=== PATIENT | female | born 1980 | race African-American/Black ===

== ENCOUNTER 2018-10-05 19:36 | Emergency (ER) | payer MEDICAID, SELFPAY ==
[2018-10-05 19:38] VITALS: BP 156/105; PULSE 96; RESP 18; TEMP 37.4; O2SAT 99; BMI 34.4
--- NOTE | 2018-10-05 20:00 | US_ITS ---
STUDY: FIRST TRIMESTER OBSTETRICAL ULTRASOUND REASON FOR EXAM: Female, 38 years old. Spotting in early . LMP: 08/02/2018 TECHNIQUE: Transvaginal real-time examined with grayscale image documentation. TECHNICAL QUALITY: Adequate. PRIOR ULTRASOUND: None. FINDINGS: There is visualization of a single gestational sac in a normal intrauterine position. The mean sac diameter (MSD) measures 1.26 cm, indicating an estimated gestational age (EGA) of 6 weeks, 0 days. The gestational sac shape is within normal limits. There is no demonstrated yolk sac. The placenta is not visualized secondary to early gestational age. There is no demonstrated embryo ( pole). The estimated gestation age (EGA) by LMP is 9 weeks, 1 days. The estimated date of delivery (SERAFIN) by LMP is 05/09/2019. The estimated gestation age (EGA) by US is 6 weeks, 0 days. The estimated date of delivery (SERAFIN) by US is 05/31/2019. The uterus measures 11.1 x 7.6 x 6.5 cm. There is a 2.2 x 2.1 x 2.1 cm fibroid of the lower uterine segment. There is a 2.4 x 2.4 x 1.8 cm right uterine fibroid. The cervix is closed. The right ovary measures 2.9 x 1.7 x 1.4 cm. There is no right ovarian cyst. There is no visualized right adnexal mass or complex lesion. The left ovary measures 3.4 x 2.4 x 1.4 cm. There is a hypervascular nodule of the left ovary measuring less than 2 cm most likely an involuting corpus luteum cyst. There is no visualized left adnexal mass or complex lesion. There is no fluid in the cul de sac. US/Transvaginal w/Preg US IMPRESSION: Single intrauterine gestational sac measuring 6 weeks and 0 days without visualized pole or yolk sac. Findings suggest a blighted ovum. Negative for subchorionic hemorrhage. The cervix is closed. There are multiple fibroids the largest of which are 2.2 x 2.1 x 2.1 cm in the lower uterus and 2.4 x 2.4 x 1.8 cm in the right uterus. Normal right ovary. Hypervascular hypoechoic nodule of the left ovary measuring less than 2 cm probably an involuting corpus luteum. No additional adnexal masses or free fluid. Electronically Signed: Marlee Rivera MD at 22:21 EST , Service support ,
--- NOTE | 2018-10-05 20:03 | ED.DCSUM_ITS ---
- ER Visit Summary Date of Service: 10/05/18 Chief Complaint: [] Vaginal bleeding saw BD SPECIAL EDUCATION TEACHER today 6 hours ago History of Present Illness: The patient is a 38 F [] reports she was seen today by her BD SPECIAL EDUCATION TEACHER found to be 5 weeks, by dates, had a full ECHO TECH evaluation pelvic exam pelvic ultrasound the pelvic ultrasound did not show from her description an obvious IUP she was told she need further outpatient management and is scheduled for additional therapy next week she did have blood drawn somewhere up she believes in the [facility], she presents concerned that she is having a miscarriage, she is having the same pelvic cramps at the same intermittent as she describes tiny amount of vaginal bleeding no other complaints She left the office 6 hours ago and she agrees that really nothing has changed since she left the office Physical Examination: [] General, no distress resting comfortably HEENT is generally unremarkable The neck is supple no adenopathy Cardiovascular, regular rate and rhythm Lungs, clear bilateral Abdomen, soft nontender, please note she just had a pelvic exam in the office so that is deferred she agrees Extremities, no clubbing cyanosis or edema Neurologic, awake alert answering questions appropriately moving all 4 extremities Do not have access to the studies given all of the above screening labs pelvic ultrasound will be done to evaluate for possibility of ectopic Patient CBC is unremarkable her quant is 12,000 the pelvic ultrasound shows gestational sac 6 weeks size no other acute abnormalities Just all the above with the patient discussed the concept of threatened AB the need to help with her product development specialist for further management she agrees we will confirm her ABO Rh status and have her follow-up with her physicians and return for change in symptoms Test Results: [] Emergency Department Course and Treatment: [] Treatment Plan: [] Disposition: [] Home stable Impression: [] Apparent early based on ultrasound, threatened AB This note was generated with [employer] software. It may contain incorrect words, spelling, and punctuation that were not noted in review of the chart prior to signing ED Disposition - Plan for ED Patient: Chief Complaint: Vag Bld, Preg Referrals: Tal Story MD [Primary Care Provider] -
[2018-10-05 22:11] LABS: hCG Titer Quant., Serum 12181 mIU/mL (<9 non-preg)
[2018-10-05] MEDS: 0.9% Normal Saline 1,000 ML 1000 ML IV (22:25)
[2018-10-05 22:26] LABS: Absolute Lymphocyte Count 2.22 X10^3/ul (0.83-4.51); Absolute Neutrophil Count 5.4 X10^3/uL (2.0-7.7); Basophil# 0.01 X10^3/uL; Basophil% 0.1 % (0-1); Eosinophil# 0.03 X10^3/uL; Eosinophils% 0.4 % (0-5); Hematocrit 34.3 % (37-47); Hemoglobin 10.7 g/dl (12.0-15.0); Lymphocyte # 2.22 X10^3/ul (4.0); Lymphocyte % 26.9 % (19-41); Mean Corp Hgb Conc 31.2 g/gl (32-36); Mean Corpuscular Hgb 23.2 pg (27.0-32.0); Mean Corpuscular Volume 74.2 fL (81-99); Mean Platelet Vol. 9.1 fl (6.2-12.0); Monocyte# 0.59 X10^3/uL; Monocyte% 7.2 % (0-10); Neutrophil # 5.38 X10^3/uL (2.7-7.7); Neutrophil % 65.3 % (47-70); POSITIVE COUNT NO; POSITIVE DIFFERENTIAL NO; POSITIVE MORPHOLOGY NO; Platelet Count 281 K/mm3 (150-450); RBC Distribution Width CV 16.4 % (11.6-14.6); RBC Distribution Width SD 44.2 fl (35.1-43.9); Red Blood Count 4.62 M/mm3 (4.2-5.4); White Blood Count 8.2 K/mm3 (4.4-11.0)
[2018-10-05 22:27] VITALS: BP 125/86; PULSE 85; RESP 16; O2SAT 100
--- NOTE | 2018-10-05 22:46 | DCINST.ED_ITS ---
ED Disposition - Plan for ED Patient: Chief Complaint: Vag Bld, Preg Instructions: ED Miscarriage Poss Referrals: Tal Story MD [Primary Care Provider] - Additional Instructions: Please follow-up with her outpatient providers including her recreation leader tomorrow return for change in symptoms
[2018-10-05 22:59] VITALS: BP 124/82; PULSE 74; RESP 16; O2SAT 98
--- OUTSIDE RECORDS SUMMARY | 2018-11-21 15:23 | XMS RPT_ITS ---
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 (HPV) D*INVALID FOR*02/03/2016 Surveillance of previously prescribed contracep*INVALID FOR*02/03/2016 Knee sprain and strain [WSD2684] INVALID FOR*02/03/2016 Patellofemoral disorder of right knee [M22.2X1] INVALID FOR*02/03/2016 Supervision of other normal [Z34.80] INVALID FOR*02/03/2016 More... Trichomonal vaginitis in [O23.599, A5*INVALID FOR*02/03/2016 More... Encounter for supervision of normal first pregn*INVALID FOR*09/23/2015 Encounter for supervision of normal i*INVALID FOR*02/03/2016 Chronic bilateral low back pain without sciatic*INVALID FOR* Encounter Status:Closed by BROCK ROBIN MD on 05/09/18 PROGRESS Observed: 11/25/2017 Status: COMPLETED Source: [facility] 10:54 AM [facility] REPOSITORY HNO ID: [id number] Author: Nedra Tran (Neftali) TANESHA Tovar Service: (none) Author Type: Nurse Practitioner Type: Progress Notes Filed: 11/25/2017 10:57 AM Note Text: HPI Patient presents with: stomach pain and nausea: x 1 week-zofran is not helping and worsening pain Pt reports seen at [facility] ED for stomach pain. Reviewed with pt urgent care policy of not completing ED f/u. Pt verbalized understanding. Family will transport to local ED for eval/tx. ROS Physical Exam ALLERGIES ALLERGIES DATE TYPE / CODE NAME / CODE REACTION SEVERITY SOURCE 10/27/2018 Drug iodine/[id number] Hives Unknown [facility] Allergy/4160 852(RXNORM) [facility] [address](SNOMED Repository CT) 09/28/2005 DRUG IODINE RASH [facility] INGREDI/[address] [place] [address](SNOMED Repository CT) ENCOUNTERS ENCOUNTERS ADMIT/DISCHARGE ACCOUNT ADMITTING ENCOUNTER LOCATION SOURCE NUMBER CLASS 11/07/2018/11/08/[id number] [place] Repository 10/27/2018/10/28/19 [id number] Emergency Jose Ramon[address] ing:ED Repository 10/19/2018/10/23/[id number] Repository 10/10/2018/10/11/20 [id number] Ambulatory [address] Repository 10/07/2018/10/07/[id number] Repository 10/05/2018/10/05/20 [id number] Emergency Jose Ramon[address] ing:ED Repository 10/05/2018/10/05/20 [id number] Ambulatory [address] [place] Repository 10/05/2018/10/05/20 [id number] Ambulatory [address] [place] Repository 10/05/2018/10/10/20 [id number] Ambulatory [address] [place] Repository 10/05/2018/10/05/20 [id number] Ambulatory [address] [place] Repository 08/23/2018/08/24/20 [id number] Ambulatory [address] [place] Repository 08/15/2018/08/16/20 [id number] Ambulatory [address] [place] Repository 05/09/2018/05/10/20 [id number] Ambulatory [address] [place] Repository 11/25/2017/11/25/19 [id number] Ambulatory [address] [place] Repository PAYERS PAYERS ENCOUNTER GUARANTOR PAYER SUBSCRIBER SOURCE 10/27/2018 RAYMOND MARK [facility] Insurance:TOBY POLO: Replaced By [facility] GILBERT parmar Number: [id number] [id number] Repository [address]Kyj: [phone]) Date:2018-10-27P O [phone] (HP) [address]ATTN: [place] [address]IZ: 10/27/2018 Secondary NOT GIVENUNK Jose Ramon Insurance:SELF PAY [facility]: Effective Repository Date:2018-10-27 10/05/2018 SHANIQUIA L Primary SHANIQUIA L [facility] Insurance:[address] [facility] [id number] [id number] Repository [address] [place] [address] Date:2018-10-05P O [phone]: [phone] [address]ATTN: CLAIMS [phone] (HP) [place] [address]WS: 10/05/2018 Secondary NOT GIVENUNK Jose Ramon Insurance:SELF PAY [facility] Number: Effective Repository Date:2018-10-05
== END 2018-10-05 23:01 | disposition home or self-care (01) ==
PROVIDERS: Emergency Provider Emergency Medicine; Family Provider Internal Medicine; PCP Internal Medicine
DX: O20.0 Threatened abortion (principal)
CPT/HCPCS: 76817; 84702; 85025; 86900; 96360; 99283; J7030; A4216

== ENCOUNTER 2018-10-27 22:12 | Emergency (ER) | payer MEDICAID, SELFPAY ==
[2018-10-27 22:13] VITALS: BP 138/79; PULSE 82; RESP 16; TEMP 36.8; O2SAT 100; BMI 33.5
[2018-10-27 22:57] LABS: Absolute Lymphocyte Count 1.87 X10^3/ul (0.83-4.51); Absolute Neutrophil Count 4.4 X10^3/uL (2.0-7.7); Basophil# 0.03 X10^3/uL; Basophil% 0.4 % (0-1); Eosinophil# 0.11 X10^3/uL; Eosinophils% 1.6 % (0-5); Hematocrit 33.4 % (37-47); Hemoglobin 10.2 g/dl (12.0-15.0); Lymphocyte # 1.87 X10^3/ul (4.0); Lymphocyte % 26.6 % (19-41); Mean Corp Hgb Conc 30.5 g/gl (32-36); Mean Corpuscular Hgb 23.4 pg (27.0-32.0); Mean Corpuscular Volume 76.6 fL (81-99); Mean Platelet Vol. 10.8 fl (6.2-12.0); Monocyte# 0.56 X10^3/uL; Neutrophil # 4.44 X10^3/uL (2.7-7.7); Neutrophil % 63.1 % (47-70); POSITIVE COUNT NO; POSITIVE DIFFERENTIAL NO; POSITIVE MORPHOLOGY NO; Platelet Count 212 K/mm3 (150-450); RBC Distribution Width CV 17.5 % (11.6-14.6); RBC Distribution Width SD 47.4 fl (35.1-43.9); Red Blood Count 4.36 M/mm3 (4.2-5.4)
[2018-10-27 23:10] LABS: Anion Gap 10 (5-15); BUN 6 mg/dL (7-18); BUN/Creat Ratio 8.2 RATIO (10-20); Calcium,Total 8.9 mg/dL (8.5-10.1); Chloride 106 mmol/L (98-107); Creatinine, Serum 0.74 mg/dL (0.55-1.02); EST Glomerular Filtration Rate 94 mL/min (>60); Est Glom Filt Rate - Afr Amer 114 mL/min (>60); Estimated Creatinine Clearance 89.88 ml/min; Glucose 116 mg/dL (74-106); Potassium 3.9 mmol/L (3.5-5.1); Sodium Level 137 mmol/L (136-145)
[2018-10-27 23:20] LABS: Pregnancy, Serum, hCG Quali. POSITIVE Negative (0-9 Nonpreg)
[2018-10-27 23:21] LABS: hCG Titer Quant., Serum 21 mIU/mL (<9 non-preg)
[2018-10-27] MEDS: 0.9% Normal Saline 1,000 ML 999 ML IV (23:29)
[2018-10-27] MEDS: Ketorolac 30 MG/ML Syringe IV (23:29)
[2018-10-27] MEDS: Ondansetron 4 MG/2 ML Vial IV (23:30)
[2018-10-27 23:37] LABS: Lipase 92 U/L (73-393)
[2018-10-27 23:40] VITALS: BP 138/74; PULSE 68; RESP 16; O2SAT 100
[2018-10-27 23:44] LABS: Bacteria 0 SEEN /hpf (None Seen); Mucous, Urine 0 SEEN /hpf (<or=2+); Red Blood Cells-Urine 0 SEEN /hpf (0-5); Squamous Epithelial Cells - UA 0 SEEN /hpf (5-10); White Blood Cells 0 SEEN /hpf (0-5)
[2018-10-27 23:46] LABS: Color, Urine Yellow (Yellow); Glucose, Dipstick Normal (Normal); Ketone-Dipstick Negative (Negative); Leukocyte Esterase-Dipstick Negative /ul (Negative); Nitrite-Dipstick Negative (Negative); Occult Blood-Urine 25 /ul (Negative); Protein-Dipstick Negative (Negative); Urine Bilirubin Dipstick Negative (Negative); Urine Clarity Clear (Clear); Urine Urobilinogen Normal (Normal); Urine pH 6.5 (5.0 - 8.0)
[2018-10-27 23:53] LABS: AST(SGOT) 24 U/L (15-37); Alanine Aminotransfer ALT/SGPT 19 U/L (13-56); Albumin, Serum 3.4 g/dL (3.2-5.0); Alkaline Phosphatase 58 U/L (45-117); Bilirubin, Direct 0.08 mg/dL (0.00-0.30); Globulin 4.1 g/dL (2.2-4.2); Protein, Total 7.5 g/dL (6.4-8.2)
--- NOTE | 2018-10-28 00:26 | ED.VISSUMM ---
- ER Visit Summary Date of Service: 10/28/18 Chief Complaint: Abdominal pain History of Present Illness: The patient is a 38 F who presents with abdominal pain. Is been present for 5 days. She complains of diffuse cramping pain. The patient provides a history but the visitor frequently interrupts and conflicts with this. The patient denied any vomiting however the visitor stated that she has been vomiting at which point the patient said that she has had some small emesis. Patient denies any vaginal bleeding. She denies any vaginal discharge. She had a fever of 102 with the initial onset of symptoms but has only been running a low-grade fever since that time with temperature 100.5. She did have a recent miscarriage. She had seen her OB and then presented here to the emergency department. She had a pelvic ultrasound most consistent with blighted ovum. She states she did follow-up with OB and had a repeat ultrasound which showed a completed miscarriage. Physical Examination: Afebrile vitals normal Moist mucous membranes Heart regular rate and rhythm Lungs are clear Abdomen soft nondistended she does have some diffuse nonfocal tenderness no guarding no rebound Alert Test Results: Labs including CBC CMP lipase unremarkable. Urinalysis unremarkable. Quantitative hCG 21. Emergency Department Course and Treatment: Patient was treated with IV fluids Toradol and Zofran. She is improved on reevaluation. Given that she had a follow-up ultrasound and was told that she had completed her miscarriage and her quant is now down to 21 I do not believe any further obstetrical workup necessary at this time such as repeat ultrasound. She was advised on supportive care. She was given a prescription for antiemetics. She understands to return for new or worsening symptoms. She was discharged. Treatment Plan: [] Disposition: Discharge Impression: Abdominal pain Vomiting Diarrhea This note was generated with [facility] dictation software. It may contain incorrect words, spelling, and punctuation that were not noted in review of the chart prior to signing ED Disposition - Plan for ED Patient: Chief Complaint: Abd Pain Referrals: Tal Story MD [Primary Care Provider] -
--- NOTE | 2018-10-28 00:30 | ED.DCSUM_ITS ---
- ER Visit Summary Date of Service: 10/28/18 Chief Complaint: Abdominal pain History of Present Illness: The patient is a 38 F who presents with abdominal pain. Is been present for 5 days. She complains of diffuse cramping pain. The patient provides a history but the visitor frequently interrupts and conflicts with this. The patient denied any vomiting however the visitor stated that she has been vomiting at which point the patient said that she has had some small emesis. Patient denies any vaginal bleeding. She denies any vaginal discharge. She had a fever of 102 with the initial onset of symptoms but has only been running a low-grade fever since that time with temperature 100.5. She did have a recent miscarriage. She had seen her OB and then presented here to the emergency department. She had a pelvic ultrasound most consistent with blighted ovum. She states she did follow-up with OB and had a repeat ultrasound which showed a completed miscarriage. Physical Examination: Afebrile vitals normal Moist mucous membranes Heart regular rate and rhythm Lungs are clear Abdomen soft nondistended she does have some diffuse nonfocal tenderness no guarding no rebound Alert Test Results: Labs including CBC CMP lipase unremarkable. Urinalysis un remarkable. Quantitative hCG 21. Emergency Department Course and Treatment: Patient was treated with IV fluids Toradol and Zofran. She is improved on reevaluation. Given that she had a follow-up ultrasound and was told that she had completed her miscarriage and her quant is now down to 21 I do not believe any further obstetrical workup necessary at this time such as repeat ultrasound. She was advised on supportive care. She was given a prescription for antiemetics. She understands to return for new or worsening symptoms. She was discharged. Treatment Plan: [] Disposition: Discharge Impression: Abdominal pain Vomiting Diarrhea This note was generated with [employer] dictation software. It may contain incorrect words, spelling, and punctuation that were not noted in review of the chart prior to signing ED Disposition - Plan for ED Patient: Chief Complaint: Abd Pain Referrals: Tal Story MD [Primary Care Provider] -
--- NOTE | 2018-10-28 00:31 | ED.DEP ---
ED Disposition - Plan for ED Patient: Chief Complaint: Abd Pain Instructions: ED Abdominal Pain Unkn Cause Prescriptions: Ondansetron [Zofran Odt] 4 mg PO Q8H PRN PRN #10 tab PRN Reason: Nausea Referrals: Tal Story MD [Primary Care Provider] -
[2018-10-28 00:47] VITALS: BP 125/73; PULSE 72; RESP 18; O2SAT 100
== END 2018-10-28 00:48 | disposition home or self-care (01) ==
LOC: ED 10-28 00:35
PROVIDERS: Emergency Provider Emergency Medicine; Family Provider Internal Medicine; PCP Internal Medicine
DX: R10.84 Generalized abdominal pain (principal); R19.7 Diarrhea, unspecified; R11.2 Nausea with vomiting, unspecified
CPT/HCPCS: 80048; 80076; 81001; 83690; 84702; 84703; 85025; 96361; 96374; 96375; 99283; J7030; A4216; J2405

== ENCOUNTER → 2019-01-23 09:15 | Outpatient (CLI) | payer MEDICAID, SELFPAY ==
[2019-01-23 09:10] VITALS: BMI 33.5
[2019-01-23 10:56] LABS: Absolute Lymphocyte Count 1.47 X10^3/ul (0.83-4.51); Absolute Neutrophil Count 2.2 X10^3/uL (2.0-7.7); Basophil# 0.01 X10^3/uL; Basophil% 0.2 % (0-1); Eosinophil# 0.05 X10^3/uL; Eosinophils% 1.2 % (0-5); Hematocrit 40.6 % (37-47); Lymphocyte # 1.47 X10^3/ul (4.0); Lymphocyte % 35.1 % (19-41); Mean Corpuscular Hgb 26.4 pg (27.0-32.0); Mean Corpuscular Volume 82.4 fL (81-99); Mean Platelet Vol. 9.5 fl (6.2-12.0); Monocyte# 0.42 X10^3/uL; Neutrophil # 2.24 X10^3/uL (2.7-7.7); Neutrophil % 53.5 % (47-70); POSITIVE COUNT NO; POSITIVE DIFFERENTIAL NO; POSITIVE MORPHOLOGY NO; Platelet Count 234 K/mm3 (150-450); RBC Distribution Width CV 18.1 % (11.6-14.6); RBC Distribution Width SD 54.9 fl (35.1-43.9); Red Blood Count 4.93 M/mm3 (4.2-5.4); White Blood Count 4.2 K/mm3 (4.4-11.0)
[2019-01-23 11:28] LABS: Glucose Challenge Gest 1H 50g 116 mg/dL (70-140); T4 Free Direct 1.12 ng/dL (0.76-1.46); Thyroid Stim Hormone (TSH) 1.18 uIU/mL (0.358-3.74)
[2019-01-23 12:05] LABS: HIV - WCH Non-Reactive (Nonreactive); Rubella IgG 50.6 IU/mL
[2019-01-23 18:31] LABS: Protein, Urine (Random) 9.6 mg/dL (<11.9); Protein:Creat Ratio 46 mg/g CRE (0-200)
[2019-01-23 20:14] LABS: Chlamydia Trachomatis by PCR Negative (Negative); Neisserai gonorrhoeae by PCR Negative (Negative); Probe Check PASS; Sample Adequacy Control PASS; Specimen Processing Control PASS
[2019-01-24 14:07] LABS: Hemoglobin Fraction A 97.8 % (96.4-98.8); Hemoglobin Fraction A2 2.2 % (1.8-3.2); Hemoglobin Fraction C 0 % (0.0); Hemoglobin Fraction F 0 % (0.0-2.0); Hemoglobin Fraction S 0 % (0.0); Hemoglobin Solubility,Panel Negative (Negative)
[2019-01-25 14:35] LABS: HEPATITIS B SURFACE AG Negative (Negative)
[2019-01-26 03:38] LABS: Rapid Plasmin Reagin (RPR) NONREACTIVE (NONREACTIVE)
[2019-01-29 03:05] LABS: HPV Genotype 16, Aptima Negative (Negative)
[2019-01-29 11:47] LABS: HPV APTIMA, High Risk Positive (Negative); HPV Genotype 18,45 Aptima Negative (Negative)
== END ==
PROVIDERS: Family Provider Internal Medicine; PCP Internal Medicine; Referring Provider Obstetrics & Gynecology; Visit Provider Obstetrics & Gynecology
DX: O09.90 Supervision of high risk pregnancy, unspecified, unspecified trimester (principal); O99.210 Obesity complicating pregnancy, unspecified trimester; O99.280 Endocrine, nutritional and metabolic diseases complicating pregnancy, unspecified trimester; E01.0 Iodine-deficiency related diffuse (endemic) goiter; Z3A.00 Weeks of gestation of pregnancy not specified; Z87.59 Personal history of other complications of pregnancy, childbirth and the puerperium
CPT/HCPCS: 36415; 82570; 82950; 83021; 84156; 84439; 84443; 85025; 85660; 86592; 86703; 86762; 86850; 86900; 87086; 87088; 87340; 87491; 87591; 87624; 88175; G0145

== ENCOUNTER → 2019-01-26 13:53 | Outpatient (CLI) | payer MEDICAID, SELFPAY ==
[2019-01-23 09:10] VITALS: BMI 33.5
--- NOTE | 2019-01-26 13:55 | US_ITS ---
STUDY: THYROID ULTRASOUND REASON FOR EXAM: Female, 38 years old. Thyromegaly TECHNIQUE: Ultrasound evaluation of the thyroid was performed with real-time and static ocampo-scale imaging. COMPARISON: None. FINDINGS: RIGHT LOBE: The right lobe of the thyroid gland measures 5.2 x 2 x 1.7 cm. There is a homogeneous echotexture. Single solid nodule measuring 6 x 5 x 3 mm in the mid to lower pole region. LEFT LOBE: The left lobe of the thyroid gland measures 5.5 x 2.0 x 1 point cm. There is a homogeneous echotexture. There are no demonstrated solid, cystic or complex lesions. ISTHMUS: The isthmus measures 0.5 cm. The regional lymph nodes are normal. US/Thyroid IMPRESSION: Mild thyromegaly with small subcentimeter right lobe thyroid nodule Electronically Signed: Cy Renteria DO at 12:48 EDT Tel , Service support ,
== END ==
PROVIDERS: Family Provider Internal Medicine; PCP Internal Medicine; Referring Provider Obstetrics & Gynecology; Visit Provider Obstetrics & Gynecology
DX: E01.0 Iodine-deficiency related diffuse (endemic) goiter (principal)
CPT/HCPCS: 76536

== ENCOUNTER → 2019-02-05 | Outpatient (CLI) | payer MEDICAID, SELFPAY ==
[2019-02-05 10:07] VITALS: BMI 33.5
== END | disposition home or self-care (01) ==
LOC: LAB 10:35
PROVIDERS: Family Provider Internal Medicine; PCP Internal Medicine; Referring Provider Obstetrics & Gynecology; Visit Provider Obstetrics & Gynecology
DX: Z34.81 Encounter for supervision of other normal pregnancy, first trimester (principal); Z31.430 Encounter of female for testing for genetic disease carrier status for procreative management
CPT/HCPCS: 36415

== ENCOUNTER → 2019-03-06 14:20 | Outpatient (CLI) | payer MEDICAID, SELFPAY ==
[2019-03-06 10:29] VITALS: BMI 33.5
--- NOTE | 2019-03-06 14:22 | US_ITS ---
STUDY: OBSTETRICAL ULTRASOUND - LIMITED REASON FOR EXAM: Female, 38 years old. Assess viability. LMP: 09/25/2018 PRIOR ULTRASOUND: None. TECHNIQUE: Transabdominal and Transvaginal TECHNICAL QUALITY: Adequate. FINDINGS: There is a single intrauterine fetus. The fetus is in a cephalic presentation. There is no demonstrated cardiac activity. The placenta is anterior There are Grade 0 placental changes. The cervix measures 2.83 cm in length. The cervix is low lying and possibly covers the internal os. The crown-rump length measures 5.49 cm corresponding to gestational age of 12 weeks and 1 day. US/OB Limited (No Biometrics) IMPRESSION: Findings consistent with failure. Anterior and low-lying placenta with questionable placenta previa. Electronically Signed: Sarah Victoria MD at 16:56 EDT Tel , Service support ,
== END ==
PROVIDERS: Family Provider Internal Medicine; PCP Internal Medicine; Referring Provider Obstetrics & Gynecology; Visit Provider Obstetrics & Gynecology
DX: O36.80X0 Pregnancy with inconclusive fetal viability, not applicable or unspecified (principal)
CPT/HCPCS: 76815

== ENCOUNTER 2019-03-08 08:55 | Day surgery (SDC) | payer MEDICAID, SELFPAY ==
[2019-03-06 10:29] VITALS: BMI 33.5
--- NOTE | 2019-03-07 03:06 | HP.PCM_ITS ---
- Problem List (1) Abnormal test Status: Acute Comment: high risk trisomy 18, patient wishes to continue , have US with MFM (2) Hx LEEP (loop electrosurgical excision procedure), cervix, Status: Acute Comment: check cervical length at 18 weeks (3) Hypertension Status: Chronic Comment: baseline labs ordered. ekg. no meds. (4) Genital herpes Status: Acute Comment: valtrex at 36 weeks (5) HPV test positive Status: Acute Comment: repeat pap (6) Thyromegaly Status: Acute Comment: tsh free t4 thyroid ultrasound (7) Depression affecting Status: Acute Comment: celexa, counseling recommended (8) Status: Acute Qualifiers: Comment: carrier, genetic, and ntd screening desired. 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: No Is patient in pain?: No Allergies iodine Allergy (Verified 03/06/19 10:29) Hives Medications Pnv No.121/Iron/Folic Acid [ Multivitamin Tablet] 1 ea PO DAILY 10/05/18 [History Confirmed 03/06/19] Ondansetron [Zofran Odt] 4 mg PO Q8H PRN PRN #10 tab 10/28/18 [Rx Confirmed 03/06/19] citalopram 20 mg tablet 20 mg PO DAILY #30 tab 01/23/19 [Rx Confirmed 03/06/19] promethazine 12.5 mg tablet 12.5 mg PO Q6H PRN #120 tab 01/23/19 [Rx Confirmed 03/06/19] Last Menstral Period: 11/21/18 Zika: Zika virus screening: Negative : No PFSH PFSH Medical History Low grade squamous intraepithelial lesion (LGSIL) (Resolved) Surgical History H/O hernia repair (Acute) Family History Unknown Diabetes Social History Smoking Status: Never smoker alcohol intake: never substance use type: does not use caffeine: Yes what type of physical activity do you participate in: walking seatbelt use: always do you feel safe at home: Yes additional social history: - Works at [employer] Pregancy History 4 Elective abortions Hx Para 2 Spontaneous abortions 1 Hx # Term Pregnancies Ectopic pregnancies Hx # Pregnancies Multiple births # of living children Past Pregnancies Del. Date Name GA/Weeks Outcome Route Bth Weight Gen [facility] 2007 Tayshaun live - full term [facility] Unknown 2015 Major live - full term Male [facility] Unknown 2017 SAB HPI 14 WEEK OB: Details: IDA IQBAL is a 38 year old who presents for routine OB visit. she denies any vaginal bleeding or lof. on exam and confirmed by formal ultrasound she has a confirmed missed ab with CRL measuring only 12 weeks. she has had abnormal genetic screening at high risk for trisomy 18. ACOG First Trimester First Trimester: Desire for , Alcohol, Tobacco Cessation, Illicit/Recreational Drug/Substance Use, Intimate Partner Violence, Barriers to care, Unstable Housing, Communication Barriers, Environmental/Work Hazards, Anticipated Course of Care, Toxoplasmosis Precations, Use of Any medications, Sexual activity, Exercise, Dental Care, Sauna/Hot tub use, Seat Belt use, Childbirth classes/Hospital facilities, , Travel, Indications for US and Screening for Aneuploidy Diagnostics Diagnostics Labs Blood Type B POSITIVE 01/23/19 Antibody Screen NEGATIVE 01/23/19 Hct 40.6 % (37-47) 01/23/19 Hgb 13.0 g/dl (12.0-15.0) 01/23/19 Obstetrics Ultrasound 03/06/19 Rubella IgG Antibody 50.6 IU/mL 01/23/19 RPR NONREACTIVE (NONREACTIVE) 01/23/19 Hep Bs Antigen Negative (Negative) 01/23/19 Chlam trachomat DNA PCR Negative (Negative) 01/23/19 N.gonorrhoeae DNA (PCR) Negative (Negative) 01/23/19 Glucose 1 Hr 50 gm 116 mg/dL (70-140) 01/23/19 Rhogam given: No 11/16/15 Miscellaneous Test Pending 02/05/19 Details: HIV: Urine Culture: Sequential Screen: NIPT Screen: ROS Const Reports system reviewed and no additional complaints, except as docu Card Reports system reviewed and no additional complaints, except as docu Resp Reports system reviewed and no additional complaints, except as docu GI Reports system reviewed and no additional complaints, except as docu, Reports nausea Reports system reviewed and no additional complaints, except as docu Musc Reports system reviewed and no additional complaints, except as docu Exam Const General: cooperative, healthy appearing, comfortable, anxious HENMT Head: normal to inspection Nose: external nose normal Face and sinus: normal facial exam Neck Neck: normal visual inspection, full ROM, no lymphadenopathy Thyroid: thyroid normal Chest Chest palpation & inspection: normal inspection of the chest Resp Effort & Inspection: normal respiratory effort Other: Cervical Exam: Extrem General: pedal edema Results [id number] Office Urine Glucose Negative Last Edit by Chel Paredes on 03/06/19 10:33 Office Urine Protein Negative Last Edit by Chel Paredes on 03/06/19 10:33 Assessment & Plan Problems 1. Hypertension I10 2. Depression affecting O99.340; F32.9 3. Hx LEEP (loop electrosurgical excision procedure), cervix, O34.40; Z98.890 4. History of pre-eclampsia Z87.59 5. 15 weeks gestation of Z3A.15 6. Low grade squamous intraepithelial lesion (LGSIL) 7. Genital herpes A60.00 8. Subchorionic hematoma in first trimester O41.8X10; O46.8X1 9. Supervision of high risk in second trimester O09.92 10. HPV test positive 11. Multigravida of advanced maternal age in first trimester O09.521 12. Thyromegaly E01.0 13. Missed O02.1 Plan recommend suction d and c. discussed surgical risks including risks of anesthesia, infection, bleeding, injury to bowel, bladder or blood vessels, and patient wishes to proceed with surgery. Orders Orders: POC Urinalysis 2 Dip (Clinic) 03/06/19 OB Limited 03/06/19 O36.80X0 Coding Level of Care Code Off vis,est,level 4 Diagnoses Hypertension I10 Depression affecting O99.340; F32.9 Hx LEEP (loop electrosurgical excision procedure), cervix, O34.40; Z98.890 History of pre-eclampsia Z87.59 15 weeks gestation of Z3A.15 Weeks of gestation: 15 weeks Low grade squamous intraepithelial lesion (LGSIL) Genital herpes A60.00 Subchorionic hematoma in first trimester O41.8X10; O46.8X1 Supervision of high risk in second trimester O09.92 Trimester: second trimester HPV test positive Multigravida of advanced maternal age in first trimester O09.521 Trimester: first trimester Thyromegaly E01.0 Missed O02.1
[2019-03-08] VITALS (7 sets, daily range): BP systolic 132–151; BP diastolic 75–93; PULSE 72–111; RESP 18; TEMP 36.1–36.7; O2SAT 100; BMI 36.4
--- NOTE | 2019-03-08 | POC_PTH ---
PATIENT: IDA IQBAL LOC: [facility] U#:[id number] AGE/SX: 38/F ROOM: RE03/08/[address]: Dr. Kirti Sweeney MD : 1980 BED: DIS: 03/08/2019 SPEC #: [id number] RECD: 03/08/19 13:04 STATUS: ROSA SALVATORE #: [id number] TANYA: 03/08/19 00:[address]: Kirti Sweeney DEPT: SURGICAL PATHOLOGY RECD BY: Fabian Atkinson ENTERED: 03/08/19 13:04 SP TYPE: PROD CONC OTHR DR: Dr. Tal Story MD Tissues: Product of conception, NOS Procedures: Surgery Specimen Level IV HEADER OPERATION: Dilation and curettage, suction PRE-OP DIAGNOSIS: Missed TISSUE SUBMITTED: Products of conception, LMP 11/21/18 MICROSCOPIC DIAGNOSIS Endometrium, curettage: Portions of macerated fetus, chorionic villi and decidualized tissue consistent with products of conception. AM:yanick 03/09/19 MICROSCOPIC DESCRIPTION Slides are reviewed. GROSS DESCRIPTION Received in fixative is one container labeled with the patient's name and designated products of conception. The specimen consists of multiple irregular fragments of pink-austin soft tissue that in aggregate measure 8 x 7 x 1.2 cm. The specimen contains portions of a macerated fetus measuring 7 cm in length. Turntable Operator portions are submitted for cytogenetic studies. Turntable Operator portions of fetus and tissue are submitted in two cassettes. / AM:yanick 03/08/19 TC:5 CPT: 72005
[2019-03-08 09:26] LABS: Hemoglobin 13.9 g/dl (12.0-15.0); Mean Corp Hgb Conc 33.9 g/gl (32-36); Mean Corpuscular Hgb 28.1 pg (27.0-32.0); Mean Corpuscular Volume 82.8 fL (81-99); Platelet Count 209 K/mm3 (150-450); RBC Distribution Width CV 15.2 % (11.6-14.6); RBC Distribution Width SD 45.3 fl (35.1-43.9); Red Blood Count 4.95 M/mm3 (4.2-5.4); White Blood Count 5.4 K/mm3 (4.4-11.0)
[2019-03-08] MEDS: Doxycycline 100 MG CAPSULE PO (09:26)
[2019-03-08 09:27] LABS: Scan Indicated on CBC? Y/N NO
--- NOTE | 2019-03-08 10:33 | PCM.OPRPT ---
Problem List (1) Abnormal test Status: Acute Comment: high risk trisomy 18, patient wishes to continue , have US with MFM (2) Hx LEEP (loop electrosurgical excision procedure), cervix, Status: Acute Comment: check cervical length at 18 weeks (3) Hypertension Status: Chronic Comment: baseline labs ordered. ekg. no meds. (4) Genital herpes Status: Acute Comment: valtrex at 36 weeks (5) HPV test positive Status: Acute Comment: repeat pap (6) Thyromegaly Status: Acute Comment: tsh free t4 thyroid ultrasound (7) Depression affecting Status: Acute Comment: celexa, counseling recommended (8) Status: Acute Qualifiers: Comment: carrier, genetic, and ntd screening desired. (9) AMA (advanced maternal age) multigravida 35+ Status: Acute Qualifiers: Comment: genetic conseling, plan 36 week growth us (10) Supervision of high-risk Status: Acute Qualifiers: Comment: SERAFIN 09/04/19 Sherine Sanabria (11) History of pre-eclampsia Status: Acute Comment: baseline labs, baby ASA at 12 weeks Report of Operation Date of Procedure: 03/08/19 Pre-Operative Diagnosis: Suspected trisomy 18, missed AB Post-Operative Diagnosis: Same Surgery/Procedure Performed:: Suction D&C Description of Surgical Findings:: 12-week size uterus Type of Anesthesia:: Local MAC Special Medications: Cytotec Specimen's removed: Products of conception Drains: None Estimated Blood Loss (mL): 200 cc Fluids Replaced: Crystalloid Description of Procedure: Patient was taken to the operating room and placed under MAC local anesthesia. She was prepped and draped in the normal sterile fashion the dorsal lithotomy position. Bladder was drained of clear urine and anterior lip of the cervix was grasped and the uterus sounded to 12 cm . Cervix was progressively dilated to allow passage of a 12 mm suction curette. Progressive passes were made removing the retained products of conception without complication. Sharp curettage confirmed complete removal of the retained products. All instruments were removed from the vagina and excellent hemostasis was noted and the patient was taken to recovery in stable condition. Grafts/Implants Used: None - Complications None - Admit VTE Documentation VTE Present on Admission: No VTE Mechan Device Prophylaxis: SCD's
[2019-03-08] MEDS: miSOPROStol 200 MCG Tablet ×2 (11:15)
--- NOTE | 2019-03-08 11:57 | DCINST_ITS ---
Discharge Diet: No Restrictions Discharge Activity: Return to Normal Activity, May Shower, May Take a Tub Bath Instructions: Understanding Miscarriage: Emotions, Understanding Miscarriage: Trying Again, Understanding Miscarriage: Recovery Allergies/Adverse Reactions: Allergies iodine Allergy (Verified 03/08/19 09:20) Hives Medications to take at Discharge NK 03/07/19 Primary Care Physician: Tal Story MD [Primary Care Provider] - Test Results: Test results from this visit will be discussed in further detail at your follow- up appointment, if applicable. Please Follow Up With: Kirti Sweeney MD - [phone]
== END 2019-03-08 12:40 | disposition home or self-care (01) ==
LOC: SDC 08:57 → AC 08:57
PROVIDERS: Family Provider Internal Medicine; PCP Internal Medicine; Referring Provider Obstetrics & Gynecology; Visit Provider Obstetrics & Gynecology
PROC: (CPT 59821; principal; 2019-03-08 10:15)
DX: O02.1 Missed abortion (principal); I10 Essential (primary) hypertension; Z79.899 Other long term (current) drug therapy
CPT/HCPCS: 59821; 85027; 86850; 86900; 88305; J7120

== ENCOUNTER 2019-06-24 10:41 | Emergency (ER) | payer MEDICAID, SELFPAY ==
[2019-03-23 08:28] VITALS: BMI 36.4
[2019-06-24 10:42] VITALS: BP 131/85; PULSE 79; RESP 16; TEMP 36.6; O2SAT 99; BMI 33.5
--- NOTE | 2019-06-24 10:57 | ED.VISSUMM ---
- ER Visit Summary Date of Service: 06/24/19 Chief Complaint: Nausea for 3 days History of Present Illness: The patient is a 38 F. Past medical history. Prior umbilical hernia repair. Patient states the last 3 days she had nausea but no vomiting or diarrhea. No dysuria. No vaginal bleeding or discharge. Last menstrual period was May 19 she is only a few days late. States her boyfriend has similar symptoms of nausea she gave it to him. No falls or head trauma. No neurological symptoms. Patient states she took a urine test at home that was negative she is concerned she could be and wants to be tested. Physical Examination: Well-appearing young female. Vital signs stable afebrile. HEENT exam normal. Dry reactive light. No facial droop. No trauma to her face or scalp. Nontender. Neck nontender no lymphadenopathy. No meningismus. Able to touch chin to chest. Lungs clear to auscultation bilaterally. Heart regular rhythm no murmur. Abdomen is soft and nontender. Normal bowel sounds no peritoneal signs. Extremities moves all 4. Neurovascular intact. Equal and symmetrical sustainable design consultant strength. Equal symmetrical dorsi and plantar flexion. Neurologically she is awake alert with no focal motor or sensory deficits. NIH score is 0. Test Results: test shows Emergency Department Course and Treatment: Patient with a normal exam with nausea. She is concerned she may be wants to be tested. He has Zofran for nausea. Treatment Plan: [] Disposition: Discharge Impression: Acute nausea secondary to viral syndrome. This note was generated with [employer] dictation software. It may contain incorrect words, spelling, and punctuation that were not noted in review of the chart prior to signing ED Disposition - Plan for ED Patient: Referrals: Tal Story MD [Primary Care Provider] -
--- NOTE | 2019-06-24 11:00 | ED.DEP ---
ED Disposition - Plan for ED Patient: Disposition: Home or Assisted Living Instructions: VOMITING (7y-Adult) Prescriptions: Ondansetron [Zofran Odt] 4 mg PO Q8H PRN PRN #10 tab PRN Reason: Nausea Prescription Printed Referrals: Tal Story MD [Primary Care Provider] - Additional Instructions: Zofran as needed for nausea. You may either swallowed or dissolve underneath her tongue. Plenty fluids and rest. Follow-up if not improving.
[2019-06-24] MEDS: Ondansetron ODT 4 MG Tablet 8 MG PO (11:03)
[2019-06-24 11:35] LABS: Internal QC Validated? YES +Cl - CLEAR BKGD; Pregnancy, Serum, hCG Quali. NEGATIVE Negative
== END 2019-06-24 11:45 | disposition home or self-care (01) ==
LOC: ED 11:11
PROVIDERS: Emergency Provider Emergency Medicine; Family Provider Internal Medicine; PCP Internal Medicine
DX: B34.9 Viral infection, unspecified (principal); R11.0 Nausea
CPT/HCPCS: 36415; 84703; 99283

== ENCOUNTER → 2019-09-25 08:41 | Outpatient (CLI) | payer MEDICAID, SELFPAY ==
[2019-09-25 09:32] LABS: hCG Titer Quant., Serum 480 mIU/mL (1-3)
== END ==
PROVIDERS: Family Provider Internal Medicine; PCP Internal Medicine; Referring Provider Obstetrics & Gynecology; Visit Provider Obstetrics & Gynecology
DX: N91.2 Amenorrhea, unspecified (principal)
CPT/HCPCS: 36415; 84702

== ENCOUNTER → 2019-10-31 12:24 | Outpatient (CLI) | payer MEDICAID, SELFPAY ==
--- NOTE | 2019-10-31 | EMB_PTH ---
PATIENT: IDA IQBAL LOC: [facility]#:[id number] AGE/SX: 44/F ROOM: RE10/31/[address]: Dr. Kirti Sweeney MD : 1980 BED: DIS: SPEC #: [id number] RECD: 10/31/19 12:33 STATUS: ROSA SALVATORE #: [id number] TANYA: 10/31/19 00:[address]: Kirti Sweeney DEPT: SURGICAL PATHOLOGY RECD BY: Addie Morales ENTERED: 10/31/19 13:49 SP TYPE: ENDOM BX/C MIKAEL DR: Dr. Tal Story MD Tissues: Endometrium, NOS Procedures: Surgery Specimen Level IV HEADER OPERATION: Not noted PRE-OP DIAGNOSIS: Complete TISSUE SUBMITTED: Endometrial tissue MICROSCOPIC DIAGNOSIS Endometrial tissue: Fragments of inflamed decidual tissue and blood clots. Scant fragment of benign endometrial tissue. See comment. SJ:yanick 11/01/19 COMMENT Villi are not identified. The entire specimen is examined. This case is discussed with Dr. Sweeney on 11/01/19. MICROSCOPIC DESCRIPTION Slides are reviewed. GROSS DESCRIPTION Received is one container labeled with the patient's name and not further designated. The specimen consists of multiple fragments of hemorrhagic soft tissue that in aggregate measure 4 x 4 x 0.7 cm. tissue is not identified. The entire specimen is submitted in four cassettes. / SJ:rg 10/31/19 TC:5 CPT: 15652
[2019-10-31 11:48] VITALS: BMI 33.5
[2019-10-31 12:55] LABS: Absolute Lymphocyte Count 2.47 X10^3/uL (0.83-4.51); Absolute Neutrophil Count 3.7 X10^3/uL (2.0-7.7); Basophil# 0.02 X10^3/uL; Basophil% 0.3 % (0-1); Eosinophil# 0.11 X10^3/uL; Eosinophils% 1.6 % (0-5); Hemoglobin 10.3 g/dL (12.0-15.0); Lymphocyte # 2.47 X10^3/ul (4.0); Lymphocyte % 36.2 % (19-41); Mean Corp Hgb Conc 32.2 g/dL (32-36); Mean Corpuscular Hgb 28.8 pg (27.0-32.0); Mean Corpuscular Volume 89.4 fL (81-99); Mean Platelet Vol. 9.3 fl (6.2-12.0); Monocyte# 0.54 X10^3/uL; Monocyte% 7.9 % (0-10); NRBC Flagged by Analyzer 0 % (0-5); Neutrophil # 3.67 X10^3/uL (2.7-7.7); Neutrophil % 53.7 % (47-70); Platelet Count 257 K/mm3 (150-450); RBC Distribution Width CV 12.9 % (11.6-14.6); RBC Distribution Width SD 42.2 fl (35.1-43.9); Red Blood Count 3.58 M/mm3 (4.2-5.4); White Blood Count 6.8 K/mm3 (4.4-11.0)
[2019-10-31 13:27] LABS: hCG Titer Quant., Serum 1201 mIU/mL (1-3)
== END ==
PROVIDERS: Family Provider Internal Medicine; PCP Internal Medicine; Referring Provider Obstetrics & Gynecology; Visit Provider Obstetrics & Gynecology
DX: O03.9 Complete or unspecified spontaneous abortion without complication (principal)
CPT/HCPCS: 36415; 84702; 85025; 88305

== ENCOUNTER → 2019-11-02 15:23 | Outpatient (CLI) | payer MEDICAID, SELFPAY ==
[2019-10-31 11:48] VITALS: BMI 33.5
[2019-11-02 16:55] LABS: hCG Titer Quant., Serum 553 mIU/mL (1-3)
== END ==
PROVIDERS: Family Provider Internal Medicine; PCP Internal Medicine; Referring Provider Obstetrics & Gynecology; Visit Provider Obstetrics & Gynecology
DX: O03.9 Complete or unspecified spontaneous abortion without complication (principal)
CPT/HCPCS: 36415; 84702

== ENCOUNTER → 2020-10-03 15:29 | Outpatient (CLI) | payer MEDICAID, SELFPAY ==
[2019-10-31 11:48] VITALS: BMI 33.5
[2020-10-03 17:00] LABS: hCG Titer Quant., Serum 2778 mIU/mL (1-3)
== END ==
PROVIDERS: PCP Internal Medicine; Visit Provider Obstetrics & Gynecology
DX: O20.0 Threatened abortion (principal)
CPT/HCPCS: 36415; 84702

== ENCOUNTER → 2020-10-06 09:22 | Outpatient (CLI) | payer MEDICAID, SELFPAY ==
[2019-10-31 11:48] VITALS: BMI 33.5
[2020-10-06 10:43] LABS: hCG Titer Quant., Serum 6302 mIU/mL (1-3)
== END ==
PROVIDERS: PCP Internal Medicine; Referring Provider Obstetrics & Gynecology; Visit Provider Obstetrics & Gynecology
DX: O20.0 Threatened abortion (principal)
CPT/HCPCS: 36415; 84702

== ENCOUNTER → 2020-10-13 12:57 | Outpatient (CLI) | payer MEDICAID, SELFPAY ==
[2019-10-31 11:48] VITALS: BMI 33.5
--- NOTE | 2020-10-13 13:00 | US_ITS ---
STUDY: FIRST TRIMESTER OBSTETRICAL ULTRASOUND REASON FOR EXAM: Female, 40 years old VIABILITY, LMP 08/27/20. HCG DRAWN 10/06/20- 8312 TECHNIQUE: Transvaginal TECHNICAL QUALITY: Adequate. PRIOR ULTRASOUND: None. FINDINGS: There is visualization of a single gestational sac in a normal intrauterine position. The mean sac diameter (MSD) measures 2.1 cm, indicating an estimated gestational age (EGA) of 7 weeks, 0 days. The gestational sac shape is within normal limits. There is hypoechoic avascular heterogeneous echotexture most consistent with subchorionic hemorrhage of moderate degree. There is a visualized yolk sac. The yolk sac measures 0.3 cm. The placenta is non-visualized. There is visualization of a live embryo. The crown-rump length (CRL) measures 0.49 cm, indicating an estimated gestational age (EGA) of 6 weeks, 2 days. There is demonstrated cardiac activity with a heart rate of 132 bpm. The estimated gestation age (EGA) by LMP is 6 weeks, 5 days. The estimated date of delivery (SERAFIN) by LMP is 06/03/2021. The estimated gestation age (EGA) by US is 6 weeks, 4 days. The estimated date of delivery (SERAFIN) by US is 06/04/2021. The uterus measures 12 x 8.5 x 7.2 cm. There is a hypoechoic 2.9 x 3.5 x 3.3 cm lower uterine fibroid. The cervix is closed. There are nabothian cysts The right ovary measures 3 x 2.3 x 4 cm. There is no right ovarian cyst. There is no visualized right adnexal mass or complex lesion. The left ovary measures 3 x 1.7 x 1.8 cm. There is no left ovarian cyst. There is no visualized left adnexal mass or complex lesion. There is no fluid in the cul de sac. There is color flow to both ovaries. US/Init OB < 14Wks US IMPRESSION: Live intrauterine 6 weeks 4 day gestation with an SERAFIN of 06/04/2021. Subchorionic hemorrhage. No adnexal masses, large pelvic fluid or ovarian torsion. Uterine fibroid and nabothian cysts as incidental findings. No adnexal masses, large pelvic fluid or ovarian torsion. Electronically Signed: Adenike Prabhakar MD at 6:51 EST , Service support ,
== END ==
PROVIDERS: PCP Internal Medicine; Referring Provider Obstetrics & Gynecology; Visit Provider Obstetrics & Gynecology
DX: O09.90 Supervision of high risk pregnancy, unspecified, unspecified trimester (principal); Z3A.00 Weeks of gestation of pregnancy not specified
CPT/HCPCS: 76801

== ENCOUNTER → 2020-10-23 | Outpatient (CLI) | payer MEDICAID, SELFPAY ==
[2020-10-23 09:54] VITALS: BMI 38.5
[2020-10-23 13:32] LABS: Amphetamine Urine VISTA NEGATIVE (<1000 ng/mL); Barbiturate Urine VISTA NEGATIVE (< 200 ng/mL); Benzodiazepine Urine VISTA NEGATIVE (< 200 ng/mL); Cocaine Urine VISTA NEGATIVE (< 300 ng/mL); Ecstacy Urine VISTA NEGATIVE (< 500 ng/mL); Methadone Urine VISTA NEGATIVE (< 300 ng/mL); PCP Urine VISTA NEGATIVE (< 25 ng/mL); THC Urine VISTA NEGATIVE (< 50 ng/mL); Vista UDS pH Range 6
[2020-10-23 18:15] LABS: Chlamydia Trachomatis by PCR Negative (Negative); Neisserai gonorrhoeae by PCR Negative (Negative)
[2020-10-23 18:16] LABS: Probe Check PASS; Sample Adequacy Control PASS; Specimen Processing Control PASS
[2020-10-29 08:48] LABS: HPV APTIMA, High Risk Positive (Negative)
== END | disposition home or self-care (01) ==
LOC: LABSPEC 12:38
PROVIDERS: PCP Internal Medicine; Referring Provider Obstetrics & Gynecology; Visit Provider Obstetrics & Gynecology
DX: O09.90 Supervision of high risk pregnancy, unspecified, unspecified trimester (principal); Z12.4 Encounter for screening for malignant neoplasm of cervix; Z3A.00 Weeks of gestation of pregnancy not specified
CPT/HCPCS: 80307; 87086; 87088; 87491; 87591; 87624; 88175; G0145

== ENCOUNTER → 2020-10-28 10:22 | Outpatient (CLI) | payer MEDICAID, SELFPAY ==
[2020-10-23 09:54] VITALS: BMI 38.5
[2020-10-28 10:53] LABS: Absolute Lymphocyte Count 2.14 X10^3/uL (0.83-4.51); Basophil# 0.01 X10^3/uL; Basophil% 0.1 % (0-1); Eosinophil# 0.06 X10^3/uL; Eosinophils% 0.8 % (0-5); Hematocrit 33.3 % (37-47); Hemoglobin 10.4 g/dL (12.0-15.0); Lymphocyte # 2.14 X10^3/ul (4.0); Lymphocyte % 28.2 % (19-41); Mean Corp Hgb Conc 31.2 g/dL (32-36); Mean Corpuscular Hgb 23.2 pg (27.0-32.0); Mean Corpuscular Volume 74.3 fL (81-99); Mean Platelet Vol. 9.7 fl (6.2-12.0); Monocyte# 0.42 X10^3/uL; Monocyte% 5.5 % (0-10); NRBC Flagged by Analyzer 0 % (0-5); Neutrophil # 4.95 X10^3/uL (2.7-7.7); Neutrophil % 65.1 % (47-70); Platelet Count 336 K/mm3 (150-450); RBC Distribution Width CV 17.4 % (11.6-14.6); RBC Distribution Width SD 46.6 fl (35.1-43.9); Red Blood Count 4.48 M/mm3 (4.2-5.4); White Blood Count 7.6 K/mm3 (4.4-11.0)
[2020-10-28 11:41] LABS: Glucose Challenge Gest 1H 50g 136 mg/dL (70-140)
[2020-10-28 12:18] LABS: HIV - WCH Non-Reactive (Nonreactive); Hepatitis B Surface Antigen Non-Reactive (Nonreactive); Hepatitis C Antibody Non-Reactive (Nonreactive); Rubella IgG Reactive (Nonreactive)
[2020-10-30 01:36] LABS: Rapid Plasmin Reagin (RPR) NONREACTIVE (NONREACTIVE)
== END ==
PROVIDERS: PCP Internal Medicine; Referring Provider Obstetrics & Gynecology; Visit Provider Obstetrics & Gynecology
DX: O99.210 Obesity complicating pregnancy, unspecified trimester (principal); O09.90 Supervision of high risk pregnancy, unspecified, unspecified trimester; Z3A.00 Weeks of gestation of pregnancy not specified
CPT/HCPCS: 36415; 82950; 85025; 86592; 86703; 86762; 86803; 86850; 86900; 86901; 87340

== ENCOUNTER → 2020-10-29 09:53 | Outpatient (CLI) | payer MEDICAID, SELFPAY ==
[2020-10-23 09:54] VITALS: BMI 38.5
[2020-10-29 10:42] LABS: Glucose GTT-Gestation. Fasting 92 mg/dL (<105)
[2020-10-29 12:51] LABS: Glucose GTT-Gestational 1 Hr 137 mg/dL (<190)
[2020-10-29 13:11] LABS: Glucose GTT-Gestational 2 Hr 123 mg/dL (<165)
[2020-10-29 13:59] LABS: Glucose GTT-Gestational 3 Hr 119 L (<145)
== END ==
PROVIDERS: PCP Internal Medicine; Referring Provider Obstetrics & Gynecology; Visit Provider Obstetrics & Gynecology
DX: O99.810 Abnormal glucose complicating pregnancy (principal); Z3A.00 Weeks of gestation of pregnancy not specified
CPT/HCPCS: 36415; 82951; 82952

== ENCOUNTER 2021-02-09 12:20 | Outpatient (CLI) | payer MEDICAID, SELFPAY ==
[2021-02-09] VITALS (80 sets, daily range): BP systolic 128–189; BP diastolic 62–91; PULSE 84–110; RESP 16–20; TEMP 36.7–37.2; O2SAT 92–99; BMI 41.1; BMI 40.7
[2021-02-09 13:00] LABS: Hematocrit 38.4 % (37-47); Hemoglobin 12.7 g/dL (12.0-15.0); Mean Corp Hgb Conc 33.1 g/dL (32-36); Mean Corpuscular Hgb 29.3 pg (27.0-32.0); Mean Corpuscular Volume 88.7 fL (81-99); Mean Platelet Vol. 9.7 fl (6.2-12.0); Platelet Count 223 K/mm3 (150-450); RBC Distribution Width CV 15.7 % (11.6-14.6); RBC Distribution Width SD 49.9 fl (35.1-43.9); Red Blood Count 4.33 M/mm3 (4.2-5.4); White Blood Count 7.5 K/mm3 (4.4-11.0)
[2021-02-09 13:11] LABS: AST(SGOT) 13 U/L (15-37); Alanine Aminotransfer ALT/SGPT 15 U/L (13-56); Creatinine, Serum 0.46 mg/dL (0.55-1.02); EST Glomerular Filtration Rate 160 mL/min (>60); Est Glom Filt Rate - Afr Amer 194 mL/min (>60); Estimated Creatinine Clearance 141.79 ml/min; Uric Acid 2.1 mg/dL (2.6-6.0)
[2021-02-09 13:14] LABS: Protein, Urine (Random) < 6.0 mg/dL (<11.9); Protein:Creat Ratio 198 mg/g CRE (0-200)
[2021-02-09] MEDS: Acetaminophen 500 MG Tablet 1000 MG PO (13:15)
[2021-02-09] MEDS: Metoclopramide 10 MG Tablet PO (15:24)
[2021-02-09] MEDS: NIFEdipine 10 MG Capsule PO (17:05)
[2021-02-09] MEDS: Magnesium Sulfate 4gm/100mL 4 GM/100 ML IV.SOLN. IV (17:30)
--- NOTE | 2021-02-09 17:47 | OB.TRI.NOTE ---
- Problem List (1) Chronic hypertension with superimposed preeclampsia Status: Acute Comment: seen 02/09- severe bps and JASSO, magnesium, transport to [facility] for evaluation. bmz x 1 given, procardia 10 mg IR and 30mgXL given. (2) ASCUS with positive high risk HPV Status: Acute Comment: colposcopy negative. Repeat pap at PP visit (3) Anemia affecting Status: Acute Qualifiers: Comment: iron added. 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 Pap repeated at B. (8) Genital herpes affecting Status: Acute Qualifiers: Comment: Acyclovir starting at 36 weeks (9) H/O pre-eclampsia in prior , currently Status: Acute Comment: baseline labs, baby ASA (10) Depression affecting Status: Acute Comment: currently not on medication (11) H/O LEEP Status: Acute (12) Supervision of high risk , antepartum Status: Acute Comment: PRR SERAFIN 06/03/21 PC: Sherine, Major Spouse: Kenny (13) Status: Acute Qualifiers: Comment: declines genetic and carrier testing; Anatomy scan 01/08/21- follow up scheduled in 2 weeks for additional views of heart, diaphragm and genitals otherwise normal anatomy scan (14) AMA (advanced maternal age) multigravida 35+ Status: Acute Qualifiers: Comment: Declines genetic testing (15) Hypertension Status: Chronic Comment: Diet controlled by PCP. Has never been on medication. baseline labs WNL, plan weekly nst/jareth after 32 weeks, growth q 4 weeks, deliver by 38-39 History of Present Illness Date of Service: 02/09/21 Was patient seen by the physician?: Yes Reason For Visit: PRE E LABS Date of Service: 02/09/21 Final SERAFIN: 06/03/21 Gestational age: 23 Weeks and 5 Days History of Present Illness: 40-year-old at 23 weeks 5 days presents with headache and severely elevated blood pressures. Patient has a history of chronic hypertension that was diet controlled without any medications in the past. She has had headaches increasing over the last couple of weeks and presented for routine visit today in the office and was noted to have severely elevated pressures 160s to 180s over 100s. Patient was evaluated in triage and both urine protein creatinine ratio, CBC, and CMP were within normal limits and headache improved with Tylenol however blood pressures were still in the severely elevated range and therefore she was started on Procardia and magnesium sulfate. Allergies iodine Allergy (Verified 02/09/21 11:20) Hives - Pertinent Past Medical History Medical History: Past Medical History (Last Reviewed 02/09/21 @ 11:20 by Shreya Rosen) Thyromegaly (Acute) HPV test positive (Acute) 2018. Pap repeated at [facility]. Depression affecting (Acute) currently not on medication Hypertension (Chronic) Diet controlled by PCP. Has never been on medication. baseline labs WNL, plan weekly nst/jareth after 32 weeks, growth q 4 weeks, deliver by 38-39 Family history of trisomy 18 Low grade squamous intraepithelial lesion (LGSIL) (Resolved) 2016 Low grade squamous intraepithelial lesion (LGSIL) (Resolved) Surgical History: Past Surgical History (Last Reviewed 02/09/21 @ 11:20 by Shreya Rosen) H/O LEEP (Acute) H/O dilation and curettage H/O hernia repair Laboratory Studies: Laboratory Tests 02/09/21 02/09/21 02/09/21 Range/Units 12:45 12:45 12:45 WBC 7.5 (4.4-11.0) K/mm3 RBC 4.33 (4.2-5.4) M/mm3 Hgb 12.7 (12.0-15.0) g/dL Hct 38.4 (37-47) % MCV 88.7 (81-99) fL MCH 29.3 (27.0-32.0) pg MCHC 33.1 (32-36) g/dL RDW Std Deviation 49.9 H (35.1-43.9) fl RDW Coeff of [place] 15.7 H (11.6-14.6) % Plt Count 223 (150-450) K/mm3 MPV 9.7 (6.2-12.0) fl Creatinine 0.46 L (0.55-1.02) mg/dL Estim Creat Clear Calc 141.79 ml/min Est GFR (MDRD) Af Amer 194 (>60) mL/min Est GFR (MDRD) Non-Af 160 (>60) mL/min Uric Acid 2.1 L (2.6-6.0) mg/dL AST 13 L (15-37) U/L ALT 15 (13-56) U/L U Random Total Protein < 6.0 (<11.9) mg/dL Urine Creatinine 28.30 (NO RANGE EST.) mg/dL Protein/Creatinin Ratio 198 (0-200) mg/g CRE Review of Systems Constitutional: Denies: Fever, Malaise Eyes: Reports: Vision Change. Denies: Blurred vision HEENT: Reports: Head Aches. Denies: Visual Changes Cardiovascular: Denies: Chest Pain, Palpitations Respiratory: Denies: Cough, Shortness of Breath, Wheezing Gastrointestinal: Denies: Abdominal Pain, Diarrhea, Nausea, Vomiting Genitourinary: Denies: Dysuria, Hematuria Musculoskeletal: Denies: Joint Pain, Muscle pain Skin: Denies: Lesions, Rash Neurological: Denies: Blurred vision, Focal weakness, Headaches Psychiatric: Denies: Anxiety, Depression Endocrine: Denies: Heat/ Cold Intolerance Hematologic/ Lymphatic: Denies: Easy Bruising, Easy Bleeding Physical Exam Vitals: Vital Signs Temp Pulse Resp BP Pulse Ox 99.0 F 101 H 20 H 163/91 H 99 02/09/21 17:34 02/09/21 17:45 02/09/21 17:30 02/09/21 17:39 02/09/21 17:45 General: Alert, Cooperative, No apparent distress HEENT: Atraumatic, Normocephalic. Negative for: Thyromegaly, Lymphadenopathy Cardiovascular: Regular rate Lungs: Normal air movement Abdomen: Soft, Non Tender, Gravid Neurological: Deep Tendon Reflexes 2+/4 and Symmetrical, Neuro grossly intact. 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 Negative for: Vulvar lesions Estimated gestational size: Appropriate for gestational size NST - FHR Rate Baby A Baseline: 150 Variability:: Moderate Accelerations:: 10 x 10 NST Reactive:: Appropriate for gestational age Uterine Activity:: none Impression/Plan 40-year-old at 23 weeks 5 days with chronic hypertension and possible superimposed preeclampsia versus hypertension exacerbation Recommend admitting and transporting to tertiary care facility to the care of [facility]. Procardia 10 mg IR given which controlled blood pressures and therefore maintenance dose of 30 mg XL was started daily. Magnesium sulfate 6 g bolus followed by 2 g an hour given. Celestone 12 mg IM x1 given. Patient stable for transport. Multi Select Codes - Visit Charges Office Visit/Consults: 50785 OV L4 Est
[2021-02-09] MEDS: Magnesium Sulfate 4gm/100mL 2 GM/50 ML IV.SOLN. IV (17:52)
[2021-02-09] MEDS: Lactated Ringers 1,000 ML 30 ML IV (18:00)
[2021-02-09] MEDS: NIFEdipine 30 MG Tablet PO (18:02)
[2021-02-09] MEDS: Magnesium Sulfate 20 GM/500 ML BAG IV (18:07)
[2021-02-09] MEDS: Labetalol (Prefilled) 20 MG/4 ML IV (18:13)
[2021-02-09] MEDS: Betamethasone/Betamethasone 30 MG/5 ML Vial 12 MG IM (18:35)
== END 2021-02-09 20:50 | disposition short-term general hospital (02) ==
LOC: WPOUT 12:31 → WP 12:31
PROVIDERS: PCP Internal Medicine; Referring Provider Obstetrics & Gynecology; Visit Provider Obstetrics & Gynecology
DX: O10.012 Pre-existing essential hypertension complicating pregnancy, second trimester (principal); Z3A.23 23 weeks gestation of pregnancy
CPT/HCPCS: 96365; 96366; 36415; 59025; 59050; 82565; 82570; 84156; 84450; 84460; 84550; 85027; 96372; 99218; J7120; G0378; J0702

== ENCOUNTER → 2021-02-27 06:40 | Outpatient (CLI) | payer MEDICAID, SELFPAY ==
[2021-02-20 09:07] VITALS: BMI 40.7
[2021-02-20 13:55] VITALS: BMI 40.7
[2021-02-27 07:22] LABS: Glucose GTT-Gestation. Fasting 113 mg/dL (<105)
[2021-02-27 08:17] LABS: Absolute Lymphocyte Count 1.72 X10^3/uL (0.83-4.51); Absolute Neutrophil Count 4.8 X10^3/uL (2.0-7.7); Basophil# 0.02 X10^3/uL; Basophil% 0.3 % (0-1); Eosinophil# 0.02 X10^3/uL; Eosinophils% 0.3 % (0-5); Hematocrit 39.1 % (37-47); Hemoglobin 13.1 g/dL (12.0-15.0); Lymphocyte # 1.72 X10^3/ul (0.83-4.51); Lymphocyte % 25.1 % (19-41); Mean Corp Hgb Conc 33.5 g/dL (32-36); Mean Corpuscular Hgb 30.3 pg (27.0-32.0); Mean Corpuscular Volume 90.5 fL (81-99); Mean Platelet Vol. 9.9 fl (6.2-12.0); Monocyte# 0.29 X10^3/uL; Monocyte% 4.2 % (0-10); NRBC Flagged by Analyzer 0 % (0-5); Neutrophil # 4.76 X10^3/uL (2.7-7.7); Neutrophil % 69.7 % (47-70); Platelet Count 229 K/mm3 (150-450); RBC Distribution Width CV 13.4 % (11.6-14.6); RBC Distribution Width SD 44.2 fl (35.1-43.9); Red Blood Count 4.32 M/mm3 (4.2-5.4); White Blood Count 6.8 K/mm3 (4.4-11.0)
[2021-02-27 08:36] LABS: Glucose GTT-Gestational 1 Hr 201 mg/dL (<190)
[2021-02-27 09:41] LABS: Glucose GTT-Gestational 2 Hr 165 mg/dL (<165)
[2021-02-27 11:13] LABS: Glucose GTT-Gestational 3 Hr 144 L (<145)
== END ==
PROVIDERS: PCP Internal Medicine; Referring Provider Obstetrics & Gynecology; Visit Provider Obstetrics & Gynecology
DX: O99.810 Abnormal glucose complicating pregnancy (principal); O99.019 Anemia complicating pregnancy, unspecified trimester; Z3A.00 Weeks of gestation of pregnancy not specified
CPT/HCPCS: 36415; 82951; 82952; 85025

== ENCOUNTER 2021-03-01 13:40 | Outpatient (CLI) | payer MEDICAID, SELFPAY ==
[2021-02-20 13:55] VITALS: BMI 40.7
[2021-03-01] VITALS (7 sets, daily range): BP systolic 125; BP diastolic 78; PULSE 91–102; TEMP 36.9; O2SAT 96–98; BMI 39.6
[2021-03-01 14:49] LABS: Bacteria 0 SEEN /hpf (None Seen); Mucous, Urine 0 SEEN /hpf (<or=2+); Red Blood Cells-Urine 0 SEEN /hpf (0-5); Squamous Epithelial Cells - UA 0 SEEN /hpf (5-10); White Blood Cells 0 SEEN /hpf (0-5)
[2021-03-01 14:57] LABS: Color, Urine Yellow (Yellow); Glucose, Dipstick Normal (Normal); Ketone-Dipstick Negative (Negative); Leukocyte Esterase-Dipstick Negative /ul (Negative); Nitrite-Dipstick Negative (Negative); Occult Blood-Urine 25 /ul (Negative); Protein-Dipstick Negative (Negative); Urine Bilirubin Dipstick Negative (Negative); Urine Clarity Clear (Clear); Urine Urobilinogen Normal (Normal)
--- NOTE | 2021-03-27 16:41 | OB.TRI.PN ---
Progress Notes Progress Note: Patient presents for triage evaluation secondary to cramping. Cervix closed. FHT: Moderate variability reactive no decelerations category I tracing [place]: No Contractions Assessment and plan: Reactive NST, reassuring maternal and status patient discharged to home to follow-up at next visit. See problem list details for additional plan information. Laboratory Studies: Laboratory Tests 03/01/21 Range/Units 14:35 Urine Color Yellow (Yellow) Urine Clarity Clear (Clear) Urine pH 6.0 (5.0 - 8.0) Ur Specific [place] 1.010 (1.002-1.030) Urine Protein Negative (Negative) mg/dl Urine Glucose (UA) Normal (Normal) mg/dl Urine Ketones Negative (Negative) mg/dl Urine Occult Blood 25 H (Negative) /ul Urine Nitrite Negative (Negative) Urine Bilirubin Negative (Negative) mg/dL Urine Urobilinogen Normal (Normal) mg/dl Ur Leukocyte Esterase Negative (Negative) /ul Urine RBC 0 SEEN (0-5) /hpf Urine WBC 0 SEEN (0-5) /hpf Ur Squamous Epith Cells 0 SEEN (5-10) /hpf Urine Bacteria 0 SEEN (None Seen) /hpf Urine Mucus 0 SEEN (<or=2+) /hpf Charges/Coding Procedures Urinary/Genital [id number]: [id number] non-stress test Interp
== END 2021-03-01 15:20 | disposition home or self-care (01) ==
LOC: WPOUT 13:46 → WP 13:46
PROVIDERS: PCP Internal Medicine; Referring Provider Obstetrics & Gynecology; Visit Provider Obstetrics & Gynecology
DX: Z34.90 Encounter for supervision of normal pregnancy, unspecified, unspecified trimester (principal)
CPT/HCPCS: 59050; 81001; 99218; G0378

== ENCOUNTER → 2021-03-06 13:20 | Outpatient (CLI) | payer MEDICAID, SELFPAY ==
[2021-02-09 12:38] VITALS: BMI 40.7
[2021-03-01 13:54] VITALS: BMI 39.6
--- NOTE | 2021-03-06 13:23 | US_ITS ---
STUDY: OBSTETRICAL ULTRASOUND - BIOPHYSICAL PROFILE REASON FOR EXAM: Female, 40 years old hypertension LMP: 08/27/2020. PRIOR ULTRASOUND: None. TECHNIQUE: Transabdominal TECHNICAL QUALITY: Adequate. FINDINGS: There is a single intrauterine fetus. The fetus is in a cephalic presentation. There is demonstrated cardiac activity with a heart rate of 137 bpm. There is a normal amniotic fluid volume. The largest amniotic fluid pocket measures 5 cm. The amniotic fluid index (ANTONIETA) is 15.95 cm. The placenta is fundal in location. There are Grade 0 placental changes. Age by LMP: 27 weeks, 2 days. SERAFIN by LMP: 06/03/2021. Gender: Male BIOPHYSICAL PROFILE: Breathing Movements (FBM): 2 Gross Body Movements (GBM): 2 Tone (FT): 2 Amniotic Fluid Volume (AFV): 2 TOTAL SCORE: 8 / 8 US/Biophysical Prof W/O Non Stres IMPRESSION: Normal biophysical profile of 8/8. Electronically Signed: Virgil Elizabeth MD at 14:21 EDT , Service support ,
== END ==
PROVIDERS: PCP Internal Medicine; Referring Provider Obstetrics & Gynecology; Visit Provider Obstetrics & Gynecology
DX: O11.9 Pre-existing hypertension with pre-eclampsia, unspecified trimester (principal); Z3A.00 Weeks of gestation of pregnancy not specified
CPT/HCPCS: 76819

== ENCOUNTER 2021-03-10 13:00 | Outpatient (RCR) | payer MEDICAID, SELFPAY ==
[2021-02-09 12:38] VITALS: BMI 40.7
[2021-03-01 13:54] VITALS: BMI 39.6
== END 2021-03-23 23:59 ==
LOC: DC 13:00
PROVIDERS: PCP Internal Medicine; Visit Provider Obstetrics & Gynecology
DX: O11.9 Pre-existing hypertension with pre-eclampsia, unspecified trimester (principal); O10.919 Unspecified pre-existing hypertension complicating pregnancy, unspecified trimester; Z3A.00 Weeks of gestation of pregnancy not specified
CPT/HCPCS: 97802

== ENCOUNTER → 2021-03-13 12:26 | Outpatient (CLI) | payer MEDICAID, SELFPAY ==
[2021-02-09 12:38] VITALS: BMI 40.7
[2021-03-13 10:53] VITALS: BMI 39.6
--- NOTE | 2021-03-13 12:27 | US_ITS ---
STUDY: OBSTETRICAL ULTRASOUND - BIOPHYSICAL PROFILE REASON FOR EXAM: Female, 40 years old BPP at 28 weeks LMP: 08/27/2020 PRIOR ULTRASOUND: 03/06/2021 TECHNIQUE: Transabdominal TECHNICAL QUALITY: Adequate. FINDINGS: There is a single intrauterine fetus. The fetus is in a breech presentation. There is demonstrated cardiac activity with a heart rate of 152 bpm. There is a normal amniotic fluid volume. The largest amniotic fluid pocket measures 4.90 cm. The amniotic fluid index (ANTONIETA) is 16.3 cm. The placenta is anterior in location and is not low lying. There are Grade 0 placental changes. Age by LMP: 28 weeks, 2 days. SERAFIN by LMP: 06/03/2021. BIOPHYSICAL PROFILE: Breathing Movements (FBM): 0 Gross Body Movements (GBM): 2 Tone (FT): 2 Amniotic Fluid Volume (AFV): 2 TOTAL SCORE: 6 / 8 US/Biophysical Prof W/O Non Stres IMPRESSION: biophysical profile of 03/31. Electronically Signed: Gio Jain MD at 13:27 EDT , Service support ,
== END ==
PROVIDERS: PCP Internal Medicine; Referring Provider Obstetrics & Gynecology; Visit Provider Obstetrics & Gynecology
DX: O11.9 Pre-existing hypertension with pre-eclampsia, unspecified trimester (principal); Z3A.00 Weeks of gestation of pregnancy not specified
CPT/HCPCS: 76819

== ENCOUNTER → 2021-03-20 12:26 | Outpatient (CLI) | payer MEDICAID, SELFPAY ==
[2021-02-09 12:38] VITALS: BMI 40.7
[2021-03-16 16:19] VITALS: BMI 39.6
--- NOTE | 2021-03-20 12:29 | US_ITS ---
STUDY: OBSTETRICAL ULTRASOUND - BIOPHYSICAL PROFILE REASON FOR EXAM: Female, 40 years old well being -- hypertension LMP: 08/27/2020. PRIOR ULTRASOUND: Comparison is made with prior examination dated 03/13/2021. TECHNIQUE: Transabdominal TECHNICAL QUALITY: Adequate. FINDINGS: There is a single intrauterine fetus. The fetus is in a cephalic presentation. There is demonstrated cardiac activity with a heart rate of 138 bpm. There is a normal amniotic fluid volume. The largest amniotic fluid pocket measures 5.9 cm. The amniotic fluid index (ANTONIETA) is 14.5 cm. The placenta is anterior in location and is not low lying. There are Grade 1 placental changes. Age by LMP: 29 weeks, 2 days. SERAFIN by LMP: 06/03/2021. BIOPHYSICAL PROFILE: Breathing Movements (FBM): 2 Gross Body Movements (GBM): 2 Tone (FT): 2 Amniotic Fluid Volume (AFV): 2 TOTAL SCORE: 8 / 8 US/Biophysical Prof W/O Non Stres IMPRESSION: Normal biophysical profile of 05/31. Electronically Signed: Virgil Elizabeth MD at 13:12 EDT , Service support ,
== END ==
PROVIDERS: PCP Internal Medicine; Referring Provider Obstetrics & Gynecology; Visit Provider Obstetrics & Gynecology
DX: O11.9 Pre-existing hypertension with pre-eclampsia, unspecified trimester (principal); Z3A.00 Weeks of gestation of pregnancy not specified
CPT/HCPCS: 76819

== ENCOUNTER 2021-03-24 16:18 | Outpatient (RCR) | payer MEDICAID, SELFPAY ==
[2021-03-16 16:19] VITALS: BMI 39.6
[2021-03-24 13:12] VITALS: BMI 39.6
== END 2021-03-24 23:59 | disposition home or self-care (01) ==
LOC: DC 16:18
PROVIDERS: PCP Internal Medicine; Visit Provider Obstetrics & Gynecology
DX: O11.9 Pre-existing hypertension with pre-eclampsia, unspecified trimester (principal); Z3A.00 Weeks of gestation of pregnancy not specified

== ENCOUNTER → 2021-03-27 12:23 | Outpatient (CLI) | payer MEDICAID, SELFPAY ==
[2021-02-09 12:38] VITALS: BMI 40.7
[2021-03-24 13:12] VITALS: BMI 39.6
--- NOTE | 2021-03-27 12:25 | US_ITS ---
STUDY: OBSTETRICAL ULTRASOUND - BIOPHYSICAL PROFILE REASON FOR EXAM: Female, 40 years old well being -- GDM GHTN LMP: 08/27/2020. PRIOR ULTRASOUND: Comparison is made with prior study of 03/20/2021. TECHNIQUE: Transabdominal TECHNICAL QUALITY: Adequate. FINDINGS: There is a single intrauterine fetus. The fetus is in a breech presentation. There is demonstrated cardiac activity with a heart rate of 158 bpm. There is a normal amniotic fluid volume. The largest amniotic fluid pocket measures 3.6 cm. The amniotic fluid index (ANTONIETA) is 13 cm. The placenta is anterior in location and is not low lying. There are Grade 1 placental changes. Age by LMP: 30 weeks, 2 days. SERAFIN by LMP: 06/03/2021. BIOPHYSICAL PROFILE: Breathing Movements (FBM): 2 Gross Body Movements (GBM): 2 Tone (FT): 2 Amniotic Fluid Volume (AFV): 2 TOTAL SCORE: 8 / 8 US/Biophysical Prof W/O Non Stres IMPRESSION: Normal biophysical profile of 05/31. Electronically Signed: Virgil Elizabeth MD at 14:23 EDT , Service support ,
== END ==
PROVIDERS: PCP Internal Medicine; Referring Provider Obstetrics & Gynecology; Visit Provider Obstetrics & Gynecology
DX: O11.9 Pre-existing hypertension with pre-eclampsia, unspecified trimester (principal); Z3A.00 Weeks of gestation of pregnancy not specified
CPT/HCPCS: 76819

== ENCOUNTER → 2021-04-10 12:25 | Outpatient (CLI) | payer MEDICAID, SELFPAY ==
[2021-02-09 12:38] VITALS: BMI 40.7
[2021-03-27 14:02] VITALS: BMI 39.6
--- NOTE | 2021-04-10 12:28 | US_ITS ---
STUDY: SECOND AND THIRD TRIMESTER OBSTETRICAL ULTRASOUND REASON FOR EXAM: Female, 40 years old growth , BPP -- GDM GHTN LMP: 08/27/2020. TECHNIQUE: Transabdominal TECHNICAL QUALITY: Adequate. PRIOR ULTRASOUND: Comparison is made with prior study dated 03/27/2021. FINDINGS: There is a single intrauterine fetus. The fetus is in a cephalic presentation. There is demonstrated cardiac activity with a heart rate of 125 bpm. There is a normal amniotic fluid volume. The largest amniotic fluid pocket measures 7.2 cm. The amniotic fluid index (ANTONIETA) is 19.4 cm. The placenta is anterior in location and is not low lying. There are Grade 1 placental changes. The cervix measures 3 cm in length. The adnexal regions are not visualized. BIOMETRY: BPD: 7.9 cm: 31 weeks, 4 days HC: 29.78 cm: 32 weeks, 6 days AC: 28.26 cm: 32 weeks, 2 days FL: 6.39 cm: 32 weeks, 6 days CI: 76% FL/BPD: 81% FL/HC: FL/AC: 23% HC/AC: 1.05 age by current US: 32 weeks, 2 days. SERAFIN by current US: 06/03/2021. Estimated weight: 1989 grams, +/- 2098 grams, 27 %. age by prior US: 32 weeks, 1 days. SERAFIN by prior US: 06/04/2021. Age by LMP: 32 weeks, 2 days. SERAFIN by LMP: 06/03/2021. IMPRESSION: Single live intrauterine gestation with a mean gestational age of 32 weeks and 2 days. Electronically Signed: Virgil Elizabeth MD at 13:31 EDT , Service support , STUDY: OBSTETRICAL ULTRASOUND - BIOPHYSICAL PROFILE REASON FOR EXAM: Female, 40 years old growth , BPP -- GDM GHTN LMP: 08/27/2020. PRIOR ULTRASOUND: Comparison is made with prior examination dated 03/27/2021. TECHNIQUE: Transabdominal TECHNICAL QUALITY: Adequate. FINDINGS: There is a single intrauterine fetus. The fetus is in a cephalic presentation. There is demonstrated cardiac activity with a heart rate of 125 bpm. There is a normal amniotic fluid volume. The largest amniotic fluid pocket measures 7. cm. The amniotic fluid index (ANTONIETA) is 19.4 cm. The placenta is anterior in location and is not low lying. There are Grade 1 placental changes. Age by LMP: 32 weeks, 2 days. SERAFIN by LMP: 06/03/2021. age by prior US: 32 weeks, 2 days. SERAFIN by prior US: 06/03/2021. BIOPHYSICAL PROFILE: Breathing Movements (FBM): 2 Gross Body Movements (GBM): 2 Tone (FT): 2 Amniotic Fluid Volume (AFV): 2 TOTAL SCORE: 8 / 8 US/OB Limited With Biometrics IMPRESSION: Normal biophysical profile of 05/31. Electronically Signed: Virgil Elizabeth MD at 13:32 EDT , Service support ,
--- NOTE | 2021-04-10 12:28 | US_ITS ---
STUDY: SECOND AND THIRD TRIMESTER OBSTETRICAL ULTRASOUND REASON FOR EXAM: Female, 40 years old growth , BPP -- GDM GHTN LMP: 08/27/2020. TECHNIQUE: Transabdominal TECHNICAL QUALITY: Adequate. PRIOR ULTRASOUND: Comparison is made with prior study dated 03/27/2021. FINDINGS: There is a single intrauterine fetus. The fetus is in a cephalic presentation. There is demonstrated cardiac activity with a heart rate of 125 bpm. There is a normal amniotic fluid volume. The largest amniotic fluid pocket measures 7.2 cm. The amniotic fluid index (ANTONIETA) is 19.4 cm. The placenta is anterior in location and is not low lying. There are Grade 1 placental changes. The cervix measures 3 cm in length. The adnexal regions are not visualized. BIOMETRY: BPD: 7.9 cm: 31 weeks, 4 days HC: 29.78 cm: 32 weeks, 6 days AC: 28.26 cm: 32 weeks, 2 days FL: 6.39 cm: 32 weeks, 6 days CI: 76% FL/BPD: 81% FL/HC: FL/AC: 23% HC/AC: 1.05 age by current US: 32 weeks, 2 days. SERAFIN by current US: 06/03/2021. Estimated weight: 1989 grams, +/- 2098 grams, 27 %. age by prior US: 32 weeks, 1 days. SERAFIN by prior US: 06/04/2021. Age by LMP: 32 weeks, 2 days. SERAFIN by LMP: 06/03/2021. IMPRESSION: Single live intrauterine gestation with a mean gestational age of 32 weeks and 2 days. Electronically Signed: Virgil Elizabeth MD at 13:31 EDT , Service support , STUDY: OBSTETRICAL ULTRASOUND - BIOPHYSICAL PROFILE REASON FOR EXAM: Female, 40 years old growth , BPP -- GDM GHTN LMP: 08/27/2020. PRIOR ULTRASOUND: Comparison is made with prior examination dated 03/27/2021. TECHNIQUE: Transabdominal TECHNICAL QUALITY: Adequate. FINDINGS: There is a single intrauterine fetus. The fetus is in a cephalic presentation. There is demonstrated cardiac activity with a heart rate of 125 bpm. There is a normal amniotic fluid volume. The largest amniotic fluid pocket measures 7. cm. The amniotic fluid index (ANTONIETA) is 19.4 cm. The placenta is anterior in location and is not low lying. There are Grade 1 placental changes. Age by LMP: 32 weeks, 2 days. SERAFIN by LMP: 06/03/2021. age by prior US: 32 weeks, 2 days. SERAFIN by prior US: 06/03/2021. BIOPHYSICAL PROFILE: Breathing Movements (FBM): 2 Gross Body Movements (GBM): 2 Tone (FT): 2 Amniotic Fluid Volume (AFV): 2 TOTAL SCORE: 8 / 8 US/Biophysical Prof W/O Non Stres IMPRESSION: Normal biophysical profile of 05/31. Electronically Signed: Virgil Elizabeth MD at 13:32 EDT , Service support ,
== END ==
PROVIDERS: PCP Internal Medicine; Referring Provider Obstetrics & Gynecology; Visit Provider Obstetrics & Gynecology
DX: O11.3 Pre-existing hypertension with pre-eclampsia, third trimester (principal); O09.513 Supervision of elderly primigravida, third trimester; Z3A.32 32 weeks gestation of pregnancy
CPT/HCPCS: 76816; 76819

== ENCOUNTER → 2021-04-17 08:52 | Outpatient (CLI) | payer MEDICAID, SELFPAY ==
[2021-03-27 14:02] VITALS: BMI 39.6
[2021-04-10 13:59] VITALS: BMI 39.6
--- NOTE | 2021-04-17 08:56 | US_ITS ---
STUDY: OBSTETRICAL ULTRASOUND - BIOPHYSICAL PROFILE REASON FOR EXAM: Female, 40 years old. well-being LMP: 08/27/20 PRIOR ULTRASOUND: 04/10/21 TECHNIQUE: Transabdominal ultrasound evaluation was performed. FINDINGS: There is a single intrauterine fetus. The fetus is in a cephalic presentation. There is demonstrated cardiac activity with a heart rate of 141 bpm. There is a normal amniotic fluid volume. The amniotic fluid index (ANTONIETA) is 15.2 cm. The placenta is anterior in location and is not low lying. BIOPHYSICAL PROFILE: Breathing Movements (FBM): 0 Gross Body Movements (GBM): 2 Tone (FT): 2 Amniotic Fluid Volume (AFV): 2 TOTAL SCORE: 6 / 8 US/Biophysical Prof W/O Non Stres IMPRESSION: biophysical profile of 6/8 with no breathing movements observed. Electronically Signed: Jose Berger MD at 17:01 EDT Tel , Service support ,
== END ==
PROVIDERS: PCP Internal Medicine; Referring Provider Obstetrics & Gynecology; Visit Provider Obstetrics & Gynecology
DX: O11.9 Pre-existing hypertension with pre-eclampsia, unspecified trimester (principal); Z3A.00 Weeks of gestation of pregnancy not specified
CPT/HCPCS: 76819

== ENCOUNTER → 2021-04-24 12:04 | Outpatient (CLI) | payer MEDICAID, SELFPAY ==
[2021-03-27 14:02] VITALS: BMI 39.6
[2021-04-24 10:52] VITALS: BMI 39.6
--- NOTE | 2021-04-24 12:35 | US_ITS ---
STUDY: SECOND AND THIRD TRIMESTER OBSTETRICAL ULTRASOUND - LIMITED REASON FOR EXAM: Female, 40 years old ANTONIETA -- 34 weeks ANTONIETA LMP: 08/27/2020 PRIOR ULTRASOUND: Comparison is made with prior study dated 04/17/2021. TECHNIQUE: Transabdominal TECHNICAL QUALITY: Adequate. FINDINGS: There is a single intrauterine fetus. The fetus is in a cephalic presentation. There is demonstrated cardiac activity with a heart rate of 140 bpm. There is a normal amniotic fluid volume. The largest amniotic fluid pocket measures 4.2 cm x 5.4 cm. The amniotic fluid index (ANTONIETA) is 13.5 to cm. The placenta is anterior in location and is not low lying. There are Grade 2 placental changes. The cervix measures 4 cm in length. BIOMETRY: Age by LMP: 34 weeks, 2 days. SERAFIN by LMP: 06/03/2021. age by prior US: 34 weeks, 2 days. SERAFIN by prior US: 06/03/2021. US/OB Limited (No Biometrics) IMPRESSION: Normal amniotic fluid. Electronically Signed: Virgil Elizabeth MD at 14:22 EDT , Service support ,
== END ==
PROVIDERS: PCP Internal Medicine; Referring Provider Obstetrics & Gynecology; Visit Provider Obstetrics & Gynecology
DX: O16.3 Unspecified maternal hypertension, third trimester (principal); Z3A.34 34 weeks gestation of pregnancy
CPT/HCPCS: 76815

== ENCOUNTER → 2021-05-01 12:35 | Outpatient (CLI) | payer MEDICAID, SELFPAY ==
[2021-03-27 14:02] VITALS: BMI 39.6
[2021-05-01 11:02] VITALS: BMI 39.6
--- NOTE | 2021-05-01 12:37 | US_ITS ---
STUDY: SECOND AND THIRD TRIMESTER OBSTETRICAL ULTRASOUND - LIMITED REASON FOR EXAM: Female, 40 years old ANTONIETA LMP: 08/27/2020. PRIOR ULTRASOUND: Comparison is made with prior study dated 04/24/2021. TECHNIQUE: Transabdominal TECHNICAL QUALITY: Adequate. FINDINGS: There is a single intrauterine fetus. The fetus is in a cephalic presentation. There is demonstrated cardiac activity with a heart rate of 140 bpm. There is a normal amniotic fluid volume. The largest amniotic fluid pocket measures 5.9 cm. The amniotic fluid index (ANTONIETA) is 19.5 cm. The placenta is anterior in location and is not low lying. There are Grade 2 placental changes. US/OB Limited (No Biometrics) IMPRESSION: Normal amniotic fluid index. Electronically Signed: Virgil Elizabeth MD at 14:51 EDT , Service support ,
== END ==
PROVIDERS: PCP Internal Medicine; Referring Provider Obstetrics & Gynecology; Visit Provider Obstetrics & Gynecology
DX: I10 Essential (primary) hypertension (principal)
CPT/HCPCS: 76815

== ENCOUNTER → 2021-05-08 12:25 | Outpatient (CLI) | payer MEDICAID, SELFPAY ==
[2021-03-27 14:02] VITALS: BMI 39.6
[2021-05-06 15:32] VITALS: BMI 39.6
--- NOTE | 2021-05-08 12:25 | US_ITS ---
STUDY: SECOND AND THIRD TRIMESTER OBSTETRICAL ULTRASOUND REASON FOR EXAM: Female, 40 years old growth -- 36 weeks LMP: 08/27/2020. TECHNIQUE: Transabdominal TECHNICAL QUALITY: Adequate. PRIOR ULTRASOUND: Comparison is made with prior study dated 05/01/2021. FINDINGS: There is a single intrauterine fetus. The fetus is in a cephalic presentation. There is demonstrated cardiac activity with a heart rate of 147 bpm. There is a normal amniotic fluid volume. The largest amniotic fluid pocket measures 5.2 cm. The amniotic fluid index (ANTONIETA) is 8.3 cm. The placenta is anterior in location and is not low lying. There are Grade 2 placental changes. The cervical length was not measured due to the head positioning. The adnexal regions are not visualized. BIOMETRY: BPD: 8.75 cm: 35 weeks, 2 days HC: 33.28 cm: 37 weeks, 6 days AC: 32.42 cm: 36 weeks, 2 days FL: 7.18 cm: 36 weeks, 5 days CI: 75% FL/BPD: 82% FL/HC: FL/AC: 22% HC/AC: 1.03 age by current US: 36 weeks, 3 days. SERAFIN by current US: 06/02/2021. Estimated weight: 2931 grams, +/- 440 grams, 56 %. age by prior US: 36 weeks, 2 days. SERAFIN by prior US: 06/03/2021. Age by LMP: 30 weeks, 2 days. SERAFIN by LMP: 06/03/2021. US/OB Limited With Biometrics IMPRESSION: Single live uterine gestation with a mean gestational age of 36 weeks and 2 days. The measurements obtained today fall within the normal expected range. Electronically Signed: Virgil Elizabeth MD at 9:16 EDT , Service support ,
== END ==
PROVIDERS: PCP Internal Medicine; Referring Provider Obstetrics & Gynecology; Visit Provider Obstetrics & Gynecology
DX: O16.3 Unspecified maternal hypertension, third trimester (principal); Z3A.36 36 weeks gestation of pregnancy
CPT/HCPCS: 76816; 87077; 87081; 87186

== ENCOUNTER 2021-05-22 06:45 | Inpatient (IN) | payer MEDICAID, SELFPAY ==
[2021-05-15 10:19] VITALS: BMI 39.6
[2021-05-22] VITALS (50 sets, daily range): BP systolic 113–176; BP diastolic 59–95; PULSE 74–254; TEMP 36–36.9; O2SAT 92–100; BMI 39.8
--- NOTE | 2021-05-22 07:15 | HP.PCM.OB_ITS ---
HPI - General General Date of Admission: 05/22/21 HPI Narrative IDA IQBAL, is a 40 F who presents for IOL secondary to cHTN and GDMA2. she denies any bleeding or LOF admits good FM Maternal Data Information SERAFIN Calculator Estimated Delivery Date Method Current WG Current Estimate 06/03/21 LMP (Certain) 38w 2d PFSH PFSH Medical History Depression affecting Family history of trisomy 18 HPV test positive Hypertension Low grade squamous intraepithelial lesion (LGSIL) Low grade squamous intraepithelial lesion (LGSIL) Positive GBS test Thyromegaly Home Medications vitamin#30 30 mg iron-10 mg iron-folic acid 1 mg-omg3 capsule 1 cap PO DAILY 10/31/19 [History Last Taken 03/01/21] Flucelvax Quad 2607-0866 (PF) 60 mcg (15 mcg x 4)/0.5 mL IM syringe 0.5 ml IM ONCE #0.5 ml NS 11/18/20 [Clinic Last Taken Unknown] aspirin 03/01/21 [History Last Taken 03/01/21 06:00] nifedipine 30 mg tablet,extended release 24 hr 30 mg PO DAILY #30 tab 03/13/21 [Rx Last Taken Unknown] blood-glucose meter #1 ea 03/16/21 [History Last Taken Unknown] lancets 30 gauge #100 ea 03/16/21 [History Last Taken Unknown] pen needle, diabetic 32 gauge x 5/32 #50 ea 03/16/21 [Rx Last Taken Unknown] blood sugar diagnostic #150 ea 03/22/21 [Rx Last Taken Unknown] insulin detemir U-100 100 unit/mL (3 mL) subcutaneous pen 34 unit SUBCUT QHS ml 04/10/21 [History Last Taken Unknown] famotidine 20 mg tablet 20 mg PO QHS #60 tab 04/28/21 [Rx Last Taken Unknown] Allergy/AdvReac Type Severity Reaction Status Date / Time iodine Allergy Hives Verified 05/01/21 11:02 Family History Unknown Diabetes Surgical History H/O dilation and curettage H/O hernia repair H/O LEEP Social History adopted: No household members: family number of children: 2 current occupational status: employed 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 Date Name GA/Weeks Outcome Route Bth Weight Infant Gen Labor Lgth Anesthesia Del Locatn Provider FOB Unknown 2007 Tayshaun 39 live - full term Male 12 hours epidural [facility] Unknown 2015 Major 40 live - full term 6lbs 12oz Male 12 hours epidural [facility] Unknown 09/2018- SAB Unknown 10/2019- SAB Unknown 02/2019 12 [facility] Delivery Date: Racquel Malloy Delivery Date: Racquel Malloy Delivery Date: Blighted Ovum Racquel Rose Delivery Date: No notes to display Delivery Date: Trisomy 18- suction dilation and curettage Racquel Rose Visit Details Expected Delivery Route/Plan plan IOL at 38 weeks with SM 05/22 Labor Preferences- CB/BF classes: [] labor support person: [] labor intervention preferences: [] pain management options preferred: [] cut cord/dad catch: [] : [] PP control planned: nexplanon in hospital discussed possible routes of delivery and associated risks: [] special requests: [] Plans flu vaccine: given tdap vaccine: [] rhogam: [] LARC form signed: 02/20 movement and labor precautions reviewed. Problem list reviewed and updated with the most current plan of care details and appropriate orders placed. Relevant counseling for the gestational age provided. Continue routine care and follow up unless otherwise noted in visit n otes/problem list details OB Flowsheet Initial Weight: Not Recorded Date -?-?-?-?-?-?-?-?-?-?-?--?- EGA Weight BP Urine Prot -?-?-?-?-?-?-?-?-?-?-?-?- Glucose FHR FuHt Pres Dilation -?-?-?-?-?-?-?-?-?-?-?-?- Effaced St Visit Note 10/23/20 -?-?-?-?-?-?-?-?-?-?-?-?- 8w 1d 224 lb 2 oz 158/90 -?-?-?-?-?-?-?-?-?-?-?-?- 160 -?-?-?-?-?-?-?-?-?-?-?-?- GP - CRL 18mm co nsistent with LMP. 11/18/20 -?-?-?-?-?-?-?-?-?-?-?-?- 11w 6d 229 lb 130/90 Negative -?-?-?-?-?-?-?-?-?-?-?-?- Negative 160 -?-?-?-?-?-?-?-?-?-?-?-?- SM- no vb crampi ng 12/17/20 -?-?-?-?-?-?-?-?-?-?-?-?- 16w 0d 228 lb 134/86 Negative -?-?-?-?-?-?-?-?-?-?-?-?- Negative 150 -?-?-?-?-?-?-?-?-?-?-?-?- GP - no cramping or bleeding. +FM. Anatomy scan scheduled 12/29. 01/15/21 -?-?-?-?-?-?-?-?-?-?-?-?- 20w 1d 234 lb 142/90 Negative -?-?-?-?-?-?-?-?-?-?-?-?- Negative 150 -?-?-?-?-?-?-?-?-?-?-?-?- GP - no cramping or bleeding. Colpo done today. 02/09/21 -?-?-?-?-?-?-?-?-?-?-?-?- 23w 5d 239 lb 4 oz 140/92 Nega tive -?-?-?-?-?-?-?-?-?-?-?-?- Negative 155 -?-?-?-?-?-?-?-?-?-?-?-?- GP - no ctx, LOF , VB, DFM. BP elevated. Reports headaches occurring every day and seeing spots in vision. Sent to triage for evaluation. 02/20/21 -?-?-?-?-?-?-?-?-?-?-?-?- 25w 2d 231 lb 120/70 Negative -?-?-?-?-?-?-?-?-?-?-?-?- Negative -?-?-?-?-?-?-?-?-?-?-?-?- 03/13/21 -?-?-?-?-?-?-?-?-?-?-?-?- 28w 2d 233 lb 120/90 Negative -?-?-?-?-?-?-?-?-?-?-?-?- Negative 140 28 -?-?-?-?-?-?-?-?-?-?-?-?- SM- check BS and fu with dr mitchell. no vb lof bps stable. no reg ctx good fm 03/24/21 -?-?-?-?-?-?-?-?-?-?-?-?- 29w 6d 229 lb 126/72 Trace -?-?-?-?-?-?-?-?-?-?-?-?- Negative 151 -?-?-?-?-?-?-?-?-?-?-?-?- -Work in for h jose like raised rash on arms, thighs abdomen since last pm. Used new lotion. Benadryl not helpful. Will try claritan and go to PCP if persists. 03/27/21 -?-?-?-?-?-?-?-?-?-?-?-?- 30w 2d 232 lb 124/82 Negative -?-?-?-?-?-?-?-?-?-?-?-?- Negative 140 30 -?-?-?-?-?-?-?-?-?-?-?-?- GP - no LOF, VB, DFM, ctx. Oneil's sister last week - coping well 04/10/21 -?-?-?-?-?-?-?-?-?-?-?-?- 32w 2d 230 lb 138/84 -?-?-?-?-?-?-?-?-?-?-?-?- 140 -?-?-?-?-?-?-?-?-?-?-?-?- SM- no vb lof go od fm no regular ctx discussed IOL at 38 weeks 04/17/21 -?--?-?-?-?-?-?-?-?-?-?-?- 33w 2d 233 lb 4 oz 122/70 Nega tive -?-?-?-?-?-?-?-?-?-?-?-?- Negative 140 -?-?-?-?-?-?-?-?-?-?-?-?- GP - NST only. R eactive. 04/24/21 -?-?-?-?-?-?-?-?-?-?-?-?- 34w 2d 233 lb 112/70 Negative -?-?-?-?-?-?-?-?-?-?-?-?- Negative 140 -?-?-?-?-?-?-?-?-?-?-?-?- SM- no vb lof go od cm no regualr ctx, continuing to increase celestone 04/29/21 -?-?-?-?-?-?-?-?-?-?-?-?- 35w 0d 233 lb 130/78 Negative -?-?-?-?-?-?-?-?-?-?-?-?- Negative 140 Cephalic 0 -?-?-?-?-?-?-?-?-?-?-?-?- GP - NST reactiv e. Having pelvic pressure. Cervix checked and was closed. GP - No reg ctx, LOF, VB. DF M earlier - now resolved. NST reactive. Having pelvic pressure. Cervix checked and was closed. 05/01/21 -?-?-?-?-?-?-?-?-?-?-?-?- 35w 2d 231 lb 8 oz 120/72 -?--?-?-?-?-?-?-?-?-?-?-?- 140 -?-?-?-?-?-?-?-?-?-?-?-?- GP - NST only. R eactive. 05/06/21 -?-?-?-?-?-?-?-?-?-?-?-?- 36w 0d 234 lb -?-?-?-?-?-?-?-?-?-?-?-?- 140 -?-?-?-?-?-?-?-?-?-?-?-?- GP - NST only. R eactive. 05/08/21 -?-?-?-?-?-?-?-?-?-?-?-?- 36w 2d 135 lb 110/76 -?-?-?-?-?-?-?-?-?-?-?-?- 130 36 Cephalic 1 -?-?-?-?-?-?-?-?-?-?-?-?- 50 -3 GP - no LO F, VB, DFM, ctx. Discussed scheduling IOL at next visit. NST r eactive. 05/13/21 -?-?-?-?-?-?-?-?-?-?-?-?- 37w 0d 230 lb 110/72 Negative -?-?-?-?-?-?-?-?-?-?-?-?- Negative 140 -?-?-?-?-?-?-?-?-?-?-?-?- MH-reactive NST only 05/15/21 -?-?-?-?-?-?-?-?-?-?-?-?- 37w 2d 230 lb -?-?-?-?-?-?-?-?-?-?-?-?- -?-?-?-?-?-?-?-?-?-?-?-?- SM- no vb lof go od fm no regular ctx plan IOL 38 weeks 05/22/21 -?-?-?-?-?-?-?-?-?-?-?-?- 38w 2d -?-?-?-?-?-?-?-?-?-?-?-?- -?-?-?-?-?-?-?-?-?-?-?-?- NST FHR Rate Baby A Baseline: 130 Variability:: Moderate Accelerations:: 15 x 15 Decelerations:: None NST Reactive:: Yes FHR Category:: Category I Uterine Activity:: irregular ROS Constitutional Constitutional: Reports systems reviewed and no addt'l complaints, except as documented Eyes Eyes: Denies change in vision ENT HEENT: Reports systems reviewed and no addt'l complaints, except as documented; Denies headache(s) Cardiovascular Cardiovascular: Reports systems reviewed and no addt'l complaints, except as documented; Denies chest pain or dyspnea Respiratory/Chest Respiratory/Chest: Reports systems reviewed and no addt'l complaints, except as documented Gastrointestinal Gastrointestinal: Reports systems reviewed and no addt'l complaints, except as documented; Denies abdominal pain Genitourinary Genitourinary: Reports systems reviewed and no addt'l complaints, except as documented, contractions Details: present (irregular) and movement Details: present; Denies dysuria or genital lesions Musculoskeletal Musculoskeletal: Reports systems reviewed and no addt'l complaints, except as documented Neurologic Neurologic: Reports systems reviewed and no addt'l complaints, except as documented Endocrine Endocrinology: Reports systems reviewed and no addt'l complaints, except as documented Vital Signs Vital Signs Vital Signs: Weight Body Mass Index (BMI) 39.6 Physical Exam Const alert, oriented x3, no apparent distress and healthy appearing HEENT normocephalic and moist oral mucous membranes Head and Scalp: atraumatic Neck full ROM, no lymphadenopathy, supple and thyroid normal General: trachea midline Lymph Lymphatic: no lymphadenopathy noted Chest inspection of chest normal Resp normal respiratory effort Cardio regular rate GI normal to inspection, nondistended, normoactive bowel sounds, soft to palpation and non-tender Inspection: gravid external exam normal Manual OB Exam: estimated gestational size appropriate, presentation cephalic, dilated, effaced and station Extremity normal to inspection General Extremity: Negative for edema Skin no rashes or lesions noted Neuro no focal motor deficits and deep tendon reflexes 2+ bilaterally Motor Exam: strength 5/5 throughout and clonus absent Psych mental status grossly normal Labs Labs Labs: Blood Type B POSITIVE Antibody Screen NEGATIVE Hct 39.1 % (37-47) Hgb 13.1 g/dL (12.0-15.0) Obstetrics US Rubella IgG Antibody Reactive (Nonreactive) Hep Bs Antigen Non-Reactive (Nonreactive) HIV 1&2 Antibody Non-Reactive (Nonreactive) C.trachomatis DNA (PCR) Negative (Negative) Glucose 1 Hr 50 gm 136 mg/dL (70-140) Rhogam given: No Miscellaneous Test Assessment & Plan (1) Hypertension: COMMENT: Diet controlled by PCP. Has never been on medication. baseline labs WNL, plan weekly nst/jareth after 32 weeks, growth q 4 weeks, deliver by 38-39 (2) AMA (advanced maternal age) multigravida 35+: COMMENT: Declines genetic testing (3) : QUALIFIERS: Weeks of gestation: 37 weeks Qualified Code(s): Z3A.37 - 37 weeks gestation of COMMENT: declines genetic and carrier testing; Anatomy scan 01/08/21- follow up scheduled in 2 weeks for additional views of heart, diaphragm and genitals otherwise normal anatomy scan (4) Supervision of high risk , antepartum: COMMENT: PRR SERAFIN 06/03/21 PC: Sherine, Major Spouse: Kenny (5) Depression affecting : COMMENT: currently not on medication (6) Genital herpes affecting : QUALIFIERS: Trimester: third trimester Qualified Code(s): O98.313 - Other infections with a predominantly sexual mode of transmission complicating , third trimester; A60.09 - Herpesviral infection of other urogenital tract COMMENT: Acyclovir starting at 36 weeks (7) HPV test positive: COMMENT: 2019. Pap repeated at NOB. 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 (11) ASCUS with positive high risk HPV: COMMENT: colposcopy negative. Repeat pap at PP visit (12) Chronic hypertension with superimposed preeclampsia: COMMENT: seen 02/09- severe bps and JASSO, magnesium, transport to [facility] for evaluation. bmz x 1 given, procardia 10 mg IR and 30mgXL given. (13) Gestational diabetes mellitus (GDM) affecting , antepartum: (14) Positive GBS test: PLAN: Patient presents IOL, plan management for with pitocin/AROM and FB Pain management: plans epidural. GBS pos- PCN in labor. Management of any complications: none I have reviewed the PFSH and made any clinically relevant updates.
[2021-05-22] MEDS: 0.9% Normal Saline Single 100 ML IV.SOLN. INTRA-UTER (07:43)
[2021-05-22] MEDS: Lactated Ringers 1,000 ML 50 ML IV (07:50)
[2021-05-22 08:12] LABS: Absolute Lymphocyte Count 1.82 X10^3/uL (0.83-4.51); Absolute Neutrophil Count 3.9 X10^3/uL (2.0-7.7); Basophil# 0.02 X10^3/uL; Basophil% 0.3 % (0-1); Eosinophil# 0.04 X10^3/uL; Eosinophils% 0.6 % (0-5); Hematocrit 36.4 % (37-47); Hemoglobin 12.3 g/dL (12.0-15.0); Lymphocyte # 1.82 X10^3/ul (0.83-4.51); Lymphocyte % 28.7 % (19-41); Mean Corp Hgb Conc 33.8 g/dL (32-36); Mean Corpuscular Hgb 30.7 pg (27.0-32.0); Mean Corpuscular Volume 90.8 fL (81-99); Mean Platelet Vol. 10.4 fl (6.2-12.0); Monocyte# 0.56 X10^3/uL; Monocyte% 8.8 % (0-10); NRBC Flagged by Analyzer 0 % (0-5); Neutrophil # 3.87 X10^3/uL (2.7-7.7); Neutrophil % 61.1 % (47-70); Platelet Count 186 K/mm3 (150-450); RBC Distribution Width CV 14.2 % (11.6-14.6); RBC Distribution Width SD 47.1 fl (35.1-43.9); Red Blood Count 4.01 M/mm3 (4.2-5.4); White Blood Count 6.3 K/mm3 (4.4-11.0)
[2021-05-22] MEDS: Oxytocin 30 units/NS 500 ml 30 UNITS/500 ML IV.SOLN IV (08:33)
[2021-05-22 08:40] LABS: Bedside Glucose 112 mg/dL (70-110)
[2021-05-22 09:41] LABS: Bedside Glucose 100 mg/dL (70-110)
[2021-05-22 10:36] LABS: Bedside Glucose 89 mg/dL (70-110)
[2021-05-22] MEDS: Penicillin G 3,000,000 Units 50 ML 100 UNITS IV ×3 (12:32→20:45)
[2021-05-22] MEDS: Lactated Ringers 500 ML 999 ML IV (12:35)
[2021-05-22] MEDS: fentaNYL-bupivacaine (epidural) 100 ML BAG EPIDURAL ×3 (13:33→22:39)
[2021-05-22 14:40] LABS: Bedside Glucose 73 mg/dL (70-110)
[2021-05-22] MEDS: Lactated Ringers 1,000 ML 200 ML IV ×2 (15:02→20:28)
--- NOTE | 2021-05-22 17:17 | PCM.PN.BLA ---
Progress Note Status post Morfin bulb expulsion, epidural placed. current tracing: FHT: 130 Moderate variability reactive occasional early decelerations category I tracing [place]: Every 3 minutes contractions reviewed tracing abnormalities since last note: Occasional early A/P: Continue Pitocin per protocol, AROM clear fluid and internal monitors placed now 560-2 mid position
[2021-05-22 18:31] LABS: Bedside Glucose 67 mg/dL (70-110)
[2021-05-22 18:31] LABS: Bedside Glucose 58 mg/dL (70-110)
[2021-05-22 18:40] LABS: Bedside Glucose 80 mg/dL (70-110)
[2021-05-22 19:36] LABS: Bedside Glucose 87 mg/dL (70-110)
[2021-05-22] MEDS: Mag Hydrox/Al Hydrox/Simeth 30 ML UDC PO (19:40)
[2021-05-22 21:11] LABS: Bedside Glucose 71 mg/dL (70-110)
[2021-05-22 21:40] LABS: Bedside Glucose 73 mg/dL (70-110)
[2021-05-22 22:45] LABS: Bedside Glucose 71 mg/dL (70-110)
[2021-05-22 23:46] LABS: Bedside Glucose 72 mg/dL (70-110)
[2021-05-23] VITALS (24 sets, daily range): BP systolic 119–142; BP diastolic 57–96; PULSE 85–100; RESP 16–17; TEMP 36.1–37.7; O2SAT 99–100
[2021-05-23] MEDS: 0.9% Saline Lock 10 ML Syringe IV (00:40)
[2021-05-23] MEDS: Ondansetron 4 MG/2 ML Vial IV (00:40)
[2021-05-23 00:41] LABS: Bedside Glucose 76 mg/dL (70-110)
[2021-05-23] MEDS: Penicillin G 3,000,000 Units 50 ML 100 UNITS IV (00:57)
[2021-05-23] MEDS: Lactated Ringers 1,000 ML 200 ML IV (01:36)
[2021-05-23 02:01] LABS: Bedside Glucose 87 mg/dL (70-110)
[2021-05-23 03:06] LABS: Bedside Glucose 85 mg/dL (70-110)
[2021-05-23] MEDS: fentaNYL-bupivacaine (epidural) 100 ML BAG EPIDURAL (03:50)
[2021-05-23 04:01] LABS: Bedside Glucose 85 mg/dL (70-110)
[2021-05-23 04:56] LABS: Bedside Glucose 81 mg/dL (70-110)
[2021-05-23 06:01] LABS: Bedside Glucose 84 mg/dL (70-110)
[2021-05-23] MEDS: Oxytocin 30 units/NS 500 ml 30 UNITS/500 ML IV.SOLN 334 UNITS IV (06:55)
[2021-05-23 07:25] LABS: Bedside Glucose 71 mg/dL (70-110)
--- NOTE | 2021-05-23 09:49 | EX.PCM.OBRPT ---
Assessment & Plan (1) Genital herpes affecting : QUALIFIERS: Trimester: third trimester Qualified Code(s): O98.313 - Other infections with a predominantly sexual mode of transmission complicating , third trimester; A60.09 - Herpesviral infection of other urogenital tract COMMENT: Acyclovir starting at 36 weeks (2) HPV test positive: COMMENT: 2019. Pap repeated at NOB. (3) Trisomy 18 in child of prior , currently : COMMENT: 02/2019 (4) Chronic hypertension with superimposed preeclampsia: COMMENT: seen 02/09- severe bps and JASSO, magnesium, transport to [facility] for evaluation. bmz x 1 given, procardia 10 mg IR and 30mgXL given. (5) Gestational diabetes mellitus (GDM) affecting , antepartum: (6) Positive GBS test: (7) Depression affecting : COMMENT: currently not on medication (8) Supervision of high risk , antepartum: COMMENT: PRR SERAFIN 06/03/21 PC: Sherine, Major Spouse: Kenny (9) : QUALIFIERS: Weeks of gestation: 37 weeks Qualified Code(s): Z3A.37 - 37 weeks gestation of COMMENT: declines genetic and carrier testing; Anatomy scan 01/08/21- follow up scheduled in 2 weeks for additional views of heart, diaphragm and genitals otherwise normal anatomy scan (10) AMA (advanced maternal age) multigravida 35+: COMMENT: Declines genetic testing (11) Hypertension: COMMENT: Diet controlled by PCP. Has never been on medication. baseline labs WNL, plan weekly nst/jareth after 32 weeks, growth q 4 weeks, deliver by 38-39 Maternal Data Information SERAFIN Calculator Estimated Delivery Date Method Current WG Current Estimate 06/03/21 LMP (Certain) 38w 3d Vaginal Delivery Operative Information Date of Procedure: 05/23/21 Pre-Operative Diagnosis: IOL chtn gdma2 Post-Operative Diagnosis: same Surgery / Procedure Performed: Spontaneous Vaginal Delivery Type of Anesthesia: Epidural Special Medications: none Estimated Blood Loss: 100 Fluids Replaced: crystalloid Findings Description of Procedure: Patient began pushing and delivered the head in the CHRISTOPHER presentation. The head was delivered atraumatically and a tight nuchal cord x2 was identified and easily reduced over the infant's head. The anterior and posterior shoulders delivered without complication followed by the rest of the infant and the was placed on the maternal abdomen. Delayed cord clamping was employed for approximately 60 seconds. Cord was clamped and cut and gentle traction was applied to the cord and the placenta delivered spontaneously immediately following it was noted to be intact with three-vessel cord. The perineum and vagina were inspected and noted to have no laceration. EBL was 100 cc. Patient and tolerated delivery well. Presentation: CHRISTOPHER Amniotic Membrane Rupture Type: Artificial Amniotic Fluid Description: Clear Placental Delivery Description: Spontaneous Placenta Disposition: [facility] Cord Vessel Description: 3 Vessels Cord Entanglement: Around neck x 2, tight A Gender: Male Delayed Cord Clamping: Yes Post Vaginal Delivery Medications Given After Delivery: IV Pitocin Episiotomy Description: None Laceration: None Complication Complications: None Procedures Urinary/Genital [id number]: [id number] Vaginal Delivery+ Care([facility])
--- NOTE | 2021-05-23 09:53 | PCM.DC ---
Discharge Instructions Diet Discharge Diet: No restrictions Activity Discharge Activity: Return to Normal Activity, May Not Drive (while taking narcotic pain medications.) and May Shower May resume sexual activity in: 4-6 weeks Dressing / Incision Call your doctor if your incision/area has: Continuous Slow Oozing, Sudden Increased Bleeding, Increased Pain/ Swelling, Increased Redness and Foul Smelling Discharge Follow Up Care Please Follow Up With: Kirti Sweeney MD When: Call [phone] to make an appointment with your doctor in 6 weeks. If you had elevated blood pressure or 4th degree laceration, you will need to be seen in 2 weeks. Test Results: Test results from this visit will be discussed in further detail at your follow-up appointment, if applicable. Discharge Plan Admission Admit Date/Time: 05/22/21 06:45 Attending Provider: Kirti Sweeney Primary Care Provider: Tal Story Discharge Orders/Prescriptions Prescriptions: No Action vitamin#30 30 mg iron-10 mg iron-folic acid 1 mg-omg3 capsule 30 mg iron-10 mg iron-1 mg capsule 1 cap PO DAILY RF: 0 Flucelvax Quad (PF) 60 mcg (15 mcg x 4)/0.5 mL syringe 0.5 ml IM ONCE Qty: 0.5 RF: 0 Levemir FlexTouch U-100 Insuln 100 unit/mL (3 mL) insulin pen 60 unit subcut QHS RF: 0 (DME) blood-glucose meter Misc See Rx Instructions ea .ROUTE .MEDSUPPLY Qty: 1 RF: 0 (DME) lancets 30 gauge misc See Rx Instructions ea .ROUTE .MEDSUPPLY Qty: 100 RF: 0 (DME) pen needle, diabetic [BD Ultra-Fine Jeannie Pen Needle] 32 gauge x 5/32 needle See Rx Instructions .ROUTE .MEDSUPPLY Qty: 50 RF: 2 aspirin 81 mg tablet,chewable 81 mg PO DAILY RF: 0 (DME) OneTouch Ultra Blue Test Strip Strip See Rx Instructions .ROUTE .MEDSUPPLY RF: 0 famotidine [Pepcid] 20 mg tablet 20 mg PO QHS RF: 0 nifedipine 30 mg tablet extended release 24hr 30 mg PO DAILY RF: 0
[2021-05-23] MEDS: Naproxen 500 MG Tablet PO (17:38)
--- NOTE | 2021-05-23 18:54 | CASEMGMT ---
Addendum entered by Radhika Allred 05/23/21 21:31: SW provided patient with 10 myths about depression and anxiety, Babies need their own space, Handout about on line resource for post anxiety and depression, Handout on phone number for post anxiety and depression, counseling agency and handout on depression during and after . Radhika Allred MSW AVELINA Original Note: SW Note: Consult Source: RN Reason for Consult: History of depression SW met with patient and introduced self. Patient was bottle feeding the . She appeared to be appropriately bonding with and voiced that she was in labor for 24 hours but I am glad he is here. During this introduction patient's significant other came into the room and SW asked patient if it was ok to speak in front of the significant other and she said yes. Mom: Raymond Romero G6 P now 3 Delivered at 38 +3 weeks PNC: Dr. Grubbs Control: Tubual Ligation : Guy GERARDO 05/23/21 Apgars 7 and 9 Weight 3170 grams Pediatrican: Dr. Banda Combination of breast and formula. Mother said that the breast feeding did not go well but we will keep trying. Mother's Other children: Boy age 12 and Boy age 5 Housing: Patient reports that her and the kids reside in an apartment. FOB said that he stops in everyday. Transportation: Patient reports she has a vehicle and is able to drive Supplies: Carseat, bassinet, crib, clothes and diapers. Patient said that she has all the supplies. Kelsyn said as soon as i found out i was having a boy I started getting stuff and putting it in an extra room in the basement. Supports: Patient said that the FOB, Sriram, will help with the . Patient said that her mom and sister live 5 minutes away. Education Level: Patient has her GED and reports no learning issues. 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 Patient said that she plans to take 12 weeks off. She said that when she returns to work she and the child's father, Sriram, will take turns caring for the . Patient said that she works 2nd shift and the FOB works 3rd/1st shift. Agency Involvement: [employer] [place], WIC and no other community resources or agency involvement FOB: Sriram Time Together: 8 years Involved at : CANDI said that he will be involved with . He appeared to be actively interested in the and how well he was eating while this ticket writer was in the room. Employment: CANDI works at [employer] as a electro mechanical engineer. He reports he works 3rd and 1st shift. He reports he works lots of hours. CANDI reports he has 2 older children (one in and one going to college) and 2 younger children that reside in the [facility]. CANDI reports that he has ongoing contact with his younger children FOB MH/AOD/Domestic Violence History: FOB denied any history Maternal MH History: Patient reports that she had post depression when her 12 year old was born. Patient said I was a first time mom, lived with mom and it was just the circumstances. Patient said that she was put on meds but I didn't like how they made me feel and discontinued the meds herself. Patient said that she also had depression after her miscarriage in 2018. Patient said that she has educated herself on Post depression and feels fine now. SW educated patient on post depression and then asked patient if that was consistent with what she had educated herself about and she said yes. SW advised patient of the symptoms of post depression. AOD History: Patient denied any history of AOD use Plan: N/B home with patient. OLIVIA updated RN. OLIVIA updated board that patient and were cleared for discharge. Radhika QUAN
[2021-05-24] VITALS: BP 116/61; PULSE 79; RESP 16; TEMP 35.9
[2021-05-24 04:00] VITALS: BP 111/58; PULSE 72; RESP 16; TEMP 36.1
[2021-05-24] MEDS: Naproxen 500 MG Tablet PO (06:10)
[2021-05-24 06:11] LABS: Bedside Glucose 118 mg/dL (70-110)
--- NOTE | 2021-05-24 06:50 | PCM.PN.OB ---
Subjective Subjective Patient doing well without complaints. Tolerating PO. Ambulating and voiding without difficulty. feeding well. Denies chest pain, shortness of breath, calf pain/swelling, fevers, chills, lightheadedness. Objective Data Objective Data Vital Signs: Vital Signs Temp Pulse Resp BP Pulse Ox 96.9 F L 72 16 111/58 L 100 05/24/21 04:00 05/24/21 04:00 05/24/21 04:00 05/24/21 04:00 05/23/21 07:02 Oxygen Delivery Method Room Air Weight: 232 lb Body Mass Index (BMI) 39.8 Intake & Output: Intake and Output for Last 24 Hours 05/22/21 05/23/21 05/24/21 23:59 23:59 23:59 Intake Total 4239.32 / 4239.32 2683.90 / 2683.90 Output Total 2049 / 2049 2150 / 2150 Balance 2189.32 / 2189.32 533.90 / 533.90 Lab / Micro Data Result Diagrams: 05/22/21 07:50 Labs: Laboratory Results - last 24 hr 05/23/21 06:35: POC Glucose 71 05/24/21 06:04: POC Glucose 118 H Micro: Microbiology 05/22/21 12:20 Mucosa - Nose SARS-CoV-2 Antigen (Rapid) - Final ROS Constitutional Constitutional: Reports systems reviewed and no addt'l complaints, except as documented Cardiovascular Cardiovascular: Reports systems reviewed and no addt'l complaints, except as documented Respiratory/Chest Respiratory/Chest: Reports systems reviewed and no addt'l complaints, except as documented Gastrointestinal Gastrointestinal: Reports systems reviewed and no addt'l complaints, except as documented Physical Exam Const alert, oriented x3 and no apparent distress HEENT Head and Scalp: atraumatic Resp normal respiratory effort GI soft to palpation and non-tender Bimanual Exam - Vag & Uterus: uterus non-tender Uterus Palpation: uterus fundus firm (below Umbilicus) Assessment & Plan (1) Vaginal delivery: (2) Gestational diabetes mellitus (GDM) affecting , antepartum: (3) Chronic hypertension with superimposed preeclampsia: COMMENT: seen 02/09- severe bps and JASSO, magnesium, transport to [facility] for evaluation. bmz x 1 given, procardia 10 mg IR and 30mgXL given. PLAN: s/p PPD # 1 1. routine post delivery care 2. breast feeding- support given 3. rh positive 4. rubella immune
[2021-05-24 08:18] VITALS: BP 127/73; PULSE 89; RESP 16; TEMP 36.8; O2SAT 100
[2021-05-24] MEDS: Acetaminophen 500 MG Tablet 1000 MG PO (11:37)
[2021-05-24 11:39] VITALS: BP 125/83; PULSE 70; RESP 16; TEMP 36.4; O2SAT 100
== END 2021-05-24 12:55 | disposition home or self-care (01) | DRG 560 ==
PROVIDERS: Admitting Provider Obstetrics & Gynecology; PCP Internal Medicine; Referring Provider Obstetrics & Gynecology; Visit Provider Obstetrics & Gynecology
DX: O24.424 Gestational diabetes mellitus in childbirth, insulin controlled (principal); O10.92 Unspecified pre-existing hypertension complicating childbirth; O98.82 Other maternal infectious and parasitic diseases complicating childbirth; B95.1 Streptococcus, group B, as the cause of diseases classified elsewhere; O69.1XX0 Labor and delivery complicated by cord around neck, with compression, not applicable or unspecified; O76 Abnormality in fetal heart rate and rhythm complicating labor and delivery; Z3A.38 38 weeks gestation of pregnancy; Z37.0 Single live birth
CPT/HCPCS: 59025; 59050; 82962; 85025; 86850; 86900; 86901; 87426; 99218; J7120; A4216; G0378; J2405

== ENCOUNTER 2021-09-25 20:52 | Emergency (ER) | payer MEDICAID, SELFPAY ==
[2021-09-25 20:53] VITALS: BP 137/96; PULSE 83; RESP 16; TEMP 35.9; O2SAT 100; BMI 36.0
[2021-09-25 20:55] VITALS: BP 137/96; PULSE 83; RESP 16; TEMP 35.9; O2SAT 100
--- NOTE | 2021-09-25 21:25 | RAD_ITS ---
HISTORY: COUGH EXAMINATION/TECHNIQUE: XR Chest 1 View: 1 view COMPARISON: None FINDINGS: LINES/DEVICES: None. LUNGS: No consolidation, edema or effusion. No pneumothorax. MEDIASTINUM AND CARDIOVASCULAR STRUCTURES: Cardiac silhouette not enlarged. Central airways and mediastinal contour are unremarkable. BONES AND SOFT TISSUES: No acute bony abnormalities. RAD/Chest 1 View IMPRESSION: No radiographic evidence of acute cardiopulmonary disease. at 2141 Reported and signed by: Loco Ferris MD Electronically Signed: Loco Ferris MD at 21:40 EST Tel , Service support ,
--- NOTE | 2021-09-25 23:08 | EX.ED.DYSGE1 ---
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 She states that she is exposed to multiple residents as well as coworkers and does report that recently coworkers have been sick with Covid. She states she is not vaccinated. She reports in the last 1 to 2 days she has developed subjective fevers and chills with cough and shortness of breath. She states with concern she has developed the infection she presents for evaluation [facility] Medical History (Updated 09/25/21 @ 23:[address] 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) Positive GBS test Thyromegaly Home Medications vitamin#30 30 mg iron-10 mg iron-folic acid 1 mg-omg3 capsule 1 cap PO DAILY 10/31/19 [History Last Taken 05/22/21 08:00] Flucelvax Quad (PF) 60 mcg (15 mcg x 4)/0.5 mL IM syringe 0.5 ml IM ONCE #0.5 ml NS 11/18/20 [Clinic Last Taken Unknown] aspirin 81 mg PO DAILY 03/01/21 [History Last Taken 05/21/21 08:00] blood-glucose meter #1 ea 03/16/21 [History Last Taken Unknown] lancets 30 gauge #100 ea 03/16/21 [History Last Taken Unknown] pen needle, diabetic 32 gauge x 5/32 #50 ea 03/16/21 [Rx Last Taken Unknown] insulin detemir U-100 100 unit/mL (3 mL) subcutaneous pen 60 unit SUBCUT QHS ml 04/10/21 [History Last Taken 05/21/21 20:00] blood sugar diagnostic [OneTouch Ultra Blue Test Strip] 05/22/21 [History Last Taken Unknown] famotidine [Pepcid] 20 mg PO QHS 05/22/21 [History Last Taken 05/21/21 20:00] nifedipine 30 mg PO DAILY 05/22/21 [History Last Taken 05/21/21 20:00] dexamethasone [Decadron] 6 mg PO DAILY 10 Days #10 tab 09/25/21 [Rx Last Taken Unknown] promethazine-codeine 5 ml PO Q6H PRN 7 Days #140 ml 09/25/21 [Rx Last Taken Unknown] Allergy/AdvReac Type Severity Reaction Status Date / Time iodine Allergy Hives Verified 09/25/21 20:56 Family History (Updated 05/22/21 @ 08:19 by Scot Ward) Unknown Diabetes Surgical History (Updated 05/24/21 @ 06:[address] 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 [employer] Smoking Status: Never smoker alcohol intake: never substance use type: does not use caffeine: Yes what type of physical activity do you participate in: walking seatbelt use: always do you feel safe at home: Yes additional social history: - Kenny BURT ROS ED Constitutional Constitutional ED: Reports chills and fever(s) ENT ENT ED: Reports rhinorrhea and sore throat Cardiovascular Cardiovascular: Denies chest pain Respiratory/Chest Respiratory/Chest: Reports cough and dyspnea Gastrointestinal Gastrointestinal: Reports nausea; Denies abdominal pain, diarrhea or vomiting Genitourinary Genitourinary ED: Denies dysuria Musculoskeletal Musculoskeletal: Reports myalgias Integumentary Denies rash Neurologic Neurologic: Denies headache(s) Hematologic/Lymphatic Hematologic/Lymphatic: Denies easy bleeding or easy bruising EXAM Physical Exam Const Vital Signs: 09/25/21 20:53 09/25/21 20:55 09/25/21 23:42 Temperature 96.7 F L 96.7 F L 96 F L Temperature Source Temporal Temporal Pulse Rate 83 83 89 Respiratory Rate 16 16 18 Blood Pressure 137/96 H 137/96 H Blood Pressure Mean 109 109 Pulse Ox 100 100 Oxygen Delivery Method Room Air Room Air Positive well nourished and well developed General Appearance ED: well developed HEENT Reports moist mucous membranes HEENT Narrative: Cobblestoning the posterior pharynx consistent with sinus drainage but no airway edema or compromise Eyes PERRL and EOMs intact bilaterally Neck supple and no JVD Neck Narrative: Positive anterior cervical lymphadenopathy Resp normal respiratory effort Resp Narrative: Breath sounds are slight diminished with faint rhonchi in the bilateral bases but no signs of distress Cardio regular rate and regular rhythm GI normal to inspection, nondistended, normoactive bowel sounds, non-tender, non-distended and no masses Auscultation: normoactive bowel sounds Palpation: soft Extremity normal to inspection Extremity Narrative: No asymmetric edema no pitting edema negative Homans' sign bilaterally Neuro oriented x3 and CN's II-XII intact bilaterally Sensorium / Orientation: alert Motor Exam: strength 5/5 throughout Psych mental status grossly normal Skin no rashes or lesions noted MDM MDM MDM Narrative Medical decision making narrative: Patient presented to the ER afebrile and satting 100% on room air. She also had no physical exam findings concerning for respiratory distress. Her constellation of symptoms is concerning for Covid so a chest x-ray and Covid swab were ordered. Chest x-ray revealed no acute lung pathology. Covid test however is positive. At this time she is in no respiratory distress and she is not hypoxic and therefore does not need to be placed in the hospital and otherwise can be given symptomatic medications and discharged home Radiography Diagnostic Testing: Clinical Impression(s) from Imaging Studies Chest X-Ray 09/25/21 21:25 IMPRESSION: No radiographic evidence of acute cardiopulmonary disease. at 2141 Reported and signed by: Loco Ferris MD Electronically Signed: Loco Ferris MD at 21:40 EST Tel , Service support , Discharge Plan Triage Chief Complaint: Cough ED Provider: Rashid Gomez Dx/Rx/DC Orders Clinical Impression: COVID-19 Instructions: Coronavirus Disease 2019 (COVID-19): Caring for Yourself or Others Prescriptions: New dexamethasone [Decadron] 6 mg tablet 6 mg PO DAILY 10 Days Qty: 10 RF: 0 promethazine-codeine 6.25-10 mg/5 mL syrup 5 ml PO Q6H PRN (Reason: cough) 7 Days Qty: 140 RF: 0 No Action vitamin#30 30 mg iron-10 mg iron-folic acid 1 mg-omg3 capsule 30 mg iron-10 mg iron-1 mg capsule 1 cap PO DAILY RF: 0 Flucelvax Quad (PF) 60 mcg (15 mcg x 4)/0.5 mL syringe 0.5 ml IM ONCE Qty: 0.5 RF: 0 Levemir FlexTouch U-100 Insuln 100 unit/mL (3 mL) insulin pen 60 unit subcut QHS RF: 0 (DME) blood-glucose meter Misc See Rx Instructions ea .ROUTE .MEDSUPPLY Qty: 1 RF: 0 (DME) lancets 30 gauge misc See Rx Instructions ea .ROUTE .MEDSUPPLY Qty: 100 RF: 0 (DME) pen needle, diabetic [BD Ultra-Fine Jeannie Pen Needle] 32 gauge x 5/32 needle See Rx Instructions .ROUTE .MEDSUPPLY Qty: 50 RF: 2 aspirin 81 mg tablet,chewable 81 mg PO DAILY RF: 0 (DME) OneTouch Ultra Blue Test Strip Strip See Rx Instructions .ROUTE .MEDSUPPLY RF: 0 famotidine [Pepcid] 20 mg tablet 20 mg PO QHS RF: 0 nifedipine 30 mg tablet extended release 24hr 30 mg PO DAILY RF: 0 Stand Alone Forms: ED Work / School Excuse Primary Care Provider: Tal Story Referrals: Tal Story MD [Primary Care Provider] - Disposition Disposition: Home, Self Care Discharge Date/Time: 09/25/21 23:43
[2021-09-25 23:42] VITALS: PULSE 89; RESP 18; TEMP 35.5
== END 2021-09-25 23:43 | disposition home or self-care (01) ==
PROVIDERS: Emergency Provider Emergency Medicine; PCP Internal Medicine
DX: U07.1 COVID-19 (principal); I10 Essential (primary) hypertension; Z79.899 Other long term (current) drug therapy
CPT/HCPCS: 71045; 87426; 99282

== ENCOUNTER 2022-09-17 21:10 | Emergency (ER) | payer MEDICAID, SELFPAY ==
[2022-09-17 21:11] VITALS: BP 165/108; PULSE 81; RESP 18; TEMP 35.8; O2SAT 100; BMI 37.8
--- NOTE | 2022-09-17 21:18 | EDS_ITS ---
HPI History of Present Illness Chief Complaint: Dental Detail of Chief Complaint: Done pain Informant: patient Onset/Context/Timing Onset: Days Context: Sudden Onset Timing: Continuous Quality: Pain Location: Upper front teeth Current Severity: Mild Maximum Severity: Moderate Worsened by: Chewing, air, cold Relieved by: NSAIDs Associated Symptoms Assocated Symptom - Dental: cold sensitivity; Negative for fever, jaw swelling, face swelling or hot sensitivity Narrative Narrative: Patient is a 41-year-old woman with type 1 diabetes who presents with dental pain. She has dental appointment for 24 October. She is able to open and close her mouth completely there is no change in voice. She denies a traumatic fever, heart murmur, mitral valve prolapse, SBE or being immune suppressed. She denies facial swelling or rash. 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) Positive GBS test Thyromegaly Home Medications vitamin#30 30 mg iron-10 mg iron-folic acid 1 mg-omg3 capsule 1 cap PO DAILY 10/31/19 [History Last Taken 05/22/21 08:00] Flucelvax Quad [id number] (PF) 60 mcg (15 mcg x 4)/0.5 mL IM syringe (flu vac qs 2019(4 yr up)CD(PF)) 0.5 ml IM ONCE #0.5 mL 11/18/20 [Clinic Last Taken Unknown] aspirin 81 mg chewable tablet 81 mg PO DAILY htn 03/01/21 [History Last Taken 05/21/21 08:00] blood-glucose meter #1 ea 03/16/21 [History Last Taken Unknown] lancets 30 gauge #100 ea 03/16/21 [History Last Taken Unknown] pen needle, diabetic 32 gauge x 5/32 (BD Ultra-Fine Jeannie Pen Needle) #50 ea 03/16/21 [Rx Last Taken Unknown] insulin detemir U-100 100 unit/mL (3 mL) subcutaneous pen (Levemir FlexTouch U- 100 Insulin) 60 unit subcut QHS gdm 04/10/21 [History Last Taken 05/21/21 20:00] famotidine 20 mg tablet (Pepcid) 20 mg PO QHS indegestion 05/22/21 [History Last Taken 05/21/21 20:00] nifedipine 30 mg tablet,extended release 24 hr 30 mg PO DAILY ghtn 05/22/21 [History Last Taken 05/21/21 20:00] dexamethasone 6 mg tablet (Decadron) 6 mg PO DAILY 10 days #10 tabs 09/25/21 [Rx Last Taken Unknown] promethazine 6.25 mg-codeine 10 mg/5 mL syrup 5 ml PO Q6H PRN cough 7 days #140 mL 09/25/21 [Rx Last Taken Unknown] blood sugar diagnostic #100 ea 01/26/22 [Rx Last Taken Unknown] hydrocodone-acetaminophen 5-325mg 5mg-325mg 1 tab PO Q6H PRN PRN Pain 3 days #10 TABLETS 09/17/22 [Rx Last Taken Unknown] penicillin V potassium 500 mg tablet 500 mg PO 4X/DAY #40 tabs 09/17/22 [Rx Last Taken Unknown] Allergy/AdvReac Type Severity Reaction Status Date / Time iodine Allergy Hives Verified 09/25/21 20:56 Family History Unknown Diabetes Surgical History H/O dilation and curettage H/O hernia repair H/O LEEP Social History adopted: No household members: family number of children: 2 current occupational status: employed 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 [employer] Smoking Status: Never smoker alcohol intake: never substance use type: does not use caffeine: Yes what type of physical activity do you participate in: walking seatbelt use: always do you feel safe at home: Yes additional social history: - Kenny JAVED ROS ED Constitutional Constitutional ED: Denies chills, fever(s), subjective, sweats or weight loss Eyes Eyes: Denies blurry vision or change in vision ENT ENT ED: Denies ear pain, rhinorrhea or sore throat Cardiovascular Cardiovascular: Denies chest pain or palpitations Respiratory/Chest Respiratory/Chest: Denies cough or dyspnea Gastrointestinal Gastrointestinal: Denies nausea or vomiting Musculoskeletal Musculoskeletal: Denies arthralgias, back pain, myalgias or neck pain Integumentary Denies abscess, Abrasions or rash Hematologic/Lymphatic Hematologic/Lymphatic: Denies easy bleeding or easy bruising Allergic/Immunologic Allergic/Immunologic ED: Denies mouth swelling, tongue swelling or urticaria EXAM Physical Exam Const Vital Signs: 09/17/22 21:11 Temperature 96.4 F L Temperature Source Temporal Pulse Rate 81 Respiratory Rate 18 Blood Pressure 165/108 H Blood Pressure Mean 127 Pulse Ox 100 Oxygen Delivery Method Room Air Positive well nourished, well developed and obese General Appearance ED: well developed and NAD Nutritional Appearance: obese HEENT HEENT Narrative: Atraumatic normocephalic. Ears normal. Nares patent. Tooth #4 through #10 have dental decay to the pulp. There is evidence of peridental disease as well as gingivitis. There is no facial swelling. There is no facial cellulitis. There is no trismus. Negative for trauma Face and Sinus: Negative for sinuses nontender Mouth ED: Yes lips normal, Yes tongue normal, Yes salivary gland normal, No mouth trauma and No oral and palatal mucosa abnormal Mouth: lips normal, tongue normal, salivary gland normal, No mouth trauma and No oral and palatal mucosa abnormal Teeth and Gingiva: abnormal tooth and associated gingiva, caries, gingiva abnormal, poor dentition and teeth discoloration Throat: posterior oropharynx normal Eyes PERRL and EOMs intact bilaterally General Eye ED: Negative for pale conjunctiva or scleral icterus Neck no lymphadenopathy, supple and no JVD General: normal visual inspection; Negative for anterior neck swelling, tenderness or submandibular swelling Lymph Lymphatic: no lymphadenopathy noted Resp normal respiratory effort, no retractions and clear to auscultation bilaterally Cardio regular rate, regular rhythm, S1 normal heart sound, S2 normal heart sound and no murmurs Neuro oriented x3, CN's II-XII intact bilaterally and moves all extremities Psych mental status grossly normal Skin no rashes or lesions noted and no wounds MDM MDM MDM Narrative Medical decision making narrative: Patient clinically has symptomatic reversible pulpitis. There is also significant dental caries with presumed apical abscess. Patient was and said He opened analgesia and antibiotic. Discharge Plan Triage Chief Complaint: Dental ED Provider: Justino Junior Dx/Rx/DC Orders Clinical Impression: Abscess, apical, Dental caries extending into pulp, Generalized gingivitis on reduced periodontium in non-periodontitis patient, Symptomatic reversible pulpitis Instructions: ED Dental Pain, ED Tooth Abscess Prescriptions: New hydrocodone-acetaminophen [hydrocodone-acetaminophen] 5-325 mg tablet 1 tab PO Q6H PRN PRN (Reason: Pain) 3 Days Qty: 10 0RF penicillin V potassium 500 mg tablet 500 mg PO 4X/DAY Qty: 40 0RF No Action vitamin#30 30 mg iron-10 mg iron-folic acid 1 mg-omg3 capsule 30 mg iron-10 mg iron-1 mg capsule 1 cap PO DAILY Flucelvax Quad [id number] (PF) 60 mcg (15 mcg x 4)/0.5 mL syringe 0.5 ml IM ONCE Qty: 0.5 0RF Levemir FlexTouch U-100 Insuln 100 unit/mL (3 mL) insulin pen 60 unit subcut QHS (DME) blood-glucose meter Misc See Rx Instructions .ROUTE .MEDSUPPLY Qty: 1 Rx Instructions: As directed (DME) lancets 30 gauge misc See Rx Instructions .ROUTE .MEDSUPPLY Qty: 100 Label Comments: 1 EACH BY DOES NOT APPLY ROUTE 4 TIMES DAILY Rx Instructions: As directed (DME) pen needle, diabetic [BD Ultra-Fine Jeannie Pen Needle] 32 gauge x 5/32 needle See Rx Instructions .ROUTE .MEDSUPPLY Qty: 50 2RF Rx Instructions: As directed aspirin 81 mg tablet,chewable 81 mg PO DAILY Label Comments: TAKE 1 TABLET BY MOUTH DAILY famotidine [Pepcid] 20 mg tablet 20 mg PO QHS nifedipine 30 mg tablet extended release 24hr 30 mg PO DAILY dexamethasone [Decadron] 6 mg tablet 6 mg PO DAILY 10 Days Qty: 10 0RF promethazine-codeine 6.25-10 mg/5 mL syrup 5 ml PO Q6H PRN (Reason: cough) 7 Days Qty: 140 0RF (DME) blood sugar diagnostic Strip See Rx Instructions .ROUTE .MEDSUPPLY Qty: 100 0RF Rx Instructions: test 4 times daily Primary Care Provider: Tal Story Referrals: Tal Story MD [Primary Care Provider] - Dentist,Your [STAFF PHYSICIAN] - [facility] [place] appointment Disposition Disposition: Home, Self Care
[2022-09-17] MEDS: Naproxen 250 MG Tablet 500 MG PO (21:29)
[2022-09-17] MEDS: HYDROcodone Bitartrate/Apap 5/325 Tablet PO (21:30)
[2022-09-17] MEDS: Penicillin Vk 250 MG Tablet 500 MG PO (21:30)
== END 2022-09-17 21:31 | disposition home or self-care (01) ==
PROVIDERS: Emergency Provider Emergency Medicine; PCP Internal Medicine; Visit Provider Emergency Medicine
DX: L02.91 Cutaneous abscess, unspecified (principal); E10.638 Type 1 diabetes mellitus with other oral complications; K02.9 Dental caries, unspecified; K04.01 Reversible pulpitis
CPT/HCPCS: 99282

== ENCOUNTER → 2023-01-17 | Outpatient (CLI) | payer MEDICAID, SELFPAY | END | disposition home or self-care (01) | PROVIDERS: PCP Internal Medicine; Referring Provider Obstetrics & Gynecology; Visit Provider Obstetrics & Gynecology | DX: N91.2 Amenorrhea, unspecified (principal) | CPT/HCPCS: 36415; 84702 ==

== ENCOUNTER → 2023-01-20 | Outpatient (CLI) | payer MEDICAID, SELFPAY ==
--- NOTE | 2023-01-20 14:36 | US_ITS ---
STUDY: FIRST TRIMESTER OBSTETRICAL ULTRASOUND REASON FOR EXAM: Female, 42 years old. dating TECHNIQUE: Transvaginal US was obtained to better visualized the ovaries. TECHNICAL QUALITY: Adequate. PRIOR ULTRASOUND: None. FINDINGS: There is visualization of a single gestational sac in a normal intrauterine position. There is a visualized yolk sac. The yolk sac measures 3.6 mm. The placenta is non-visualized. Due to early gestation, the placenta is not seen. There is visualization of a live embryo. The crown-rump length (CRL) measures 24 mm, indicating an estimated gestational age (EGA) of 8 weeks, 6 days. There is demonstrated cardiac activity with a heart rate of 168 bpm. The estimated gestation age (EGA) by US is 8 weeks, 6 days. The estimated date of delivery (SERAFIN) by US is 11.3.23. The uterus measures 13.4x9.6 cm. There is no demonstrated uterine fibroid. The cervix is closed. Uterus is heterogeneous. The right ovary . It is not visualized. There is too much overlying bowel gas. The left ovary . It is not visualized. There is too much overlying bowel gas. There is no fluid in the cul de sac. US/Transvaginal w/Preg US IMPRESSION: There is a single live intrauterine with a heart rate of 168 bpm. Electronically Signed: Casey Larson MD at 20:52 EDT ,
== END | disposition home or self-care (01) ==
PROVIDERS: PCP Internal Medicine; Referring Provider Nurse Practitioner Women's Health; Visit Provider Nurse Practitioner Women's Health
DX: N91.2 Amenorrhea, unspecified (principal); Z78.9 Other specified health status
CPT/HCPCS: 76817

== ENCOUNTER → 2023-01-25 | Outpatient (CLI) | payer MEDICAID, SELFPAY ==
[2023-01-25 14:41] LABS: Absolute Lymphocyte Count 2.56 X10^3/uL (0.83-4.51); Absolute Neutrophil Count 4.5 X10^3/uL (2.0-7.7); Basophil# 0.02 X10^3/uL; Basophil% 0.3 % (0-1); Eosinophil# 0.08 X10^3/uL; Hematocrit 34.1 % (37-47); Hemoglobin 10.4 g/dL (12.0-15.0); Lymphocyte # 2.56 X10^3/ul (0.83-4.51); Lymphocyte % 32.7 % (19-41); Mean Corp Hgb Conc 30.5 g/dL (32-36); Mean Corpuscular Hgb 22.7 pg (27.0-32.0); Mean Corpuscular Volume 74.3 fL (81-99); Mean Platelet Vol. 9.8 fl (6.2-12.0); Monocyte# 0.61 X10^3/uL; Monocyte% 7.8 % (0-10); NRBC Flagged by Analyzer 0 % (0-5); Neutrophil # 4.51 X10^3/uL (2.7-7.7); Neutrophil % 57.7 % (47-70); Platelet Count 339 K/mm3 (150-450); RBC Distribution Width CV 18.5 % (11.6-14.6); RBC Distribution Width SD 48.2 fl (35.1-43.9); Red Blood Count 4.59 M/mm3 (4.2-5.4); White Blood Count 7.8 K/mm3 (4.4-11.0)
[2023-01-25 16:37] LABS: HIV - WCH Non-Reactive (Nonreactive); Hepatitis B Surface Antigen Non-Reactive (Nonreactive); Hepatitis C Antibody Non-Reactive (Nonreactive); Rubella IgG Reactive (Nonreactive); Syphilis Antibodies Non-reactive
== END | disposition home or self-care (01) ==
LOC: PAVLAB 13:57
PROVIDERS: PCP Internal Medicine; Referring Provider Obstetrics & Gynecology; Visit Provider Obstetrics & Gynecology
DX: O09.90 Supervision of high risk pregnancy, unspecified, unspecified trimester (principal)
CPT/HCPCS: 36415; 83036; 85025; 86703; 86762; 86780; 86803; 86850; 86900; 86901; 87086; 87088; 87340

== ENCOUNTER → 2023-01-27 | Outpatient (CLI) | payer MEDICAID, SELFPAY ==
[2023-01-27 10:57] LABS: Vitamin B12 455 pg/mL (211-911)
[2023-01-27 11:08] LABS: Ferritin 5 ng/mL (8-252); Glucose Challenge Gest 1H 50g 136 mg/dL (70-140); Iron 21 ug/dL (50-170); Iron Binding Capacity,Total 419 ug/dL (250-450)
== END | disposition home or self-care (01) ==
LOC: PAVLAB 09:04
PROVIDERS: PCP Internal Medicine; Referring Provider Obstetrics & Gynecology; Visit Provider Obstetrics & Gynecology
DX: O99.019 Anemia complicating pregnancy, unspecified trimester (principal)
CPT/HCPCS: 36415; 82607; 82728; 82746; 82950; 83021; 83540; 83550; 85660

== ENCOUNTER → 2023-01-31 | Outpatient (CLI) | payer MEDICAID, SELFPAY ==
[2023-01-31 10:45] LABS: Glucose GTT-Gestation. Fasting 112 mg/dL (<105)
[2023-01-31 12:42] LABS: Glucose GTT-Gestational 1 Hr 121 mg/dL (<190)
[2023-01-31 12:57] LABS: Glucose GTT-Gestational 2 Hr 133 mg/dL (<165)
[2023-01-31 14:05] LABS: Glucose GTT-Gestational 3 Hr 83 L (<145)
== END | disposition home or self-care (01) ==
LOC: LAB 10:05
PROVIDERS: PCP Internal Medicine; Referring Provider Obstetrics & Gynecology; Visit Provider Obstetrics & Gynecology
DX: Z13.1 Encounter for screening for diabetes mellitus (principal)
CPT/HCPCS: 36415; 82951; 82952

== ENCOUNTER 2023-02-19 17:43 | Emergency (ER) | payer MEDICAID, SELFPAY ==
[2023-02-19 17:43] VITALS: BP 135/92; PULSE 85; RESP 14; TEMP 36.4; O2SAT 99; BMI 37.4
--- NOTE | 2023-02-19 18:00 | EX.ED.DYSGE1 ---
HPI <VICENTE Mann - Last Filed: 02/19/23 19:14> History of Present Illness Chief Complaint: Fall Narrative Narrative: Patient is a 42-year-old female with history of hypertension, obesity who is a 3 para 4 who is 13 weeks presents to the emergency department after mechanical fall. Patient states he was getting out of her car when she slipped landing on her buttocks. Patient states that she does have pain to her right knee she is not sure if she banged it against something. Patient spoke with her significant other who wanted her to get checked visibly because she is 13 weeks . Patient denies any abdominal pain, abdominal trauma, vaginal bleeding or discharge. 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) Positive GBS test Thyromegaly Home Medications vitamin#30 30 mg iron-10 mg iron-folic acid 1 mg-omg3 capsule 1 cap PO DAILY 10/31/19 [History Last Taken 05/22/21 08:00] Allergy/AdvReac Type Severity Reaction Status Date / Time iodine Allergy Hives Verified 02/19/23 17:45 Family History Unknown Diabetes Surgical History H/O dilation and curettage H/O hernia repair H/O LEEP Social History adopted: No household members: family number of children: 2 current occupational status: employed 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 Positive pain to the right knee Neurological: Negative for any headache, syncope, numbness or tingling, dizziness Skin: Negative for any rashes, lumps, itching, abrasions, lacerations Psychiatric: Negative for any depression, anxiety, stress, suicidal ideation, homicidal ideation Hematologic: Negative for any easy bruising, excessive bruising, easy bleeding Allergies: Negative for any eczema, hives, rash EXAM <VICENTE Mann - Last Filed: 02/19/23 19:14> Physical Exam Narrative Exam Narrative: Vital signs reviewed. Abdomen: Soft, nontender, nondistended. No abdominal bruit or pulsatile masses. No hepatosplenomegaly Extremities: No peripheral edema, no signs of gross trauma or deformity. Active full range of motion of all extremities. Patient has an intact extensor mechanism. Patient does have pain on palpation with any flexion, she has pain on palpation to the inferior patella. There is no deformity. Negative for any joint effusion. Patient has +2 pedal pulses Neuro: Cranial nerves II through XII intact, no focal neurological deficits. Skin: Clean dry and intact with no rash, purpura, petechiae, vesicles or pustules. Backs/flank: No CVA tenderness, no midline spinal tenderness, no deformity. Psych: Normal mood and affect. No SI, HI or acute psychosis. Const Vital Signs: 02/19/23 17:43 02/19/23 17:49 Temperature 97.6 F L Temperature Source Temporal Pulse Rate 85 Respiratory Rate 14 Respiratory Effort Normal Respiratory Depth Normal Respiratory Pattern Normal Blood Pressure 135/92 H Blood Pressure Mean 106 Pulse Ox 99 Oxygen Delivery Method Room Air Room Air <Dr. Prosper Turner, DO - Last Filed: 02/19/23 19:13> Physical Exam Const Vital Signs: 02/19/23 17:43 02/19/23 17:49 Temperature 97.6 F L Temperature Source Temporal Pulse Rate 85 Respiratory Rate 14 Respiratory Effort Normal Respiratory Depth Normal Respiratory Pattern Normal Blood Pressure 135/92 H Blood Pressure Mean 106 Pulse Ox 99 Oxygen Delivery Method Room Air Room Air MDM <VICENTE Mann - Last Filed: 02/19/23 19:14> MDM Radiography Diagnostic Testing: Clinical Impression(s) from Imaging Studies Knee X-Ray 02/19/23 18:12 IMPRESSION: Normal x-ray examination of the knee. Electronically Signed: Ran Curtis MD at 19:07 EDT , Treatment and Re-Evaluation :: All radiologic examinations were read, reviewed by the emergency department attending. From these reads, a plan of care will be put in place. Patient appears generally well, patient appears nontoxic, vital signs are stable. Patient presents to the emergency department after mechanical fall landing on her buttocks, striking her right knee. Patient is 13 weeks , she was slightly concerned even though she had not had any abdominal trauma. An order was placed for heart tones, they were roughly 130, this was found by the nurse. Patient did receive x-rays of the right knee, knees were gross unremarkable for any acute osseous abnormality. Patient did receive Tylenol here for pain. She will continue to ice, perform gentle stretching. She will follow-up closely with her PCP as well as [facility]. At this time, is no indication to suspect any injury to the patient's abdomen, patient has no pain to her back. Patient has no patella fracture. She be diagnosed with a fall, knee contusion. She is instructed return for any worsening symptoms. <Dr. Prosper Turner, DO - Last Filed: 02/19/23 19:13> [facility] Narrative Medical decision making narrative: I have personally performed a face to face assessment of the patient and have reviewed the VASQUEZ Note. I performed a substantive portion of the visit including all aspects of the following. My christianson findings include: History: Patient presents after a fall. Patient states she slipped and fell and hit her right knee. Patient states she landed on her buttocks. Patient denies any head injury or loss of consciousness. Patient states her knee pain is worse with flexion of her knee. Patient states she is approximately 13 weeks . Patient denies any abdominal pain. Patient denies any abnormal vaginal bleeding or discharge. Patient denies any other injuries. Patient was able to ambulate after the fall. Exam: Vital signs are stable. Patient is afebrile. Patient is in no acute distress. Musculoskeletal exam reveals diffuse tenderness over the right knee. Range of motion was limited in flexion of the knee secondary to pain. Strength is 5/5 bilaterally in the lower extremities. Extensor mechanism is intact. There are no sensory deficits noted. There is no laxity appreciated. Varus and valgus stress test were negative. Julian's test was negative. Medical Decision Making: Differential diagnosis includes contusion, sprain, and occult fracture. X-rays of the right knee will be obtained to assess for fracture. Patient was concerned about her and requested heart tones be obtained. These were obtained and were 130. X-rays of the right knee were obtained. There are 4 views. On my independent interpretation, there is no acute fracture or dislocation. There is no effusion. There is no soft tissue swelling. Radiologist also interpreted the x-rays and agrees. Patient was advised of her findings. Patient was instructed to ice and elevate the right knee. Patient was instructed to take Tylenol as needed for pain. Patient was instructed to follow-up with her primary care physician in 5 to 7 days. Patient understood and was agreeable with the plan. All questions were answered. Radiography Diagnostic Testing: Clinical Impression(s) from Imaging Studies Knee X-Ray 02/19/23 18:12 IMPRESSION: Normal x-ray examination of the knee. Electronically Signed: Ran Curtis MD at 19:07 EDT , X-rays of the right knee were obtained. There are 4 views. On my independent interpretation, there is no acute fracture. There is no dislocation. There is no soft tissue swelling. Radiologist also interpreted the x-rays and agrees. Discharge Plan Triage Chief Complaint: Fall ED Midlevel Provider: Zohaib Hussein ED Provider: Prosper Turner Dx/Rx/DC Orders Clinical Impression: Fall, Contusion of knee Prescriptions: No Action vitamin#30 30 mg iron-10 mg iron-folic acid 1 mg-omg3 capsule 30 mg iron-10 mg iron-1 mg capsule 1 cap PO DAILY Primary Care Provider: Tal Story Referrals: Tal Story MD [Primary Care Provider] - Activity Restrictions/Additional Instructions: Please take Tylenol for your discomfort, apply ice and elevate. Disposition Disposition: Home, Self Care
[2023-02-19] MEDS: Acetaminophen 500 MG Tablet 1000 MG PO (18:06)
--- NOTE | 2023-02-19 18:12 | RAD_ITS ---
STUDY: X-RAY - RIGHT KNEE REASON FOR EXAM: Female, 42 years old. fall -- shield abdomen please 13 wks preg TECHNIQUE: 4 view(s) of the knee. COMPARISON: None. FINDINGS: Normal visualized distal femur. Normal visualized proximal tibia and fibula. Normal proximal tibiofibular articulation. Normal medial femorotibial compartment. Normal lateral femorotibial compartment. Normal patellofemoral articulation. The soft tissue structures are unremarkable. RAD/Knee 4 or More Views IMPRESSION: Normal x-ray examination of the knee. Electronically Signed: Ran Curtis MD at 19:07 EDT ,
== END 2023-02-19 19:18 | disposition home or self-care (01) ==
LOC: ED 18:24
PROVIDERS: Emergency Provider Emergency Medicine; PCP Internal Medicine; Visit Provider Emergency Medicine
DX: O9A.211 Injury, poisoning and certain other consequences of external causes complicating pregnancy, first trimester (principal); S80.01XA Contusion of right knee, initial encounter; Z3A.13 13 weeks gestation of pregnancy; W01.0XXA Fall on same level from slipping, tripping and stumbling without subsequent striking against object, initial encounter; O16.1 Unspecified maternal hypertension, first trimester; O99.211 Obesity complicating pregnancy, first trimester; O09.521 Supervision of elderly multigravida, first trimester
CPT/HCPCS: 73564; 99283

== ENCOUNTER → 2023-03-29 | Outpatient (CLI) | payer MEDICAID, SELFPAY ==
[2023-03-29 12:27] LABS: Protein, Urine (Random) 26.9 mg/dL (<11.9); Protein:Creat Ratio 172 mg/g CRE (0-200)
== END | disposition home or self-care (01) ==
LOC: LABSPEC 11:53
PROVIDERS: PCP Internal Medicine; Referring Provider Nurse Practitioner Women's Health; Visit Provider Nurse Practitioner Women's Health
DX: O12.10 Gestational proteinuria, unspecified trimester (principal); Z3A.00 Weeks of gestation of pregnancy not specified
CPT/HCPCS: 82570; 84156

== ENCOUNTER → 2023-05-25 | Outpatient (CLI) | payer MEDICAID, SELFPAY ==
[2023-05-25 10:32] LABS: Absolute Lymphocyte Count 1.52 X10^3/uL (0.83-4.51); Absolute Neutrophil Count 3.4 X10^3/uL (2.0-7.7); Basophil# 0.01 X10^3/uL; Basophil% 0.2 % (0-1); Eosinophil# 0.05 X10^3/uL; Eosinophils% 0.9 % (0-5); Hematocrit 37.4 % (37-47); Hemoglobin 12.4 g/dL (12.0-15.0); Lymphocyte # 1.52 X10^3/ul (0.83-4.51); Lymphocyte % 28.5 % (19-41); Mean Corp Hgb Conc 33.2 g/dL (32-36); Mean Corpuscular Volume 90.6 fL (81-99); Mean Platelet Vol. 10.2 fl (6.2-12.0); Monocyte# 0.34 X10^3/uL; Monocyte% 6.4 % (0-10); NRBC Flagged by Analyzer 0 % (0-5); Neutrophil # 3.39 X10^3/uL (2.7-7.7); Neutrophil % 63.6 % (47-70); Platelet Count 205 K/mm3 (150-450); RBC Distribution Width CV 14.2 % (11.6-14.6); RBC Distribution Width SD 45.5 fl (35.1-43.9); Red Blood Count 4.13 M/mm3 (4.2-5.4); White Blood Count 5.3 K/mm3 (4.4-11.0)
[2023-05-25 10:56] LABS: Glucose GTT-Gestation. Fasting 108 mg/dL (<105)
[2023-05-25 11:28] LABS: HIV - WCH Non-Reactive (Nonreactive); Syphilis Antibodies Non-reactive
[2023-05-25 11:51] LABS: Glucose GTT-Gestational 1 Hr 136 mg/dL (<190)
[2023-05-25 12:46] LABS: Glucose GTT-Gestational 2 Hr 125 mg/dL (<165)
[2023-05-25 13:58] LABS: Glucose GTT-Gestational 3 Hr 93 L (<145)
== END | disposition home or self-care (01) ==
LOC: LAB 09:51
PROVIDERS: PCP Internal Medicine; Referring Provider Obstetrics & Gynecology; Visit Provider Obstetrics & Gynecology
DX: O09.90 Supervision of high risk pregnancy, unspecified, unspecified trimester (principal); Z3A.00 Weeks of gestation of pregnancy not specified; Z86.32 Personal history of gestational diabetes
CPT/HCPCS: 36415; 82951; 82952; 85025; 86703; 86780

== ENCOUNTER 2023-07-06 13:25 | Outpatient (CLI) | payer MEDICAID, SELFPAY ==
[2023-07-06 13:30] VITALS: TEMP 36.6; O2SAT 100
[2023-07-06 13:31] VITALS: BP 140/83; PULSE 85
[2023-07-06 14:00] VITALS: BP 130/70; PULSE 79
[2023-07-06 14:07] LABS: Hematocrit 37.3 % (37-47); Hemoglobin 12.5 g/dL (12.0-15.0); Mean Corp Hgb Conc 33.5 g/dL (32-36); Mean Corpuscular Hgb 31.2 pg (27.0-32.0); Mean Platelet Vol. 10.3 fl (6.2-12.0); Platelet Count 182 K/mm3 (150-450); RBC Distribution Width CV 13.2 % (11.6-14.6); RBC Distribution Width SD 45.1 fl (35.1-43.9); Red Blood Count 4.01 M/mm3 (4.2-5.4); White Blood Count 6.5 K/mm3 (4.4-11.0)
[2023-07-06 14:15] VITALS: BP 132/73; PULSE 75
[2023-07-06 14:27] LABS: AST(SGOT) 13 U/L (15-37); Alanine Aminotransfer ALT/SGPT 15 U/L (13-56); Creatinine, Serum 0.47 mg/dL (0.55-1.02); EST Glomerular Filtration Rate 156 mL/min (>60); Est Glom Filt Rate - Afr Amer 189 mL/min (>60)
[2023-07-06 14:29] LABS: Protein, Urine (Random) < 6.0 mg/dL (<11.9); Protein:Creat Ratio 96 mg/g CRE (0-200)
[2023-07-06 14:31] VITALS: BP 135/77; PULSE 73
[2023-07-06 14:45] VITALS: BP 123/70; PULSE 74
--- NOTE | 2023-07-06 14:50 | OB.TRI.HP_ITS ---
HPI - General General Date of Admission: 07/06/23 HPI Narrative IDA IQBAL, is a 42 F who was sent to L&D after was found to have an elevated blood pressure in the office. She denies headaches, visual changes, or RUQ pain. 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) Positive GBS test Thyromegaly Home Medications vitamin#30 30 mg iron-10 mg iron-folic acid 1 mg-omg3 capsule 1 cap PO DAILY 10/31/19 [History Last Taken 05/22/21 08:00] ondansetron HCl 4 mg tablet 4 mg PO Q6H PRN nausea and vomiting #30 tabs 02/25/23 [Rx Last Taken Unknown] Allergy/AdvReac Type Severity Reaction Status Date / Time iodine Allergy Hives Verified 07/06/23 13:01 Family History Unknown Diabetes Surgical History H/O dilation and curettage H/O hernia repair H/O LEEP Social History adopted: No household members: family number of children: 3 current occupational status: employed 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 Date Name GA/Weeks Outcome Route Bth Weight Infant Gen Labor Lgth Anesthesia Del Locatn Provider FOB Unknown 2007 [facility] 39 live - full term Male 12 hours epidural [facility] Unknown 2016 [facility] 40 live - full term 6lbs 12oz Male 12 hours epidural [facility] Unknown 09/2018- SAB Unknown 10/2019- SAB Unknown 02/2019 12 [facility] 05/23/21 Guy 38 live - full term Male [facility] Patel Delivery Date: Last Updated by: Racquel LAU Delivery Date: Last Updated by: Racquel LAU Delivery Date: Last Updated by: Racquel Rose Blighted Ovum Delivery Date: Last Updated by: Racquel Rose Trisomy 18- suction dilation and curettage Delivery Date: 05/23/21 Last Updated by: Julissa Leon IOL GDMA2, CHTN Visit Details OB Flowsheet Initial Weight: Not Recorded Date -?-?-?-?-?-?-?-?-?-?-?-?- EGA Weight BP Urine Prot -?-?-?-?-?-?-?-?-?-?-?-?- Glucose FHR FuHt Pres Dilation -?-?-?-?-?-?-?-?-?-?-?-?- Effaced St Visit Note 01/25/23 -?-?-?-?-?-?-?-?-?-?-?-?- 9w 4d 208 lb 4 oz 136/88 -?-?-?-?-?-?-?-?-?-?-?-?- 160 -?-?-?-?-?-?-?-?-?-?-?-?- SM- CRL cons wit h previous SERAFIN 02/25/23 -?-?-?-?-?-?-?-?-?-?-?-?- 14w 0d 211 lb 2 oz 130/79 Nega tive -?-?-?-?-?-?-?-?-?-?-?-?- Negative 145 -?-?-?-?-?-?-?-?-?-?-?-?- JV- normal 3 hr but fasting was 112. a1c pending. no complaints. anatomy ordered 03/07/23 -?-?-?-?-?-?-?-?-?-?-?-?- 15w 3d 215 lb 136/78 Negative -?-?-?-?-?-?-?-?-?-?-?-?- Negative 155 -?-?-?-?-?-?-?-?-?-?-?-?- LC- no cramping. had vb after intercourse. +FHT 03/29/23 -?-?-?-?-?-?-?-?-?-?-?-?- 18w 4d 214 lb 4 oz 124/93 Trac e -?-?-?-?-?-?-?-?-?-?-?-?- Negative 147 -?-?-?-?-?-?-?-?-?-?-?-?- MH-No Vb, LOF. G ood FM. MFM US next week. Rpt CBC today 04/29/23 -?-?-?-?-?-?-?-?-?-?-?-?- 23w 0d 217 lb 4 oz 135/78 Nega tive -?-?-?-?-?-?-?-?-?-?-?-?- Negative 150 28 -?-?-?-?-?-?-?-?-?-?-?-?- JV- pt prefers t o do the 3 hr gtt because she feels like she is going to probably fail the 1 hr again. no lof, vaginal bleeding, or cramping. 05/24/23 -?-?-?-?-?-?-?-?-?-?-?-?- 26w 4d 218 lb 4 oz 119/73 -?-?-?-?-?-?-?-?-?-?-?-?- 147 29 -?-?-?-?-?-?-?-?-?-?-?-?- JV- pt requests tubal ligation. kids have hand/foot/mouth disease. discussed decreasing spread. gtt tomorrow. needs title 19 next visit. 06/07/23 -?-?-?-?-?-?-?-?-?-?-?-?- 28w 4d 218 lb 6 oz 130/87 Trac e -?-?-?-?-?-?-?-?-?-?-?-?- Negative 145 29 -?-?-?-?-?-?-?-?-?-?-?-?- KW-no lof/vb/ctx . good fm. no concerns. labs reviewed. 06/23/23 -?-?-?-?-?-?-?-?-?-?-?-?- 30w 6d 218 lb 126/78 -?-?-?-?-?-?-?-?-?-?-?-?- 135 31 -?-?-?-?-?-?-?-?-?-?-?-?- JV- title 19 sig dennys today. no lof, vaginal bleeding, or dec fm. 07/06/23 -?-?-?-?-?-?-?-?-?-?-?-?- 32w 5d 220 lb 6 oz 150/100 1+ -?-?-?-?-?-?-?-?-?-?-?-?- Negative -?-?-?-?-?-?-?-?-?-?-?-?- MH-elevated BP w proteinuria. To for evaluation. ROS Constitutional Constitutional: Reports systems reviewed and no addt'l complaints, except as documented Gastrointestinal Gastrointestinal: Denies bloating, constipation, cramping, diarrhea, nausea or vomiting Genitourinary Genitourinary: Reports other Details: Denies vaginal odor, vaginal bleeding, or vaginal discharge ; Denies difficulty urinating or flank pain NST FHR Rate Baby A Baseline: 140 Variability:: Moderate Accelerations:: 15 x 15 Decelerations:: None NST Reactive:: Yes FHR Category:: Category I Assessment & Plan (1) Elevated blood pressure affecting in third trimester, antepartum: COMMENT: To for further evaluation PLAN: Plan P:CR ratio was normal at 59, ast and alt were normal, plts 182. Her bp's were 140/83, 130/70, 132/73, 135/77 nst was reactive and now baby is in a sleep pattern. ok to dc to home. Charges/Coding Multi Select Codes Urinary/Genital Urinary/Genital CPT Codes: 23703-55 non-stress test Interp
--- NOTE | 2023-07-06 14:50 | OB.TRI.NOTE ---
HPI - General General Date of Admission: 07/06/23 HPI Narrative IDA IQBAL, is a 42 F who was sent to L&D after was found to have an elevated blood pressure in the office. She denies headaches, visual changes, or RUQ pain. 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) Positive GBS test Thyromegaly Home Medications vitamin#30 30 mg iron-10 mg iron-folic acid 1 mg-omg3 capsule 1 cap PO DAILY 10/31/19 [History Last Taken 05/22/21 08:00] ondansetron HCl 4 mg tablet 4 mg PO Q6H PRN nausea and vomiting #30 tabs 02/25/23 [Rx Last Taken Unknown] Allergy/AdvReac Type Severity Reaction Status Date / Time iodine Allergy Hives Verified 07/06/23 13:01 Family History Unknown Diabetes Surgical History H/O dilation and curettage H/O hernia repair H/O LEEP Social History adopted: No household members: family number of children: 3 current occupational status: employed 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 Date Name GA/Weeks Outcome Route Bth Weight Infant Gen Labor Lgth Anesthesia Del Locatn Provider FOB Unknown 2007 [facility] 39 live - full term Male 12 hours epidural [facility] Unknown 2016 Major 40 live - full term 6lbs 12oz Male 12 hours epidural [facility] Unknown 09/2018- SAB Unknown 10/2019- SAB Unknown 02/2019 12 [facility] 05/23/21 Guy 38 live - full term Male [facility] Patel Delivery Date: Last Updated by: Racquel LAU Delivery Date: Last Updated by: Racquel LAU Delivery Date: Last Updated by: Racquel Rose Blighted Ovum Delivery Date: Last Updated by: Racquel Rose Trisomy 18- suction dilation and curettage Delivery Date: 05/23/21 Last Updated by: Julissa Leon IOL GDMA2, CHTN Visit Details OB Flowsheet Initial Weight: Not Recorded Date <del>?</del> EGA Weight BP Urine Prot <del>?</del> Glucose FHR FuHt Pres Dilation <del>?</del> Effaced St Visit Note 01/25/23 <del>?</del> 9w 4d 208 lb 4 oz 136/88 <del>?</del> 160 <del>?</del> SM- CRL cons with previous SERAFIN 02/25/23 <del>?</del> 14w 0d 211 lb 2 oz 130/79 Negative <del>?</del> Negative 145 <del>?</del> JV- normal 3 hr but fasting was 112. a1c pending. no complaints. anatomy ordered 03/07/23 <del>?</del> 15w 3d 215 lb 136/78 Negative <del>?</del> Negative 155 <del>?</del> LC- no cramping. had vb after intercourse. +FHT 03/29/23 <del>?</del> 18w 4d 214 lb 4 oz 124/93 Trace <del>?</del> Negative 147 <del>?</del> MH-No Vb, LOF. Good FM. MFM US next week. Rpt CBC today 04/29/23 <del>?</del> 23w 0d 217 lb 4 oz 135/78 Negative <del>?</del> Negative 150 28 <del>?</del> JV- pt prefers to do the 3 hr gtt because she feels like she is going to probably fail the 1 hr again. no lof, vaginal bleeding, or cramping. 05/24/23 <del>?</del> 26w 4d 218 lb 4 oz 119/73 <del>?</del> 147 29 <del>?</del> JV- pt requests tubal ligation. kids have hand/foot/mouth disease. discussed decreasing spread. gtt tomorrow. needs title 19 next visit. 06/07/23 <del>?</del> 28w 4d 218 lb 6 oz 130/87 Trace <del>?</del> Negative 145 29 <del>?</del> KW-no lof/vb/ctx. good fm. no concerns. labs reviewed. 06/23/23 <del>?</del> 30w 6d 218 lb 126/78 <del>?</del> 135 31 <del>?</del> JV- title 19 signed today. no lof, vaginal bleeding, or dec fm. 07/06/23 <del>?</del> 32w 5d 220 lb 6 oz 150/100 1+ <del>?</del> Negative <del>?</del> MH-elevated BP w proteinuria. To WP for evaluation. ROS Constitutional Constitutional: Reports systems reviewed and no addt'l complaints, except as documented Gastrointestinal Gastrointestinal: Denies bloating, constipation, cramping, diarrhea, nausea or vomiting Genitourinary Genitourinary: Reports other Details: Denies vaginal odor, vaginal bleeding, or vaginal discharge ; Denies difficulty urinating or flank pain NST FHR Rate Baby A Baseline: 140 Variability:: Moderate Accelerations:: 15 x 15 Decelerations:: None NST Reactive:: Yes FHR Category:: Category I Assessment & Plan (1) Elevated blood pressure affecting in third trimester, antepartum: COMMENT: To WP for further evaluation PLAN: Plan P:CR ratio was normal at 59, ast and alt were normal, plts 182. Her bp's were 140/83, 130/70, 132/73, 135/77 nst was reactive and now baby is in a sleep pattern. ok to dc to home. Charges/Coding Multi Select Codes Urinary/Genital Urinary/Genital CPT Codes: 46475-66 non-stress test Interp
== END 2023-07-06 15:00 | disposition home or self-care (01) ==
LOC: WPOUT 13:28 → WP 13:29
PROVIDERS: Referring Provider Obstetrics & Gynecology; Visit Provider Obstetrics & Gynecology
DX: O16.3 Unspecified maternal hypertension, third trimester (principal); O99.343 Other mental disorders complicating pregnancy, third trimester; F32.A Depression, unspecified; Z3A.32 32 weeks gestation of pregnancy
CPT/HCPCS: 36415; 59025; 59050; 82565; 82570; 84156; 84450; 84460; 84550; 85027; 99221; G0378

== ENCOUNTER → 2023-07-12 | Outpatient (CLI) | payer MEDICAID, SELFPAY ==
--- NOTE | 2023-07-12 11:59 | US_ITS ---
STUDY: OBSTETRICAL ULTRASOUND - BIOPHYSICAL PROFILE REASON FOR EXAM: Female, 42 years old non - reactive NST LMP: November 17, 2022. PRIOR ULTRASOUND: Comparison is made with prior study dated January 20, 2023. TECHNIQUE: Transabdominal TECHNICAL QUALITY: Adequate. FINDINGS: There is a single intrauterine fetus. The fetus is in a cephalic presentation. There is demonstrated cardiac activity with a heart rate of 129 bpm. There is a normal amniotic fluid volume. The largest amniotic fluid pocket measures 6.35 cm. The amniotic fluid index (ANTONIETA) is 19.9 cm. The placenta is fundal in location. There are Grade 1 placental changes. Age by LMP: 33 weeks, 6 days. SERAFIN by LMP: August 24, 2023. BIOPHYSICAL PROFILE: Breathing Movements (FBM): 2 Gross Body Movements (GBM): 2 Tone (FT): 2 Amniotic Fluid Volume (AFV): 2 TOTAL SCORE: 8 / 8 US/Biophysical Prof W/O Non Stres IMPRESSION: Normal biophysical profile of 05/31. Electronically Signed: Virgil Elizabeth MD at 13:00 EDT ,
== END | disposition home or self-care (01) ==
LOC: US 11:58
PROVIDERS: Referring Provider Nurse Practitioner Women's Health; Visit Provider Nurse Practitioner Women's Health
DX: O28.8 Other abnormal findings on antenatal screening of mother (principal); Z3A.00 Weeks of gestation of pregnancy not specified
CPT/HCPCS: 76819

== ENCOUNTER 2023-07-27 17:18 | Inpatient (IN) | payer MEDICAID, SELFPAY ==
[2023-07-27] VITALS (65 sets, daily range): BP systolic 128–168; BP diastolic 73–107; PULSE 83–101; RESP 13–16; TEMP 36.2–37.3; O2SAT 84–100; BMI 36.6
[2023-07-27] MEDS: Acetaminophen 500 MG Tablet 1000 MG PO (16:08)
[2023-07-27 16:14] LABS: Hematocrit 39.2 % (37-47); Hemoglobin 13.2 g/dL (12.0-15.0); Mean Corp Hgb Conc 33.7 g/dL (32-36); Mean Corpuscular Hgb 31.4 pg (27.0-32.0); Mean Corpuscular Volume 93.3 fL (81-99); Mean Platelet Vol. 10.2 fl (6.2-12.0); Platelet Count 206 K/mm3 (150-450); RBC Distribution Width SD 44.1 fl (35.1-43.9); White Blood Count 6.4 K/mm3 (4.4-11.0)
[2023-07-27 16:39] LABS: AST(SGOT) 15 U/L (15-37); Alanine Aminotransfer ALT/SGPT 17 U/L (13-56); Creatinine, Serum 0.57 mg/dL (0.55-1.02); EST Glomerular Filtration Rate 124 mL/min (>60); Est Glom Filt Rate - Afr Amer 150 mL/min (>60); Estimated Creatinine Clearance 116.88 ml/min; Uric Acid 3.3 mg/dL (2.6-6.0)
[2023-07-27] MEDS: Betamethasone/Betamethasone 30 MG/5 ML Vial 12 MG IM (16:44)
[2023-07-27] MEDS: Lactated Ringers 1,000 ML 50 ML IV (17:00)
[2023-07-27 17:07] LABS: Protein, Urine (Random) < 6.0 mg/dL (<11.9); Protein:Creat Ratio 140 mg/g CRE (0-200)
[2023-07-27] MEDS: Labetalol (Prefilled) 20 MG/4 ML IV (17:32)
[2023-07-27] MEDS: Magnesium Sulfate 4gm/100mL 4 GM/100 ML IV.SOLN. IV (18:05)
[2023-07-27] MEDS: Ampicillin 2 GM in 0.9% Normal Saline (100mL MB+) 100 ML IV (18:21)
[2023-07-27] MEDS: Magnesium Sulfate 4gm/100mL 2 GM/50 ML IV.SOLN. IV (18:25)
[2023-07-27] MEDS: Magnesium Sulfate 20 GM/500 ML BAG IV (18:35)
--- NOTE | 2023-07-27 18:45 | HP.PCM.OB_ITS ---
HPI - General General Date of Admission: 07/27/23 HPI Narrative IDA IQBAL, is a 42 F who presents for IOL secondary to severe preeclampsia, elevated bps in severe range, JASSO and blurry vision no clonus or hyperreflexia. 11/12 Maternal Data Information SERAFIN Calculator Estimated Delivery Date Method Current WG Current Estimate 08/26/23 Ultrasound #1 35w 5d Other Estimates 08/23/23 Ultrasound #2 36w 1d PFSH PFSH Medical History Anemia Depression affecting Family history of trisomy 18 HPV test positive Hypertension Low grade squamous intraepithelial lesion (LGSIL) Low grade squamous intraepithelial lesion (LGSIL) Positive GBS test Thyromegaly Home Medications ondansetron HCl 4 mg tablet 4 mg PO Q6H PRN nausea and vomiting #30 tabs 02/25/23 [Rx Last Taken Unknown] vitamin#30 30 mg iron-10 mg iron-folic acid 1 mg-omg3 capsule 1 cap PO DAILY #90 caps 07/07/23 [Rx Last Taken Unknown] Allergy/AdvReac Type Severity Reaction Status Date / Time iodine Allergy Hives Verified 07/27/23 14:51 Family History Unknown Diabetes Surgical History H/O dilation and curettage H/O hernia repair H/O LEEP Social History adopted: No household members: family number of children: 3 current occupational status: employed current occupation: [employer] at [employer] Smoking Status: Never smoker alcohol intake: never substance use type: does not use caffeine: Yes what type of physical activity do you participate in: walking seatbelt use: always do you feel safe at home: Yes additional social history: - Kenny History 6 Elective abortions Hx Para 3 Spontaneous abortions 3 Hx # Term Pregnancies Ectopic pregnancies Hx # Pregnancies Multiple births # of living children 3 Past Pregnancies Del. Date Name GA/Weeks Outcome Route Bth Weight Gen Labor Lgth Anesthesia Del Locatn Provider FOB Unknown 2007 [facility] 39 live - full term Male 12 hours epidural [facility] Unknown 2015 Major 40 live - full term 6lbs 12oz Male 12 hours epidural [facility] Unknown 09/2018- SAB Unknown 10/2019- SAB Unknown 02/2019 12 [facility] 05/23/21 Guy 38 live - full term Male [facility] Patel Delivery Date: Last Updated by: Racquel LAU Delivery Date: Last Updated by: Racquel LAU Delivery Date: Last Updated by: Racquel Rose Blighted Ovum Delivery Date: Last Updated by: Racquel Rose Trisomy 18- suction dilation and curettage Delivery Date: 05/23/21 Last Updated by: Julissa Leon IOL GDMA2, CHTN Visit Details OB Flowsheet Initial Weight: Not Recorded Date -?-?-?-?-?-?-?-?-?-?-?-?- EGA Weight BP Urine Prot -?-?-?-?-?-?-?-?-?-?-?-?- Glucose FHR FuHt Pres Dilation -?-?-?-?-?-?-?-?-?-?-?-?- Effaced St Visit Note 01/25/23 -?-?-?-?-?-?-?-?-?-?-?-?- 9w 4d 208 lb 4 oz 136/88 -?-?-?-?-?-?-?-?-?-?-?-?- 160 -?-?-?-?-?-?-?-?-?-?-?-?- SM- CRL cons wit h previous SERAFIN 02/25/23 -?-?-?-?-?-?-?-?-?-?-?-?- 14w 0d 211 lb 2 oz 130/79 Nega tive -?-?-?-?-?-?-?-?-?-?-?-?- Negative 145 -?-?-?-?-?-?-?-?-?-?-?-?- JV- normal 3 hr but fasting was 112. a1c pending. no complaints. anatomy ordered 03/07/23 -?-?-?-?-?-?-?-?-?-?-?-?- 15w 3d 215 lb 136/78 Negative -?-?-?-?-?-?-?-?-?-?-?-?- Negative 155 -?-?-?-?-?-?-?-?-?-?-?-?- LC- no cramping. had vb after intercourse. +FHT 03/29/23 -?-?-?-?-?-?-?-?-?-?-?-?- 18w 4d 214 lb 4 oz 124/93 Trac e -?-?-?-?-?-?-?-?-?-?-?-?- Negative 147 -?-?-?-?-?-?-?-?-?-?-?-?- MH-No Vb, LOF. G ood FM. MFM US next week. Rpt CBC today 04/29/23 -?-?-?-?-?-?-?-?-?-?-?-?- 23w 0d 217 lb 4 oz 135/78 Nega tive -?-?-?-?-?-?-?-?-?-?-?-?- Negative 150 28 -?-?-?-?-?-?-?-?-?-?-?-?- JV- pt prefers t o do the 3 hr gtt because she feels like she is going to probably fail the 1 hr again. no lof, vaginal bleeding, or cramping. 05/24/23 -?-?-?-?-?-?-?-?-?-?-?-?- 26w 4d 218 lb 4 oz 119/73 -?-?-?-?-?-?-?-?-?-?-?-?- 147 29 -?-?-?-?-?-?-?-?-?-?-?-?- JV- pt requests tubal ligation. kids have hand/foot/mouth disease. discussed decreasing spread. gtt tomorrow. needs title 19 next visit. 06/07/23 -?-?-?-?-?-?-?-?-?-?-?-?- 28w 4d 218 lb 6 oz 130/87 Trac e -?-?-?-?-?-?-?-?-?-?-?-?- Negative 145 29 -?-?-?-?-?-?-?-?-?-?-?-?- KW-no lof/vb/ctx . good fm. no concerns. labs reviewed. 06/23/23 -?-?-?-?-?-?-?-?-?-?-?-?- 30w 6d 218 lb 126/78 -?-?-?-?-?-?-?-?-?-?-?-?- 135 31 -?-?-?-?-?-?-?-?-?-?-?-?- JV- title 19 sig dennys today. no lof, vaginal bleeding, or dec fm. 07/06/23 -?-?-?-?-?-?-?-?-?-?-?-?- 32w 5d 220 lb 6 oz 150/100 1+ -?-?-?-?-?-?-?-?-?-?-?-?- Negative -?-?-?-?-?-?-?-?-?-?-?-?- MH-elevated BP w proteinuria. To WP for evaluation. 07/12/23 -?-?-?-?-?-?-?-?-?-?-?-?- 33w 4d 219 lb 6 oz 134/86 Nega tive -?-?-?-?-?-?-?-?-?-?-?-?- Negative 130 -?-?-?-?-?-?-?-?-?-?-?-?- MH-BP check and NST. Nonreactive NST and sent for BPP 07/27/23 -?-?-?-?-?-?-?-?-?-?-?-?- 35w 5d 222 lb 151/97 Negative -?-?-?-?-?-?-?-?-?-?-?-?- Negative 140 35 -?-?-?-?-?-?-?-?-?-?-?-?- LC- no vb/ctx/lo f. good fm. +headaches, visual changes. denies RUQ pain. sent to for PEC work up. NST FHR Rate Baby A Baseline: 130 Variability:: Moderate Accelerations:: 15 x 15 Decelerations:: None NST Reactive:: Yes FHR Category:: Category I Uterine Activity:: irregular ROS Constitutional Constitutional: Reports systems reviewed and no addt'l complaints, except as documented Eyes Eyes: Denies change in vision ENT HEENT: Reports systems reviewed and no addt'l complaints, except as documented; Denies headache(s) Cardiovascular Cardiovascular: Reports systems reviewed and no addt'l complaints, except as documented; Denies chest pain or dyspnea Respiratory/Chest Respiratory/Chest: Reports systems reviewed and no addt'l complaints, except as documented Gastrointestinal Gastrointestinal: Reports systems reviewed and no addt'l complaints, except as documented; Denies abdominal pain Genitourinary Genitourinary: Reports systems reviewed and no addt'l complaints, except as documented, contractions Details: present (irregular) and movement Details: present; Denies dysuria or genital lesions Musculoskeletal Musculoskeletal: Reports systems reviewed and no addt'l complaints, except as documented Neurologic Neurologic: Reports systems reviewed and no addt'l complaints, except as documented Endocrine Endocrinology: Reports systems reviewed and no addt'l complaints, except as documented Vital Signs Vital Signs Vital Signs: 07/27/23 15:45 07/27/23 15:45 07/27/23 15:48 Temperature Pulse Rate 87 Blood Pressure 142/80 H BP Systolic 142 BP Diastolic 80 Pulse Ox 98 07/27/23 15:48 07/27/23 16:04 07/27/23 16:04 Temperature Pulse Rate 83 88 Blood Pressure 143/91 H BP Systolic 143 BP Diastolic 91 Pulse Ox 07/27/23 16:13 07/27/23 16:13 07/27/23 16:10 Temperature Pulse Rate 92 Blood Pressure BP Systolic BP Diastolic Pulse Ox 99 99 07/27/23 16:10 07/27/23 16:20 07/27/23 16:20 Temperature 99.2 F H Pulse Rate 87 Blood Pressure 160/88 H BP Systolic 160 BP Diastolic 88 Pulse Ox 07/27/23 16:34 07/27/23 16:34 07/27/23 16:53 Temperature Pulse Rate 88 Blood Pressure 166/86 H 143/95 H BP Systolic 166 143 BP Diastolic 86 95 Pulse Ox 07/27/23 16:53 07/27/23 17:12 07/27/23 17:12 Temperature Pulse Rate 96 92 Blood Pressure 168/107 H BP Systolic 168 BP Diastolic 107 Pulse Ox 07/27/23 17:27 07/27/23 17:27 07/27/23 17:48 Temperature Pulse Rate 90 92 Blood Pressure 144/97 H BP Systolic 144 BP Diastolic 97 Pulse Ox 07/27/23 17:48 07/27/23 17:53 07/27/23 17:53 Temperature Pulse Rate 90 Blood Pressure BP Systolic BP Diastolic Pulse Ox 99 99 07/27/23 17:56 07/27/23 17:56 07/27/23 17:58 Temperature Pulse Rate 86 86 Blood Pressure 128/85 H BP Systolic 128 BP Diastolic 85 Pulse Ox 07/27/23 17:58 07/27/23 18:03 07/27/23 18:03 Temperature Pulse Rate 86 Blood Pressure BP Systolic BP Diastolic Pulse Ox 97 97 07/27/23 18:08 07/27/23 18:08 07/27/23 18:11 Temperature Pulse Rate 87 Blood Pressure 137/91 H BP Systolic 137 BP Diastolic 91 Pulse Ox 97 07/27/23 18:11 07/27/23 18:13 07/27/23 18:13 Temperature Pulse Rate 92 98 Blood Pressure BP Systolic BP Diastolic Pulse Ox 96 07/27/23 18:18 07/27/23 18:18 07/27/23 18:23 Temperature Pulse Rate 100 98 Blood Pressure BP Systolic BP Diastolic Pulse Ox 98 07/27/23 18:23 07/27/23 18:27 07/27/23 18:27 Temperature Pulse Rate 89 Blood Pressure 135/82 H BP Systolic 135 BP Diastolic 82 Pulse Ox 99 07/27/23 18:28 07/27/23 18:28 07/27/23 18:33 Temperature Pulse Rate 89 89 Blood Pressure BP Systolic BP Diastolic Pulse Ox 96 07/27/23 18:33 07/27/23 18:38 07/27/23 18:38 Temperature Pulse Rate 98 Blood Pressure BP Systolic BP Diastolic Pulse Ox 95 97 07/27/23 18:42 07/27/23 18:42 07/27/23 18:43 Temperature Pulse Rate 88 87 Blood Pressure 138/79 H BP Systolic 138 BP Diastolic 79 Pulse Ox 07/27/23 18:43 Temperature Pulse Rate Blood Pressure BP Systolic BP Diastolic Pulse Ox 96 Weight Weight: 220 lb Body Mass Index (BMI) 36.6 Physical Exam Const alert, oriented x3, no apparent distress and healthy appearing HEENT normocephalic and moist oral mucous membranes Head and Scalp: atraumatic Neck full ROM, no lymphadenopathy, supple and thyroid normal General: trachea midline Lymph Lymphatic: no lymphadenopathy noted Chest inspection of chest normal Resp normal respiratory effort Cardio regular rate GI normal to inspection, nondistended, normoactive bowel sounds, soft to palpation and non-tender Inspection: gravid external exam normal Manual OB Exam: estimated gestational size appropriate, presentation cephalic, dilated, effaced and station Extremity normal to inspection General Extremity: Negative for edema Skin no rashes or lesions noted Neuro no focal motor deficits and deep tendon reflexes 2+ bilaterally Motor Exam: strength 5/5 throughout and clonus absent Psych mental status grossly normal Labs Labs Labs: Blood Type B POSITIVE Antibody Screen NEGATIVE Hct 39.2 % (37-47) Hgb 13.2 g/dL (12.0-15.0) Obstetrics US Syphilis Total Ab Non-reactive Rubella IgG Antibody Reactive (Nonreactive) Hep Bs Antigen Non-Reactive (Nonreactive) HIV 1&2 Antibody Non-Reactive (Nonreactive) Glucose 1 Hr 50 gm 136 mg/dL (70-140) Rhogam given: No Miscellaneous Test Assessment & Plan (1) Pre-eclampsia, severe, third trimester: (2) : QUALIFIERS: Weeks of gestation: 35 weeks Qualified Code(s): Z3A.35 - 35 weeks gestation of COMMENT: anatomy nl, declines genetic screen and NIPT (3) Hypertension affecting : QUALIFIERS: Trimester: third trimester Qualified Code(s): O16.3 - Unspecified maternal hypertension, third trimester COMMENT: no meds, diet controlled. baseline labs (4) History of gestational diabetes: COMMENT: nl 3 HR GTT (5) Obesity affecting : QUALIFIERS: Trimester: third trimester Obesity type affecting : severe obesity due to excess calories Qualified Code(s): O99.213 - Obesity complicating , third trimester; E66.01 - Morbid (severe) obesity due to excess calories COMMENT: 1 TM GCT encouraged healthy weight gain start nsts at 37 weeks (BMI 37) (6) Supervision of high risk , antepartum: COMMENT: SERAFIN 08/26/23 PC: Sherine, Major Spouse: Kenny (7) AMA (advanced maternal age) multigravida 35+: QUALIFIERS: Trimester: third trimester Qualified Code(s): O09.523 - Supervision of elderly multigravida, third trimester COMMENT: genetic counseling provided- plan NT, plan 36 week growth us (8) Anemia: QUALIFIERS: Anemia type: unspecified type Qualified Code(s): D64.9 - Anemia, unspecified COMMENT: repeat cbc in 1 month, hemoglobinopathy and vitamin workup ordered PLAN: Plan Patient presents IOL, plan management for with cytotec. Pain management: plans epidural. GBS unknown plan Amp for prematurity celestone given magnesium for severe pree and labetalol. Management of any complications: pree labs WNL I have reviewed the [facility] and made any clinically relevant updates.
[2023-07-27 18:58] LABS: Syphilis Antibodies Non-reactive
[2023-07-27 19:23] LABS: Absolute Neutrophil Count 3.9 X10^3/uL (2.0-7.7); Basophil# 0.03 X10^3/uL; Basophil% 0.4 % (0-1); Eosinophil# 0.04 X10^3/uL; Eosinophils% 0.6 % (0-5); Hematocrit 39.7 % (37-47); Hemoglobin 13.2 g/dL (12.0-15.0); Lymphocyte % 33.3 % (19-41); Mean Corp Hgb Conc 33.2 g/dL (32-36); Mean Corpuscular Hgb 31.1 pg (27.0-32.0); Mean Corpuscular Volume 93.6 fL (81-99); Mean Platelet Vol. 10.8 fl (6.2-12.0); Monocyte# 0.59 X10^3/uL; Monocyte% 8.6 % (0-10); NRBC Flagged by Analyzer 0 % (0-5); Neutrophil # 3.92 X10^3/uL (2.7-7.7); Neutrophil % 56.8 % (47-70); Platelet Count 212 K/mm3 (150-450); RBC Distribution Width CV 12.9 % (11.6-14.6); RBC Distribution Width SD 44.7 fl (35.1-43.9); Red Blood Count 4.24 M/mm3 (4.2-5.4); White Blood Count 6.9 K/mm3 (4.4-11.0)
[2023-07-27] MEDS: Labetalol 100 MG Tablet PO (20:24)
[2023-07-27] MEDS: miSOPROStol 25 MCG TABLET VAGINAL (20:40)
[2023-07-27] MEDS: Acetaminophen 500 MG Tablet PO (22:24)
[2023-07-27] MEDS: Ampicillin 1,000 MG in 0.9% Normal Saline (50mL MB+) 50 ML 150 MG IV (22:25)
[2023-07-28] VITALS (74 sets, daily range): BP systolic 115–151; BP diastolic 57–95; PULSE 75–105; RESP 15–18; TEMP 35.8–36.9; O2SAT 82–100
[2023-07-28] MEDS: miSOPROStol 50 MCG TABLET VAGINAL (00:38)
[2023-07-28] MEDS: Ampicillin 1,000 MG in 0.9% Normal Saline (50mL MB+) 50 ML 150 MG IV ×3 (02:08→10:56)
[2023-07-28] MEDS: Magnesium Sulfate 20 GM/500 ML BAG IV ×2 (04:24→18:19)
[2023-07-28] MEDS: Oxytocin 15 Units/NS 250ml 15 UNITS/250 ML IV.SOLN 2 UNITS IV (08:28)
[2023-07-28] MEDS: Labetalol 100 MG Tablet PO ×2 (09:58→22:10)
[2023-07-28] MEDS: Ondansetron 4 MG/2 ML Vial IV (11:18)
[2023-07-28] MEDS: LACTATED RINGERS 500 ML 999 ML IV (12:44)
[2023-07-28] MEDS: Amnioinfusion- 0.9% NS 1,000 ML IV.SOLN. 1000 ML INTRA-UTER (12:56)
--- NOTE | 2023-07-28 13:31 | OP.PCM_ITS ---
Assessment & Plan (1) Pre-eclampsia, severe, third trimester: (2) Anemia: QUALIFIERS: Anemia type: unspecified type Qualified Code(s): D64.9 - Anemia, unspecified COMMENT: repeat cbc in 1 month, hemoglobinopathy and vitamin workup ordered (3) AMA (advanced maternal age) multigravida 35+: QUALIFIERS: Trimester: third trimester Qualified Code(s): O09.523 - Supervision of elderly multigravida, third trimester COMMENT: genetic counseling provided- plan NT, plan 36 week growth us (4) Supervision of high risk , antepartum: COMMENT: SERAFIN 08/26/23 PC: Sherine, Major Spouse: Kenny (5) Obesity affecting : QUALIFIERS: Obesity type affecting : severe obesity due to excess calories Trimester: third trimester Qualified Code(s): O99.213 - Obesity complicating , third trimester; E66.01 - Morbid (severe) obesity due to excess calories COMMENT: 1 TM GCT encouraged healthy weight gain start nsts at 37 weeks (BMI 37) (6) Hypertension affecting : QUALIFIERS: Trimester: third trimester Qualified Code(s): O16.3 - Unspecified maternal hypertension, third trimester COMMENT: no meds, diet controlled. baseline labs (7) : QUALIFIERS: Weeks of gestation: 35 weeks Qualified Code(s): Z3A.35 - 35 weeks gestation of COMMENT: anatomy nl, declines genetic screen and NIPT (8) Contraceptive management: QUALIFIERS: Contraceptive encounter type: other general counseling and advice Qualified Code(s): Z30.09 - Encounter for other general counseling and advice on contraception COMMENT: wants tubal ligation. discussed on 05/24/23, signed 06/23/23 (9) Vaginal delivery: COMMENT: SM IOL Severe pree 35 boy Maternal Data Information SERAFIN Calculator Estimated Delivery Date Method Current WG Current Estimate 08/26/23 Ultrasound #1 35w 6d Other Estimates 08/23/23 Ultrasound #2 36w 2d Vaginal Delivery Operative Information Date of Procedure: 07/28/23 Pre-Operative Diagnosis: see a/p diagnoses Post-Operative Diagnosis: same Surgery / Procedure Performed: Spontaneous Vaginal Delivery Type of Anesthesia: Epidural Special Medications: none Estimated Blood Loss: 100 Fluids Replaced: crystalloid Findings Description of Procedure: Patient began pushing and delivered the head in the CHRISTOPHER presentation. The head was delivered atraumatically and a loose nuchal cord ?1 was identified and the infant delivered through without complication. The anterior and posterior shoulders delivered without complication followed by the rest of the and the infant was placed on the maternal abdomen. Delayed cord clamping was employed for approximately 60 seconds. Cord was clamped and cut and gentle traction was applied to the cord and the placenta delivered spontaneously immediately following it was noted to be intact with three-vessel cord. The perineum and vagina were inspected and noted to have no laceration. EBL was 100. Patient and infant tolerated delivery well. Amniotic Fluid Description: Clear Placental Delivery Description: Spontaneous Placenta Disposition: [facility] Cord Vessel Description: 3 Vessels Cord Entanglement: Around neck x 1, loose Delayed Cord Clamping: Yes Post Vaginal Delivery Medications Given After Delivery: - (Pitocin) Episiotomy Description: None Complication Complications: None Procedures Urinary/Genital [id number]: [id number] Vaginal Delivery+ Care([facility])
--- NOTE | 2023-07-28 13:32 | DCINST_ITS ---
Discharge Instructions Diet Discharge Diet: No restrictions Activity Discharge Activity: Return to Normal Activity, May Not Drive (while taking narcotic pain medications.) and May Shower May resume sexual activity in: 4-6 weeks Dressing / Incision Call your doctor if your incision/area has: Continuous Slow Oozing, Sudden Increased Bleeding, Increased Pain/ Swelling, Increased Redness and Foul Smelling Discharge Follow Up Care Please Follow Up With: Kirti Sweeney MD When: Call [phone] to make an appointment with your doctor in 6 weeks. If you had elevated blood pressure or 4th degree laceration, you will need to be seen in 2 weeks. Test Results: Test results from this visit will be discussed in further detail at your follow- up appointment, if applicable. Discharge Plan Admission Admit Date/Time: 07/27/23 17:18 Attending Provider: Kirti Sweeney Primary Care Provider: Care Physician,Tere Primary Discharge Orders/Prescriptions Prescriptions: No Action Iron (ferrous sulfate) vitamin#30 30 mg iron-10 mg iron-folic acid 1 mg-omg3 capsule 30 mg iron-10 mg iron-1 mg capsule 1 cap PO DAILY Qty: 90 3RF Referrals / Follow Up: Care Physician,No Primary [Primary Care Provider] - Disposition Disposition (needs filled in before D/C Order can be placed): Home, Self Care
[2023-07-28] MEDS: fentaNYL-bupivacaine (epidural) 100 ML BAG EPIDURAL (13:38)
[2023-07-28] MEDS: Oxytocin 10 UNITS/ML Vial IM (15:15)
[2023-07-28] MEDS: Nalbuphine 10 MG/ML Ampul 5 MG IV (15:33)
[2023-07-28] MEDS: Oxytocin 15 Units/NS 250ml 15 UNITS/250 ML IV.SOLN 83 UNITS IV (15:45)
--- NOTE | 2023-07-28 19:26 | NURSING ---
[address] goss to clarify what she wants the rate of magnesium sulfate to infuse at. states that she wants 2 gm per hour now that she is delivered- rate changed
[2023-07-28] MEDS: Lactated Ringers 1,000 ML 15 ML IV (21:41)
[2023-07-29] VITALS (22 sets, daily range): BP systolic 119–142; BP diastolic 71–89; PULSE 72–93; RESP 14–18; TEMP 36.3–37.3; O2SAT 96–100
[2023-07-29] MEDS: Magnesium Sulfate 20 GM/500 ML BAG IV ×2 (04:53→10:29)
[2023-07-29 06:14] LABS: Hematocrit 38.1 % (37-47); Hemoglobin 12.8 g/dL (12.0-15.0); Mean Corp Hgb Conc 33.6 g/dL (32-36); Mean Corpuscular Hgb 31.8 pg (27.0-32.0); Mean Corpuscular Volume 94.8 fL (81-99); Mean Platelet Vol. 10.1 fl (6.2-12.0); Platelet Count 214 K/mm3 (150-450); RBC Distribution Width CV 13.2 % (11.6-14.6); RBC Distribution Width SD 45.6 fl (35.1-43.9); Red Blood Count 4.02 M/mm3 (4.2-5.4); White Blood Count 12.7 K/mm3 (4.4-11.0)
[2023-07-29 07:11] LABS: ALB/GLOB Ratio 0.6 RATIO (0.9-2.4); AST(SGOT) 16 U/L (15-37); Alanine Aminotransfer ALT/SGPT 16 U/L (13-56); Albumin, Serum 2.4 g/dL (3.2-5.0); Alkaline Phosphatase 134 U/L (45-117); Anion Gap 4 (5-15); BUN 4 mg/dL (7-18); BUN/Creat Ratio 8.2 RATIO (10-20); Calcium,Total 9.6 mg/dL (8.5-10.1); Chloride 109 mmol/L (98-107); Creatinine, Serum 0.49 mg/dL (0.55-1.02); EST Glomerular Filtration Rate 148 mL/min (>60); Est Glom Filt Rate - Afr Amer 179 mL/min (>60); Estimated Creatinine Clearance 135.96 ml/min; Globulin 3.9 g/dL (2.2-4.2); Glucose 130 mg/dL (74-106); Potassium 4.1 mmol/L (3.5-5.1); Protein, Total 6.3 g/dL (6.4-8.2); Sodium Level 136 mmol/L (136-145)
[2023-07-29] MEDS: Labetalol 100 MG Tablet PO ×2 (10:01→22:09)
--- NOTE | 2023-07-29 10:02 | CASEMGMT ---
Social Work Assessment Labor and Delivery Unit Patient Address:[address] [place] [address] Phone number: [phone] Date of Referral: 07/29/23 Time of Referral:? 306 Referred By: Kirti Sweeney Date of Intervention: ??07/29/23 Time of Intervention:? 929 Reason for Referral:? history of depression Sw completed chart review and acknowledges social work consult due to maternal history of depression. Sw presented to bedside and introduced self to mother of baby (MIYA- Raymond) and explained reason for sw involvement. Sw completed psychosocial assessment and provided literature and list of resources. Father of baby (FOB- Delvin Farias) not present at time of assessment, MOB states that he is helping with the other boys at home. History obtained from: medical records and mother of baby (MIYA)??? Household composition: Currently residing in the home is MIYA, her three older children and now baby. MOB states that FOB resides in [place]. MOB reports that housing is safe and adequate. No housing concerns. - Older children are: Taeshawn (15 years old), Major (7 years old), and Guy (2 years old) Patient's parent/guardian status:? MOB states that she and FOB went to school together, and have been together for 12 years. MOB states that FOB has 4 other children that are not hers. baby is MOB and FOB third child together. MOB denies any concerns of domestic violence or intimate partner violence. ? Medical History: ?MOB is 7, para 3- now 4.MOB received MOB developed pre- eclampsia during and delivered baby via vaginal delivery at 35 weeks gestation. Baby boy, named Josy Ortega, was born on 07/28/[birth year] weighing 6lb 5oz and his apgars were 9 and 9 at one and five minutes of life respectfully. MOB states that she is pumping and providing milk but does not have a pump for home. Sw encouraged MOB to follow up with prior to discharge to ensure she is able to get a pump for home. MOB states that baby will be followed by Dr. Crandall for pediatrics. Educational Status:?MOB states that she and FOB both graduated from high school. MOB obtained some college education but did not graduate. MOB states that she is starting back to [employer] classes in December. Financial Status: MOB states that she doesn't know what CANDI does, she thinks that he works at a[employer]. MOB states that she is not employed at this time but is financially supported by CANDI. Infant Supplies:?MOB states that she has obtained everything she needs for baby, including: car seat, safe sleep space, clothes, diapers (needs to get more ), and wipes. MOB states that she will talk to about getting a breast pump before she is discharged. ? Childcare/Caregiver(s):?MIYA will be the primary caregiver to baby, MOB states that when she needs a management trainee program stores she has his Godmam that will be able to care for him. Transportation:?? MIYA reports that she has her drivers license and reliable means of transportation. No transportation barriers at this time. Programs/Agencies Involved: ???MIYA is connected to resources through [employer], including insurance, SNAP food benefits and WIC. MOB states that she already called and got baby added to her insurance this morning. MOB states that they are unable to add him to her food benefits until he is discharged from the hospital. Children Services/Legal Issues:?MOB denies history of involvement, no issues or concerns indicating need for referral at this time. ?? Behavioral Health Issues: ??Mental Health History:??MOB states that CANDI does not have any mental health diagnoses. MOB states that she has been diagnosed with depression, but has not struggled with depression for several years. MOB states that she is not on any medications to help with depression.? Substance Use History:?MOB denied substane use prior to and during . ? Family History:?MOB reports that her father was an alcoholic and has . MOB states that her oldest son has some behavioral health issues and has been diagnosed with ADD, ODD and Bipolar. MOB states that she has gotten him connected to mental health resources within the community and he is on an IEP to help him in school. ?? Drug Screens: ?The last urine screen documented in MOB medical record is from 2019 and it was negative for all substances. ? Family/Social Stressors:? MOB denies stressors at this time. MOB states that she does get overstimulated at home with all the boys that she has and their big age range. MOB states that when she gets overwhelmed she has supportive people that are able to recognize that she needs a break and they help her. Support Systems: MOB biggest supports are FOB (Delvin) and patient's God mom, Pebbles. Depression/Shaken Baby/Safe Sleeping:? Sw educated MOB on signs and symptoms of baby blues and depression/ anxiety. Sw explained to MOB that she may be more susceptible to experiencing one or both due to her mental health history, and due to MOB stating that she did experience baby blues after the of her first baby. MOB expressed understanding. Sw educated MOB on shaken baby prevention and ABCs of safe sleep. MOB expressed understanding. ASSESSMENT:?MOB admitted following delivery of baby boy at 35 weeks gestation and developing pre-eclampsia. MOB talkative and participated in assessment with sw. MOB reports to having all necessary provisions for baby. MOB with adequate supports to help her once discharged from hospital. MOB unemployed at this time, but is connected to financial resources through [employer]. MOB understanding of importance to recognize signs and symptoms of baby blues and depression and to seek help if symptoms were to become worse. MOB open and receptive to sw involvement and support. PLAN:? MOB and baby to be discharged tomorrow. ?No other services requested or indicated. Janie France, NUCLEAR MEDICINE TECH, SAILBOAT CAPTAIN
--- NOTE | 2023-07-29 10:27 | NURSING ---
IV bag of magnesium became detached from tubing. Approximately 250 mL of Magnesium wasted, new bag started with Sarah Atkinson RN.
--- NOTE | 2023-07-29 10:40 | NURSING ---
Pt transported to OR by [facility].
--- NOTE | 2023-07-29 14:08 | OP.PCM_ITS ---
Problems Associated Problem List Diagnoses (1) Sterilization: (2) Vaginal delivery: Report of Operation Date of Procedure: 07/29/23 Pre-Operative Diagnosis: sterilization Post-Operative Diagnosis: same Surgery/Procedure Performed:: tubal ligation filshie clips Description of Surgical Findings:: nl tubes and ovaries Surgeon: Kriti Sweeney dinkey operator slag: None Type of Anesthesia: General Special Medications: none Specimen's removed: tubes Drains: none Estimated Blood Loss (mL): 50 Fluids Replaced: crystalloid Description of Procedure: Patient was taken to the operating room and epidural anesthesia was found to be adequate. Patient was placed in the dorsal supine position was prepped and draped in normal sterile fashion. Morfin catheter was used to drain the bladder. Infra umbilical incision was made with a scalpel after injecting with marcaine and carried through the underlying layer of the fascia with a scalpel fascial incision was extended bilaterally with [place] scissors and bowel packed away and the right fallopian tube identified confirmed to be fallopian tube by following it out to the fimbria and a Filshie clip was applied in the mid interstitial portion of the fallopian tube noting to completely transect the tube. This was repeated on the left side where the tube was identified and followed out to the fimbria and confirmed to be fallopian tube and then the mid interstitial portion of the tube was completely transected with the Filshie clip. Excellent hemostasis was noted. Fascia was closed with 0 Vicryl and skin closed with 3-0 Monocryl. No complications. Patient was taken recovery in stable condition. Grafts/Implants Used: none Complications none Admit VTE Documentation VTE Present on Admission: No VTE Mechan Device Prophylaxis: SCD's Multi Select Codes Urinary/Genital Urinary/Genital CPT Codes: 16405 PPTL
--- NOTE | 2023-07-29 14:58 | NURSING ---
This Instructor reviewed and agree with student charting
--- NOTE | 2023-07-29 16:37 | NURSING ---
Epidural catheter removed without complication, blue tip intact.
[2023-07-29] MEDS: Naproxen 500 MG Tablet PO (18:39)
[2023-07-30] MEDS: oxyCODONE 5 MG Tablet PO (00:42)
[2023-07-30 00:44] VITALS: BP 119/77; PULSE 75; RESP 16; TEMP 36.7; O2SAT 98
[2023-07-30 03:50] VITALS: BP 114/78; PULSE 70; RESP 16; TEMP 36.8; O2SAT 98
[2023-07-30] MEDS: Naproxen 500 MG Tablet PO ×2 (06:29→14:57)
[2023-07-30 08:45] VITALS: BP 129/81; PULSE 72; RESP 18; TEMP 36.8; O2SAT 98
--- NOTE | 2023-07-30 10:11 | PCM.DC.SUM ---
Providers Date of Admission: 07/27/23 Primary Care Physician: No Primary Care Phys Reason For Visit: VAGINAL DELIVERY Diagnosis Discharge Diagnosis (1) Sterilization: Status: Acute Code(s): Z30.2 - Encounter for sterilization (2) Vaginal delivery: Status: Acute Code(s): O80 - Encounter for full-term uncomplicated delivery Medications at Discharge Home Medications vitamin#30 30 mg iron-10 mg iron-folic acid 1 mg-omg3 capsule 1 cap PO DAILY #90 caps 07/07/23 Iron (ferrous sulfate) 07/27/23 Hospital Course Operations section and - (pp tubal ligation) Summary of Care Provided Hospital Course: IDA IQBAL, is a 42 F who presents for IOL secondary to severe preeclampsia, elevated bps in severe range, JASSO and blurry vision no clonus or hyperreflexia. induction resulted in a vaginal delivery. s/p magnesium drip for 24 hours . bp now controlled on PO labetolol. Physical Exam Const alert and no apparent distress Resp normal respiratory effort, no retractions and clear to auscultation bilaterally Cardio regular rate and regular rhythm GI soft to palpation GI Narrative: hypoactive bowel sound, not yet passing gas. umbilical incision c/d/i. no s/sx of infection external exam normal Extremity normal to inspection, no calf tenderness and no pedal edema Skin no rashes or lesions noted Neuro moves all extremities and deep tendon reflexes 2+ bilaterally Motor Exam: strength 5/5 throughout Psych mental status grossly normal Weight / BMI Weight Weight: 220 lb Body Mass Index (BMI) 36.6 ABG / Lab / Microbiology Data 07/29/23 06:06 07/29/23 06:06 Microbiology: Microbiology 07/27/23 21:40 Interface Orders Chlamydia trachomatis (PCR) - Final 07/27/23 21:40 Interface Orders Neisseria gonorrhoeae (PCR) - Final 07/27/23 21:40 Urine, Clean Catch Neisseria gonorrhoeae (PCR) - Final D/C Instructions Discharge Diet: No restrictions May resume sexual activity in: 4-6 weeks Call your doctor if your incision/area has: Continuous Slow Oozing, Sudden Increased Bleeding, Increased Pain/ Swelling, Increased Redness and Foul Smelling Discharge Please Follow Up With: Kirti Sweeney MD When: Call [phone] to make an appointment with your doctor in 6 weeks. to be seen in the office in 1 week for a blood pressure check follow up. Meaningful Use Info Meaningful Use Diagnoses (Choose all that apply): None applicable Discharge Plan Admission Admit Date/Time: 07/27/23 17:18 Attending Provider: Kirti Sweeney Primary Care Provider: Care Physician,Tere Primary Discharge Orders/Prescriptions Prescriptions: No Action Iron (ferrous sulfate) vitamin#30 30 mg iron-10 mg iron-folic acid 1 mg-omg3 capsule 30 mg iron-10 mg iron-1 mg capsule 1 cap PO DAILY Qty: 90 3RF Referrals / Follow Up: Care Physician,No Primary [Primary Care Provider] - Disposition Disposition (needs filled in before D/C Order can be placed): Home, Self Care
--- NOTE | 2023-07-30 10:46 | CASEMGMT ---
Social Work SW spoke w/pt as RN expressed concern about pt, she had mentioned she didn't want FOB to know she was taking pain meds, and also he was yelling at her on the phone to get up. Pt states there is no concern for safety. She states they have been together for 14 years, he is the father of two of her other children. She states he lives in [place] but comes to help a lot. She states they do better living apart from one another. She states he gets concerned about her getting addicted to pain meds as she had addiction issues in the past. She states again no concerns about safety at this time. SW informed RN. GERMÁN Castillo
[2023-07-30] MEDS: Acetaminophen 500 MG Tablet 1000 MG PO ×2 (10:51→18:28)
[2023-07-30] MEDS: Labetalol 100 MG Tablet PO ×2 (10:51→18:36)
[2023-07-30] MEDS: Senna/Docusate Sodium 1 Tablet PO (10:51)
[2023-07-30 10:52] VITALS: BP 132/80; PULSE 81
[2023-07-30 14:15] VITALS: BP 121/76; PULSE 80; RESP 18; TEMP 36.4; O2SAT 97
[2023-07-30] MEDS: Polyethylene Glycol 3350 17 GM PACKET PO (16:04)
[2023-07-30] MEDS: Influenza Virus Vac Quad 23-24 60 MCG/0.5 ML SYRINGE IM (17:59)
[2023-07-30] MEDS: Ondansetron 4 MG/2 ML Vial IV (18:10)
[2023-07-30] MEDS: 0.9% Saline Lock 10 ML Syringe IV (18:10)
[2023-07-30 18:40] VITALS: BP 125/80; PULSE 94; RESP 19; TEMP 36.5; O2SAT 99
== END 2023-07-30 18:55 | disposition home or self-care (01) | DRG 541 ==
LOC: WPOUT 17:22 → WP 07-28 10:08
PROVIDERS: Admitting Provider Obstetrics & Gynecology; Referring Provider Obstetrics & Gynecology; Visit Provider Obstetrics & Gynecology
PROC: 0UL70ZZ Occlusion of Bilateral Fallopian Tubes, Open Approach (ICD-10-PCS; principal; 2023-07-29 11:15)
DX: O14.14 Severe pre-eclampsia complicating childbirth (principal); Z37.0 Single live birth; E66.01 Morbid (severe) obesity due to excess calories; O16.4 Unspecified maternal hypertension, complicating childbirth; O99.02 Anemia complicating childbirth; Z30.2 Encounter for sterilization; O69.81X0 Labor and delivery complicated by cord around neck, without compression, not applicable or unspecified; O99.214 Obesity complicating childbirth; Z3A.35 35 weeks gestation of pregnancy
CPT/HCPCS: 59025; 59050; 80053; 82565; 82570; 84156; 84450; 84460; 84550; 85025; 85027; 86780; 86850; 86900; 86901; 87491; 87591; 99221; J7030; J7120; 90686; A4216; G0378; J0290; J0702; J2405

== ENCOUNTER 2023-08-11 16:50 | Outpatient (CLI) | payer MEDICAID, SELFPAY ==
[2023-08-11] VITALS (7 sets, daily range): BP systolic 139–196; BP diastolic 83–110; PULSE 60–75; BMI 35.2
[2023-08-11] MEDS: NIFEdipine 10 MG Capsule PO (17:47)
[2023-08-11 18:02] LABS: Hematocrit 42.2 % (37-47); Hemoglobin 13.4 g/dL (12.0-15.0); Mean Corp Hgb Conc 31.8 g/dL (32-36); Mean Corpuscular Hgb 30.4 pg (27.0-32.0); Mean Corpuscular Volume 95.7 fL (81-99); Platelet Count 270 K/mm3 (150-450); RBC Distribution Width CV 12.2 % (11.6-14.6); RBC Distribution Width SD 43.4 fl (35.1-43.9); Red Blood Count 4.41 M/mm3 (4.2-5.4); White Blood Count 5.8 K/mm3 (4.4-11.0)
[2023-08-11] MEDS: NIFEdipine 10 MG Capsule 20 MG PO (18:19)
[2023-08-11 18:34] LABS: AST(SGOT) 17 U/L (15-37); Alanine Aminotransfer ALT/SGPT 26 U/L (13-56); Creatinine, Serum 0.69 mg/dL (0.55-1.02); EST Glomerular Filtration Rate 99 mL/min (>60); Est Glom Filt Rate - Afr Amer 120 mL/min (>60); Estimated Creatinine Clearance 96.55 ml/min; LDH 195 U/L (84-246); Uric Acid 4.2 mg/dL (2.6-6.0)
[2023-08-11] MEDS: Labetalol 100 MG Tablet PO (18:49)
--- NOTE | 2023-08-18 18:30 | OB.TRI.PN ---
Progress Notes Date of Service: 08/11/23 Progress Note: patient seen for posptartum elevated blood pressures- bps meds adjusted, labs drawn, tylenol given. repeat bps better controlled, stable for discharge, close fu as outpatient Laboratory Studies: Laboratory Tests 08/11/23 Range/Units 17:45 WBC 5.8 (4.4-11.0) K/mm3 RBC 4.41 (4.2-5.4) M/mm3 Hgb 13.4 (12.0-15.0) g/dL Hct 42.2 (37-47) % MCV 95.7 (81-99) fL MCH 30.4 (27.0-32.0) pg MCHC 31.8 L (32-36) g/dL RDW Std Deviation 43.4 (35.1-43.9) fl RDW Coeff of [place] 12.2 (11.6-14.6) % Plt Count 270 (150-450) K/mm3 MPV 10.0 (6.2-12.0) fl Creatinine 0.69 (0.55-1.02) mg/dL Estim Creat Clear Calc 96.55 ml/min Est GFR (MDRD) Af Amer 120 (>60) mL/min Est GFR (MDRD) Non-Af 99 (>60) mL/min Uric Acid 4.2 (2.6-6.0) mg/dL AST 17 (15-37) U/L ALT 26 (13-56) U/L Lactate Dehydrogenase 195 (84-246) U/L Assessment & Plan (1) Pre-eclampsia, severe, third trimester: COMMENT: 08/11 started on procardia 30 daily and labetalol 100 TID, check home bps snd fu in office in 1 week
== END 2023-08-11 20:13 | disposition home or self-care (01) ==
LOC: WPOUT 16:56 → WP 16:57
PROVIDERS: Visit Provider Obstetrics & Gynecology
DX: O14.13 Severe pre-eclampsia, third trimester (principal); Z79.899 Other long term (current) drug therapy; Z3A.00 Weeks of gestation of pregnancy not specified
CPT/HCPCS: 36415; 82565; 83615; 84450; 84460; 84550; 85027; 99221; G0378

== ENCOUNTER 2025-01-18 09:09 | Emergency (ER) | payer MEDICAID, SELFPAY ==
[2025-01-18 09:10] VITALS: BP 172/93; PULSE 70; RESP 16; TEMP 36.8; O2SAT 100; BMI 38.3
--- NOTE | 2025-01-18 09:13 | EX.ED.VIS.HA ---
HPI History of Present Illness Chief Complaint: Headache Onset/Context/Timing Onset: Days (3-4) Context: Gradual Timing: Continuous Quality -Headache: Positive for Dull Location: Frontal with radiation into her neck Worsened by: Noises Relieved by: Sleep Associated Symptoms/Injury Associated Symptoms: Positive for Sinus Pressure and Numbness (Patient admits to numbness in her fingers today); Negative for Fever, Nausea, Vomiting, Sore Throat, Tingling, Preceding Aura, Visual Changes, Blurred Vision, Photophobia or Visual Loss Injury - JASSO: Negative for Direct Trauma, Fall or Assault Narrative Narrative: Patient presents with headache that has been constant for the past 3 to 4 days. Patient states her pain is over the frontal area. Patient describes it as dull and aching. Patient states it radiates into her neck. Patient states that she checked her blood pressure and it was elevated at home. Patient states she is not on any blood pressure medications at this time. Patient denies any visual changes. Patient denies any nausea or vomiting. Patient denies any fevers or chills. Patient denies any trauma or injury. [facility] Medical History Family history of hearing loss at age younger than 7 years HPV (human papilloma virus) infection Asthma Depression Anemia Positive GBS test Thyromegaly HPV test positive Low grade squamous intraepithelial lesion (LGSIL) Depression affecting Family history of trisomy 18 Hypertension Low grade squamous intraepithelial lesion (LGSIL) Home Medications ?Medication ?Instructions ?Recorded ?Last Taken ?Type labetalol 100 mg tablet 100 mg PO BID #60 tabs 09/01/23 Unknown Rx nifedipine 30 mg tablet,extended 30 mg PO DAILY #30 tabs 01/18/25 Unknown Rx release 24 hr (Procardia XL) Allergy/AdvReac Type Severity Reaction Status Date / Time iodine Allergy Hives Verified 01/18/25 09:13 Family History Unknown Diabetes Surgical History S/P tubal ligation (~07/29/23) H/O LEEP H/O dilation and curettage H/O hernia repair Social History adopted: No household members: family number of children: 3 current occupational status: employed 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 Smoking Status: Former smoker alcohol intake: never substance use type: does not use caffeine: Yes what type of physical activity do you participate in: walking seatbelt use: always do you feel safe at home: Yes additional social history: - Kenny BURT ROS ED Constitutional Constitutional ED: Denies chills or fever(s) Eyes Eyes: Denies blurry vision or change in vision ENT ENT ED: Denies rhinorrhea or sore throat Cardiovascular Cardiovascular: Denies chest pain or palpitations Respiratory/Chest Respiratory/Chest: Denies cough or dyspnea Gastrointestinal Gastrointestinal: Denies nausea or vomiting Genitourinary Genitourinary ED: Denies dysuria or hematuria Musculoskeletal Musculoskeletal: Reports neck pain; Denies back pain Integumentary Denies abscess or rash Neurologic Neurologic: Reports headache(s); Denies weakness Allergic/Immunologic Allergic/Immunologic ED: Denies mouth swelling or urticaria EXAM Physical Exam Const Vital Signs: 01/18/25 09:10 01/18/25 12:09 Temperature 98.2 F Temperature Source Oral Pulse Rate 70 66 Respiratory Rate 16 18 Blood Pressure 172/93 H 143/91 H Blood Pressure Mean 119 108 Pulse Ox 100 99 Oxygen Delivery Method Room Air Room Air Positive well nourished and well developed General Appearance ED: well developed and NAD HEENT Reports normocephalic and moist mucous membranes atraumatic; Negative for temporal artery tenderness Face and Sinus: sinus tenderness Positive for frontal Eyes PERRL and EOMs intact bilaterally Neck supple and no JVD Resp normal respiratory effort and clear to auscultation bilaterally Cardio regular rate and regular rhythm GI non-tender Palpation: soft Back/Spine Back/Spine Narrative: There is some mild cervical paraspinal tenderness. There is no midline tenderness. There is no bony crepitus or step-off noted. There is full range of motion. Extremity normal to inspection and full ROM Neuro oriented x3, CN's II-XII intact bilaterally and no sensory deficits noted Brenda Coma Scale: document GCS findings Spontaneous Obeys Commands Oriented 15 Sensorium / Orientation: awake and alert Speech: speech normal Motor Exam: strength 5/5 throughout Psych mental status grossly normal MDM MDM MDM Narrative Medical decision making narrative: Differential diagnosis includes tension headache, hypertension, sinusitis, migraine headache, and viral upper respiratory infection. CBC will be obtained to assess for leukocytosis and anemia. Basic metabolic profile will be obtained to assess for electrolyte abnormal renal function. CT scan of the brain will be obtained to assess for intracranial bleeding and sinusitis. Lab Data Attestation: I reviewed the patient's lab results. Lab results narrative: CBC was reviewed. There is a mild anemia with a hemoglobin of 9.6 and hematocrit of 31.3. The remainder is within normal limits. Basic metabolic profile was reviewed and was within normal limits. Serum hCG was reviewed and was negative. Labs: Laboratory Results - last 24 hr 01/18/25 10:11 WBC 5.3 RBC 4.31 Hgb 9.6 L Hct 31.3 L MCV 72.6 L MCH 22.3 L MCHC 30.7 L RDW Std Deviation 47.4 H RDW Coeff of [place] 18.2 H Plt Count 330 MPV 9.5 Immature Gran % (Auto) 0.200 Neut % (Auto) 48.8 Lymph % (Auto) 41.9 H [place] % (Auto) 7.0 Eos % (Auto) 1.5 Baso % (Auto) 0.6 Absolute Neuts (auto) 2.6 Absolute Lymphs (auto) 2.21 Nucleated RBC % 0 Sodium 137 Potassium 3.9 Chloride 107 Carbon Dioxide 20.9 L Anion Gap 9 BUN 9 Creatinine 0.71 Estim Creat Clear Calc 122.64 Est GFR (MDRD) Non-Af 108 BUN/Creatinine Ratio 12.3 Glucose 101 H Calcium 9.8 Serum , Qual NEGATIVE Radiography Diagnostic Testing: Clinical Impression(s) from Imaging Studies Brain CT 01/18/25 11:25 IMPRESSION: No acute intracranial abnormality. Reading Location: [facility] CT scan of the brain was obtained. There is no acute intracranial abnormality. This was interpreted by the radiologist and was also independently reviewed by myself. Treatment and Re-Evaluation Narrative: Patient was given a dose of labetalol here. Patient was feeling better on reevaluation. Patient was advised that her headache may be related to her blood pressure. Patient was given her prescription for refills of her nifedipine. Patient was instructed to follow-up with her primary care physician in 5 to 7 days. Patient was instructed to continue to monitor her blood pressures. Patient was instructed to keep a log of her blood pressures and follow-up with her primary care physician for further management. Patient understood and was agreeable with the plan. All questions were answered. Discharge Plan Triage Chief Complaint: Headache ED Provider: Prosper Turner Dx/Rx/DC Orders Clinical Impression: Headache, Elevated blood pressure reading Instructions: ED Headache Unspecified, ED Hypertension, To Be Confirmed Prescriptions: Continued nifedipine [Procardia XL] 30 mg tablet extended release 24hr 30 mg PO DAILY Qty: 30 0RF No Action labetalol 100 mg tablet 100 mg PO BID Qty: 60 0RF Primary Care Provider: Care Physician,No Primary Referrals: Serena Salas MD [Med Staff - Craft Demonstrator] - 5-7 Days Care Physician,No Primary [Primary Care Provider] - Print Language: Luxembourgish Disposition Disposition: Home, Self Care
[2025-01-18 10:18] LABS: Absolute Lymphocyte Count 2.21 X10^3/uL (0.83-4.51); Absolute Neutrophil Count 2.6 X10^3/uL (2.0-7.7); Basophil# 0.03 X10^3/uL; Basophil% 0.6 % (0-1); Eosinophil# 0.08 X10^3/uL; Eosinophils% 1.5 % (0-5); Hematocrit 31.3 % (37-47); Hemoglobin 9.6 g/dL (12.0-15.0); Lymphocyte # 2.21 X10^3/ul (0.83-4.51); Lymphocyte % 41.9 % (19-41); Mean Corp Hgb Conc 30.7 g/dL (32-36); Mean Corpuscular Hgb 22.3 pg (27.0-32.0); Mean Corpuscular Volume 72.6 fL (81-99); Mean Platelet Vol. 9.5 fl (6.2-12.0); Monocyte# 0.37 X10^3/uL; NRBC Flagged by Analyzer 0 % (0-5); Neutrophil # 2.58 X10^3/uL (2.7-7.7); Neutrophil % 48.8 % (47-70); Platelet Count 330 K/mm3 (150-450); RBC Distribution Width CV 18.2 % (11.6-14.6); RBC Distribution Width SD 47.4 fl (35.1-43.9); Red Blood Count 4.31 M/mm3 (4.2-5.4); White Blood Count 5.3 K/mm3 (4.4-11.0)
[2025-01-18 10:53] LABS: Anion Gap 9 (5-15); BUN 9 mg/dL (4-19); BUN/Creat Ratio 12.3 RATIO (10-20); Calcium,Total 9.8 mg/dL (7.6-11.0); Carbon Dioxide 20.9 mmol/L (21.0-32.0); Chloride 107 mmol/L (98-108); Creatinine, Serum 0.71 mg/dL (0.70-1.20); EST Glomerular Filtration Rate 108 (>60); Estimated Creatinine Clearance 122.64 ml/min (50-250); Glucose 101 mg/dL (70-99); Potassium 3.9 mmol/L (3.3-5.1); Sodium Level 137 mmol/L (133-145)
[2025-01-18 11:16] LABS: Internal QC Validated? YES +Cl - CLEAR BKGD; Pregnancy, Serum, hCG Quali. NEGATIVE Negative
--- NOTE | 2025-01-18 11:25 | CT_ITS ---
PROCEDURE: BRAIN/HEAD WITHOUT CONTRAST 01/18/2025 REASON FOR EXAM: PAIN TECHNIQUE: Head CT without intravenous contrast. Coronal and Sagittal reconstruction series were provided. One or more dose reduction techniques were used (e.g., Automated exposure control, adjustment of the mA and/or kV according to patient size, use of iterative reconstruction technique. COMPARISON: None FINDINGS: No acute intracranial hemorrhage. No loss of ocampo-white differentiation.The ventricles and sulci are normal in appearance. The osseous structures are unremarkable. No soft tissue abnormality identified. The paranasal sinuses and mastoid air cells are clear. CT/Brain/Head without Contrast IMPRESSION: No acute intracranial abnormality. Reading Location: [facility]
[2025-01-18 12:09] VITALS: BP 143/91; PULSE 66; RESP 18; O2SAT 99
--- NOTE | 2025-01-18 12:39 | CM.ED ---
Social work Reason for referral: no PCP Referral source: case find This SW identified patient's lack of PCP and need for resources. This SW entered patient's room, introducing self and role at [facility]. Patient accepted SW visit and confirmed lack of PCP. Patient accepted resources of [facility] Provider Directory and Agnieszka Bush information. Patient denied further needs at this time. La Lim, PRESS TENDER SMOKE SIGNAL, ARTILLERY MAINTENANCE SUPERVISOR
--- NOTE | 2025-01-18 12:48 | ED.RN ---
THIS RN ASSUMES CARE AT 1230 PM. PT BP REMAINS HIGH. PREVIOUSLY ORDERED MEDICATION NOT GIVEN, DR AWARE MEDICATION TO BE GIVEN. PT ASSESSED BY THIS RN AT THIS TIME
[2025-01-18 13:46] VITALS: BP 144/70; PULSE 78; RESP 16; TEMP 36.6; O2SAT 99
== END 2025-01-18 13:47 | disposition home or self-care (01) ==
PROVIDERS: Emergency Provider Emergency Medicine; Visit Provider Emergency Medicine
DX: R51.9 Headache, unspecified (principal); I10 Essential (primary) hypertension; Z87.891 Personal history of nicotine dependence; J45.909 Unspecified asthma, uncomplicated
CPT/HCPCS: 70450; 80048; 84703; 85025; 99283; A4216

== ENCOUNTER 2025-03-04 11:15 | Emergency (ER) | payer MEDICAID, SELFPAY ==
[2025-03-04 11:16] VITALS: BP 140/86; PULSE 83; RESP 15; TEMP 36.8; O2SAT 100; BMI 37.2
[2025-03-04 11:51] LABS: Absolute Lymphocyte Count 2.23 X10^3/uL (0.83-4.51); Absolute Neutrophil Count 5.8 X10^3/uL (2.0-7.7); Basophil# 0.03 X10^3/uL; Basophil% 0.3 % (0-1); Eosinophil# 0.04 X10^3/uL; Eosinophils% 0.5 % (0-5); Hematocrit 30.9 % (37-47); Hemoglobin 9.2 g/dL (12.0-15.0); Lymphocyte # 2.23 X10^3/ul (0.83-4.51); Lymphocyte % 25.3 % (19-41); Mean Corp Hgb Conc 29.8 g/dL (32-36); Mean Corpuscular Hgb 20.9 pg (27.0-32.0); Mean Corpuscular Volume 70.2 fL (81-99); Mean Platelet Vol. 9.1 fl (6.2-12.0); Monocyte# 0.66 X10^3/uL; Monocyte% 7.5 % (0-10); NRBC Flagged by Analyzer 0 % (0-5); Neutrophil # 5.83 X10^3/uL (2.7-7.7); Neutrophil % 66.1 % (47-70); Platelet Count 373 K/mm3 (150-450); RBC Distribution Width CV 17.4 % (11.6-14.6); RBC Distribution Width SD 44.3 fl (35.1-43.9); White Blood Count 8.8 K/mm3 (4.4-11.0)
[2025-03-04 12:34] LABS: Internal QC Validated? YES +Cl - CLEAR BKGD; Pregnancy, Serum, hCG Quali. NEGATIVE Negative
[2025-03-04 12:45] LABS: ALB/GLOB Ratio 1.1 RATIO (0.9-2.4); AST(SGOT) 17 U/L (<=31); Alanine Aminotransfer ALT/SGPT 11 U/L (<=34); Albumin, Serum 4.1 g/dL (3.5-5.0); Alkaline Phosphatase 87 U/L (35-104); Anion Gap 11 (5-15); BUN 5 mg/dL (4-19); BUN/Creat Ratio 7.8 RATIO (10-20); Calcium,Total 10.2 mg/dL (7.6-11.0); Carbon Dioxide 20.4 mmol/L (21.0-32.0); Chloride 103 mmol/L (98-108); EST Glomerular Filtration Rate 110 (>60); Globulin 3.8 g/dL (2.2-4.2); Glucose 113 mg/dL (70-99); Potassium 3.8 mmol/L (3.3-5.1); Protein, Total 7.9 g/dL (5.9-8.4); Sodium Level 135 mmol/L (133-145); Total Bilirubin 0.35 mg/dL (0.00-1.30)
--- NOTE | 2025-03-04 14:25 | EX.ED.DYSGE1 ---
HPI History of Present Illness Chief Complaint: Flank Pain Informant: patient Narrative Narrative: 44-year-old female presenting to the emergency room with bilateral flank pain. Patient states that last night she developed significant chills as well as pain in her bilateral upper abdominal quadrants and to the bilateral CVA she notes nausea and some mild sweats. No fevers. She notes her urine is small. She has not had any blood in the urine. No diarrhea. She states that she had a similar discomfort last week but resolved. 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 She has a history of hypertension. No history of kidney stones. She is felt nauseated today so she did not eat. [facility] Medical History Family history of hearing loss at age younger than 7 years HPV (human papilloma virus) infection Asthma Depression Anemia Positive GBS test Thyromegaly HPV test positive Low grade squamous intraepithelial lesion (LGSIL) Depression affecting Family history of trisomy 18 Hypertension Low grade squamous intraepithelial lesion (LGSIL) Home Medications ?Medication ?Instructions ?Recorded ?Last Taken ?Type labetalol 100 mg tablet 100 mg PO BID #60 tabs 09/01/23 Unknown Rx nifedipine 30 mg tablet,extended 30 mg PO DAILY #30 tabs 01/18/25 Unknown Rx release 24 hr (Procardia XL) cephalexin 500 mg capsule 500 mg PO TID 7 days #21 caps 03/04/25 Unknown Rx ondansetron 4 mg disintegrating 4 mg PO Q6H PRN PRN Nausea #15 tabs 03/04/25 Unknown Rx tablet Allergy/AdvReac Type Severity Reaction Status Date / Time iodine Allergy Hives Verified 03/04/25 11:16 Family History Unknown Diabetes Surgical History S/P tubal ligation (~07/29/23) H/O LEEP H/O dilation and curettage H/O hernia repair Social History adopted: No household members: family number of children: 3 current occupational status: employed 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 [employer] Smoking Status: Unknown if ever smoked alcohol intake: never substance use type: does not use caffeine: Yes what type of physical activity do you participate in: walking seatbelt use: always do you feel safe at home: Yes additional social history: - Kenny JAVED ROS ED Constitutional Constitutional ED: Reports chills and sweats; Denies fever(s) or weight loss Eyes Eyes: Denies change in vision or diplopia ENT ENT ED: Denies ear pain, rhinorrhea or sore throat Cardiovascular Cardiovascular: Denies chest pain, orthopnea, palpitations or racing heartbeat Respiratory/Chest Respiratory/Chest: Denies cough, dyspnea or orthopnea Gastrointestinal Gastrointestinal: Reports abdominal pain and nausea; Denies diarrhea or vomiting Genitourinary Genitourinary ED: Reports urinary frequency and other Details: Foul-smelling urine ; Denies dysuria or hematuria Musculoskeletal Musculoskeletal: Reports back pain; Denies arthralgias or myalgias Integumentary Denies abscess or rash Neurologic Neurologic: Denies headache(s) or weakness Psychiatric Psychiatric: Denies anxiety, depression, suicidal ideation or suicidal thoughts Endocrine Endocrinology: Denies polydipsia, polyphagia or polyuria Allergic/Immunologic Allergic/Immunologic ED: Denies mouth swelling, tongue swelling or urticaria EXAM Physical Exam Const Vital Signs: 03/04/25 11:16 03/04/25 16:08 Temperature 98.3 F 96.4 F L Temperature Source Oral Temporal Pulse Rate 83 73 Respiratory Rate 15 16 Blood Pressure 140/86 H 141/90 H Blood Pressure Mean 104 107 Pulse Ox 100 100 Oxygen Delivery Method Room Air Room Air Positive well nourished and well developed General Appearance ED: well developed HEENT Reports normocephalic, head/scalp atraumatic and moist mucous membranes Eyes PERRL and EOMs intact bilaterally Neck no lymphadenopathy, supple and no JVD Resp normal respiratory effort and clear to auscultation bilaterally Cardio regular rate, regular rhythm and no murmurs GI normal to inspection, nondistended, normoactive bowel sounds and non-tender Palpation: soft Back/Spine normal ROM General Back: CVA tenderness bilateral Extremity normal to inspection General Extremety ED: Negative for edema General Extremity: Negative for edema Neuro oriented x3 and CN's II-XII intact bilaterally Sensorium / Orientation: alert Motor Exam: strength 5/5 throughout Psych mental status grossly normal Mood & Affect: Negative for depressed or tearful Skin no rashes or lesions noted and no wounds MDM MDM MDM Narrative Medical decision making narrative: Differential diagnosis includes but not limited to UTI pyelonephritis kidney stone colitis Basic blood work is obtained white count 8.8 hemoglobin 9.2 platelet count 373. test is negative glucose 113. Urinalysis 5-10 white cells 1+ bacteria positive leukocyte esterase negative nitrates 3-5 red cells 5-10 squamous cells. This could be weakly positive UTI but could also be contamination. CT of the abdomen pelvis was obtained without contrast due to patient's allergy. I am told that the CT reads are not to be available for a prolonged period of time. I did look at the CT myself. CT of the abdomen pelvis does not demonstrate any obvious kidney stone hydronephrosis or hydroureter. If the CT read comes back find something that is clinically significant we will call the patient. I do think it is reasonable that we do a urine culture I can write for the patient to have an antibiotic as well as some nausea medication. I would strongly encourage her to establish primary care History & Record Review Discussion w/independent historian: Patient Lab Data Attestation: I reviewed the patient's lab results. Labs: Laboratory Results - last 24 hr 03/04/25 03/04/25 11:42 15:08 WBC 8.8 RBC 4.40 Hgb 9.2 L Hct 30.9 L MCV 70.2 L MCH 20.9 L MCHC 29.8 L RDW Std Deviation 44.3 H RDW Coeff of [place] 17.4 H Plt Count 373 MPV 9.1 Immature Gran % (Auto) 0.300 Neut % (Auto) 66.1 Lymph % (Auto) 25.3 Young % (Auto) 7.5 Eos % (Auto) 0.5 Baso % (Auto) 0.3 Absolute Neuts (auto) 5.8 Absolute Lymphs (auto) 2.23 Nucleated RBC % 0 Sodium 135 Potassium 3.8 Chloride 103 Carbon Dioxide 20.4 L Anion Gap 11 BUN 5 Creatinine 0.70 Estim Creat Clear Calc 118.10 Est GFR (MDRD) Non-Af 110 BUN/Creatinine Ratio 7.8 L Glucose 113 H Calcium 10.2 Total Bilirubin 0.35 AST 17 ALT 11 Alkaline Phosphatase 87 Total Protein 7.9 Albumin 4.1 Globulin 3.8 Albumin/Globulin Ratio 1.1 Serum , Qual NEGATIVE Urine Color Yellow Urine Clarity Clear Urine pH 6.5 Ur Specific [place] 1.015 Urine Protein 30 H Urine Glucose (UA) Normal Urine Ketones Negative Urine Occult Blood 50 H Urine Nitrite Negative Urine Bilirubin Negative Urine Urobilinogen Normal Ur Leukocyte Esterase 100 H Urine RBC 0-5 SEEN Urine WBC 5-10 SEEN Ur Squamous Epith Cells 5-10 SEEN Urine Bacteria 1+ Urine Mucus 0 SEEN Discharge Plan Triage Chief Complaint: Flank Pain ED Provider: Jose De Paz Dx/Rx/DC Orders Clinical Impression: Bilateral flank pain, Nausea Instructions: ED Pyelonephritis, Female (Adult) Prescriptions: New cephalexin 500 mg capsule 500 mg PO TID 7 Days Qty: 21 0RF ondansetron 4 mg tablet,disintegrating 4 mg PO Q6H PRN PRN (Reason: Nausea) Qty: 15 0RF No Action nifedipine [Procardia XL] 30 mg tablet extended release 24hr 30 mg PO DAILY Qty: 30 0RF labetalol 100 mg tablet 100 mg PO BID Qty: 60 0RF Primary Care Provider: Care Physician,No Primary Referrals: Devonte Sims MD [Med Staff - Medical Pathology Teacher] - (as needed for primary care) Care Physician,No Primary [Primary Care Provider] - Print Language: Ug[place]an Disposition Disposition: Home, Self Care
[2025-03-04] MEDS: 0.9% Normal Saline (1000mL) 1,000 ML 999 ML IV (14:48)
[2025-03-04] MEDS: Ketorolac 30 MG/ML Syringe IV (14:48)
[2025-03-04] MEDS: Ondansetron 4 MG/2 ML Vial IV (14:48)
[2025-03-04 15:16] LABS: Mucous, Urine 0 SEEN /hpf (<or=2+)
[2025-03-04 15:22] LABS: Color, Urine Yellow (Yellow); Glucose, Dipstick Normal (Normal); Ketone-Dipstick Negative (Negative); Leukocyte Esterase-Dipstick 100 /ul (Negative); Nitrite-Dipstick Negative (Negative); Occult Blood-Urine 50 /ul (Negative); Protein-Dipstick 30 mg/dl (Negative); Specific Gravity, Urine 1.015 (1.002-1.030); Urine Bilirubin Dipstick Negative (Negative); Urine Clarity Clear (Clear); Urine Urobilinogen Normal (Normal); Urine pH 6.5 (5.0 - 8.0)
[2025-03-04 15:28] LABS: Bacteria 1+ /hpf (None Seen); Red Blood Cells-Urine 0-5 SEEN /hpf (0-5); Squamous Epithelial Cells - UA 5-10 SEEN /hpf (5-10); White Blood Cells 5-10 SEEN /hpf (0-5)
--- NOTE | 2025-03-04 15:33 | CT_ITS ---
EXAM: CT Abdomen and Pelvis Without Intravenous Contrast CLINICAL INDICATION: FLANK PAIN TECHNIQUE: Axial computed tomography images of the abdomen and pelvis without intravenous contrast. This CT exam was performed using one or more of the following dose reduction techniques: automated exposure control, adjustment of the mA and/or kV according to patient size, and/or use of iterative reconstruction technique. COMPARISON: No relevant prior studies available. FINDINGS: LUNG BASES: Unremarkable. No mass. No consolidation. MEDIASTINUM: Small esophageal hiatal hernia. ABDOMEN: LIVER: Hepatomegaly with fatty infiltration. GALLBLADDER AND BILE DUCTS: Unremarkable. No calcified stones. No ductal dilation. PANCREAS: Unremarkable. No ductal dilation. SPLEEN: Unremarkable. No splenomegaly. ADRENALS: Unremarkable. No mass. KIDNEYS AND URETERS: Unremarkable. No stones within either kidney. No hydronephrosis. STOMACH AND BOWEL: Fecal retention in the colon consistent with constipation. No obstruction. No mucosal thickening. PELVIS: APPENDIX: Normal appendix. BLADDER: Unremarkable. No stones. REPRODUCTIVE: Bilateral tubal ligation. ABDOMEN and PELVIS: INTRAPERITONEAL SPACE: Unremarkable. No free air. No significant fluid collection. BONES/JOINTS: No acute fracture. No dislocation. SOFT TISSUES: Unremarkable. VASCULATURE: Unremarkable. No abdominal aortic aneurysm. LYMPH NODES: Unremarkable. No enlarged lymph nodes. CT/Abdomen/Pelvis without Cont IMPRESSION: 1. Normal appendix. 2. Small esophageal hiatal hernia. 3. Hepatomegaly with fatty infiltration. 4. Fecal retention in the colon consistent with constipation. 5. No obstructive uropathy. Reading Location: [facility]
[2025-03-04 16:08] VITALS: BP 141/90; PULSE 73; RESP 16; TEMP 35.8; O2SAT 100
== END 2025-03-04 17:24 | disposition home or self-care (01) ==
PROVIDERS: Emergency Provider Emergency Medicine; Visit Provider Emergency Medicine
DX: R10.9 Unspecified abdominal pain (principal); R11.0 Nausea; I10 Essential (primary) hypertension; J45.909 Unspecified asthma, uncomplicated; R35.0 Frequency of micturition
CPT/HCPCS: 74176; 80053; 81001; 84703; 85025; 87077; 87086; 87088; 87186; 96361; 96374; 96375; 99283; A4216; J2405